=== PATIENT | male | born 1940 | race Caucasian/White ===

== ENCOUNTER 2020-02-22 07:45 | Outpatient (REF) | payer MEDICARE, SELFPAY ==
[2020-02-22 11:53] LABS: Albumin Level 3.9 g/dL (3.5-5.0); Anion Gap 15 (12-20); Blood Urea Nitrogen 36 mg/dL (9-16); Calcium 8.9 mg/dL (8.4-10.2); Carbon Dioxide 29 mmol/L (22-29); Chloride 105 mmol/L (96-108); Estimated Glomerular Filt Rate 46; Magnesium 2.5 mg/dL (1.6-2.6); Phosphorus 3.4 mg/dL (2.7-4.5); Potassium 4.7 mmol/l (3.3-5.1); Sodium 144 mmol/L (135-145)
[2020-02-22 11:58] LABS: Creatinine Urine 118.04 mg/dL; Protein/Creatinine Ratio, Ur 0.89 (<0.2); Total Protein Urine Random 105 mg/dL (<12)
[2020-02-22 12:18] LABS: Vitamin D 25-OH Total 47.7 ng/mL (>30)
[2020-02-22 13:40] LABS: Renal w Reflex Lab Use Only Order verified
[2020-02-23 18:57] LABS: Calcium (PTHI) 9.1 mg/dL (8.6-10.3); PTHI 124 pg/mL (14-64)
== END 2020-02-22 07:46 | disposition home or self-care (01) ==
LOC: HO.HMGCLDS 07:45
PROVIDERS: PCP Internal Medicine; Visit Provider Internal Medicine Nephrology
DX: I12.9 Hypertensive chronic kidney disease with stage 1 through stage 4 chronic kidney disease, or unspecified chronic kidney disease (principal); N18.30 Chronic kidney disease, stage 3 unspecified; D64.9 Anemia, unspecified; N17.9 Acute kidney failure, unspecified
CPT/HCPCS: 80051; 82040; 82306; 82310; 82565; 83735; 83970; 84100; 84156; 84520

== ENCOUNTER 2020-06-26 08:01 | Outpatient (REF) | payer MEDICARE, SELFPAY ==
[2020-06-26 11:39] LABS: Alanine Aminotransferase 39 U/L (0-40); Albumin Level 3.8 g/dL (3.5-5.0); Alkaline Phosphatase 95 U/L (39-117); Anion Gap 12 (12-20); Aspartate Amino Transferase 37 U/L (5-37); Blood Urea Nitrogen 36 mg/dL (9-16); Calcium 8.7 mg/dL (8.4-10.2); Carbon Dioxide 27 mmol/L (22-29); Chloride 106 mmol/L (96-108); Cholesterol 126 mg/dL; Estimated Glomerular Filt Rate 42; Glucose Fasting 116 mg/dL (60-99); HDL Cholesterol 31 mg/dL; LDL Cholesterol Calculated 72 mg/dl; Potassium 4.2 mmol/L (3.3-5.1); Sodium 141 mmol/L (135-145); Total Protein 6.7 g/dL (6.5-8.0); Triglycerides 119 mg/dL
[2020-06-26 11:52] LABS: Albumin Level 3.9 g/dL (3.5-5.0); Anion Gap 12 (12-20); Blood Urea Nitrogen 38 mg/dL (9-16); Calcium 9.1 mg/dL (8.4-10.2); Carbon Dioxide 27 mmol/L (22-29); Chloride 105 mmol/L (96-108); Estimated Glomerular Filt Rate 42; Magnesium 2.6 mg/dL (1.6-2.6); Phosphorus 3.5 mg/dL (2.7-4.5); Potassium 4.3 mmol/L (3.3-5.1); Sodium 140 mmol/L (135-145)
[2020-06-26 11:56] LABS: Vitamin D 25-OH Total 49.9 ng/mL (>30)
[2020-06-26 12:05] LABS: Creatinine Urine 164.17 mg/dL; Protein/Creatinine Ratio, Ur 0.68 (<0.2); Total Protein Urine Random 111 mg/dL (<12)
[2020-06-26 12:18] LABS: Renal w Reflex Lab Use Only Order verified
[2020-06-27 15:01] LABS: Calcium (PTHI) 9.4 mg/dL (8.6-10.3); PTHI 78 pg/mL (14-64)
== END 2020-06-26 08:02 | disposition home or self-care (01) ==
LOC: HO.HMGCLDS 08:01
PROVIDERS: PCP Internal Medicine; Referring Provider Nurse Practitioner; Visit Provider Internal Medicine Nephrology
DX: I12.9 Hypertensive chronic kidney disease with stage 1 through stage 4 chronic kidney disease, or unspecified chronic kidney disease (principal); D63.1 Anemia in chronic kidney disease; N18.30 Chronic kidney disease, stage 3 unspecified; N17.9 Acute kidney failure, unspecified; E21.3 Hyperparathyroidism, unspecified
CPT/HCPCS: 36415; 80051; 80053; 80061; 82040; 82306; 82310; 82565; 83735; 83970; 84100; 84156; 84520

== ENCOUNTER 2020-08-14 08:47 | Outpatient (REF) | payer MEDICARE, SELFPAY ==
[2020-08-14 11:59] LABS: Anion Gap 13 (12-20); Blood Urea Nitrogen 37 mg/dL (9-16); Calcium 9.5 mg/dL (8.4-10.2); Carbon Dioxide 32 mmol/L (22-29); Chloride 100 mmol/L (96-108); Estimated Glomerular Filt Rate 35; Glucose Random 113 mg/dL (60-115); Potassium 3.7 mmol/L (3.3-5.1); Sodium 141 mmol/L (135-145)
== END 2020-08-14 08:48 | disposition home or self-care (01) ==
LOC: HO.HMGCLDS 08:47
PROVIDERS: PCP Internal Medicine; Visit Provider Nurse Practitioner Acute Care
DX: I42.2 Other hypertrophic cardiomyopathy (principal)
CPT/HCPCS: 36415; 80048

== ENCOUNTER 2020-08-30 08:06 | Outpatient (REF) | payer MEDICARE, SELFPAY ==
[2020-08-30 11:53] LABS: B Type Natriuretic Peptide 576 pg/mL (<100)
== END 2020-08-30 08:07 | disposition home or self-care (01) ==
LOC: HO.HMGCLDS 08:06
PROVIDERS: PCP Internal Medicine; Visit Provider Nurse Practitioner
DX: I25.5 Ischemic cardiomyopathy (principal)
CPT/HCPCS: 36415; 83880

== ENCOUNTER 2020-09-05 14:11 | Outpatient (REF) | payer MEDICARE, SELFPAY ==
[2020-09-05 16:36] LABS: Hematocrit 34.2 % (42-52); Hemoglobin 10.8 g/dl (14.0-18.0); Mean Corpuscular HGB Conc 31.6 g/dl (31.0-36.0); Mean Corpuscular Hemoglobin 29.2 pg (27.0-33.0); Mean Corpuscular Volume 92.4 fL (80-98); Mean Platelet Volume 9.6 fL (9.4-12.4); Platelet Count 196 X10*3/uL (160-400); Red Cell Distribution Width 13.7 % (11.0-16.0); White Blood Count 6.9 X10*3/uL (4.8-10.8)
[2020-09-05 17:01] LABS: Anion Gap 13 (12-20); Blood Urea Nitrogen 40 mg/dL (9-16); Calcium 9.7 mg/dL (8.4-10.2); Carbon Dioxide 33 mmol/L (22-29); Chloride 100 mmol/L (96-108); Estimated Glomerular Filt Rate 44; Glucose Random 122 mg/dL (60-115); Potassium 4.2 mmol/L (3.3-5.1); Sodium 142 mmol/L (135-145)
== END 2020-09-05 14:12 | disposition home or self-care (01) ==
LOC: HO.HMGCLDS 14:11
PROVIDERS: PCP Internal Medicine; Visit Provider Internal Medicine Pulmonary Disease
DX: R04.2 Hemoptysis (principal)
CPT/HCPCS: 36415; 80048; 85027

== ENCOUNTER 2020-12-28 13:31 | Outpatient (REF) | payer MEDICARE, SELFPAY ==
[2020-12-28 16:37] LABS: Anion Gap 16 (12-20); Blood Urea Nitrogen 36 mg/dL (9-16); Calcium 9.9 mg/dL (8.4-10.2); Carbon Dioxide 29 mmol/L (22-29); Chloride 102 mmol/L (96-108); Estimated Glomerular Filt Rate 38; Glucose Random 99 mg/dL (60-115); Potassium 4.8 mmol/L (3.3-5.1); Sodium 142 mmol/L (135-145)
== END 2020-12-28 13:32 | disposition home or self-care (01) ==
LOC: HO.HMGCLDS 13:31
PROVIDERS: PCP Internal Medicine; Visit Provider Nurse Practitioner
DX: I25.5 Ischemic cardiomyopathy (principal)
CPT/HCPCS: 36415; 80048

== ENCOUNTER 2021-03-05 07:08 | Outpatient (REF) | payer MEDICARE, SELFPAY ==
[2021-03-05 11:44] LABS: Hematocrit 36.3 % (42.0-52.0); Hemoglobin 11.5 g/dl (14.0-18.0); Mean Corpuscular HGB Conc 31.7 g/dl (31.0-36.0); Mean Corpuscular Hemoglobin 28.9 pg (27.0-33.0); Mean Corpuscular Volume 91.2 fL (80.0-98.0); Mean Platelet Volume 9.8 fL (9.4-12.4); Platelet Count 217 X10*3/uL (160-400); Red Blood Count 3.98 X10*6/uL (4.60-5.80); Red Cell Distribution Width 15.7 % (11.0-16.0); White Blood Count 7.2 X10*3/uL (4.8-10.8)
[2021-03-05 12:00] LABS: Alanine Aminotransferase 18 U/L (0-40); Alkaline Phosphatase 83 U/L (39-117); Anion Gap 14 (12-20); Aspartate Amino Transferase 25 U/L (5-37); Bilirubin Total 0.8 mg/dL (0.0-1.0); Blood Urea Nitrogen 35 mg/dL (9-16); Calcium 9.7 mg/dL (8.4-10.2); Carbon Dioxide 28 mmol/L (22-29); Chloride 105 mmol/L (96-108); Estimated Glomerular Filt Rate 41; Glucose Random 118 mg/dL (60-115); Potassium 4.1 mmol/L (3.3-5.1); Sodium 143 mmol/L (135-145); Total Protein 7.4 g/dL (6.5-8.0)
[2021-03-05 12:22] LABS: B Type Natriuretic Peptide 713 pg/mL (<100)
== END 2021-03-05 07:09 | disposition home or self-care (01) ==
LOC: HO.HMGCLDS 07:08
PROVIDERS: PCP Internal Medicine; Visit Provider Internal Medicine
DX: E78.5 Hyperlipidemia, unspecified (principal); N18.30 Chronic kidney disease, stage 3 unspecified; I25.10 Atherosclerotic heart disease of native coronary artery without angina pectoris; I42.9 Cardiomyopathy, unspecified
CPT/HCPCS: 36415; 80053; 83880; 85027

== ENCOUNTER 2021-04-03 07:38 | Outpatient (REF) | payer MEDICARE, SELFPAY ==
--- NOTE | ~2021-04-03 | US_ITS ---
EXAMINATION: COLOR-FLOW DUPLEX IMAGING OF THE BILATERAL LOWER EXTREMITY ARTERIAL SYSTEM. VELOCITY MEASUREMENTS THROUGHOUT THE FEMORAL ARTERIES WITH ANKLE-BRACHIAL PERIPHERAL ARTERIAL TESTING. Interventional Radiologist: Kamlesh Samayoa M.D., F.S.I.R., F.A.C.R. CLINICAL INFORMATION: This is an 80-year-old male with hyperlipidemia. Peripheral arterial disease. Peripheral vascular disease, unspecified. RIGHT FEMORAL RUNOFF VELOCITIES: The right common femoral artery measures 123 cm/s and triphasic. The right profunda femoral artery is 74 cm/s and is biphasic. Right proximal superficial femoral artery measures 138 cm/s and biphasic. There is mild narrowing seen in this vessel. Mid superficial femoral artery is 141 cm/s and biphasic. Distal right superficial femoral artery measures 107 cm/s and is biphasic. Right popliteal velocity measures 101 cm/s and is biphasic. The posterior tibial artery velocity measures 114 cm/s and was biphasic. LEFT FEMORAL RUNOFF VELOCITIES: The left common femoral artery measures 139 cm/s and biphasic. The left profunda femoral artery is 172 cm/s and is biphasic. Left proximal superficial femoral artery measures 96 cm/s and monophasic. Mid superficial femoral artery is 41 cm/s and biphasic. Distal left superficial femoral artery measures 86 cm/s and is monophasic. Left popliteal velocity measures 36 cm/s and is monophasic. The posterior tibial artery velocity measures 28 cm/s and was monophasic. US/US arterial duplex LE BI IMPRESSION: 1 RIGHT SIDE: There is mild narrowing of the proximal right superficial femoral artery without hemodynamically significant stenosis. 2. LEFT SIDE: There is a suspicion for a proximal hemodynamically significant left superficial femoral artery stenosis with decreased velocities below this area. The focal stenosis is not identified however, the velocities drop significantly. Furthermore, there are monophasic waveforms extending throughout the superficial femoral artery and below the knee.
== END 2021-04-03 07:39 | disposition home or self-care (01) ==
LOC: HO.US 07:38
PROVIDERS: PCP Internal Medicine; Visit Provider Internal Medicine
DX: I73.9 Peripheral vascular disease, unspecified (principal); I42.9 Cardiomyopathy, unspecified
CPT/HCPCS: 93925

== ENCOUNTER 2021-05-11 06:59 | Outpatient (REF) | payer MEDICARE, SELFPAY ==
[2021-05-11 11:32] LABS: Anion Gap 13 (12-20); Blood Urea Nitrogen 32 mg/dL (9-16); Calcium 9.3 mg/dL (8.4-10.2); Carbon Dioxide 29 mmol/L (22-29); Chloride 104 mmol/L (96-108); Estimated Glomerular Filt Rate 44; Glucose Fasting 108 mg/dL (60-99); Potassium 4.4 mmol/L (3.3-5.1); Sodium 142 mmol/L (135-145)
== END 2021-05-11 07:00 | disposition home or self-care (01) ==
LOC: HO.HMGCLDS 06:59
PROVIDERS: PCP Internal Medicine; Visit Provider Nurse Practitioner
DX: I25.5 Ischemic cardiomyopathy (principal); I42.9 Cardiomyopathy, unspecified; I73.9 Peripheral vascular disease, unspecified
CPT/HCPCS: 36415; 80048

== ENCOUNTER 2022-05-23 12:28 | Emergency (ER) | payer MEDICARE, SELFPAY ==
--- NOTE | 2022-05-23 12:48 | ED.WEAKNESS ---
HPI - Weakness General Chief complaint: Epistaxis <Edilia Hunter CNP - Last Filed: 05/23/22 12:55> Stated complaint: Feels faint/Weakness <Edilia Hunter CNP - Last Filed: 05/23/22 12:55> Time Seen by Provider: 05/23/22 14:04 <Edilia Hunter CNP - Last Filed: 05/23/22 12:55> Source: patient and family () <LEVON Huerta - Last Filed: 05/23/22 19:08> Mode of arrival: ambulatory <LEVON Huerta Last Filed: 05/23/22 19:08> Limitations: no limitations <LEVON Huerta Last Filed: 05/23/22 19:08> History of Present Illness HPI Narrative: Patient is a 82 year old assigned male at with a history of CAD, CKD, and intermittent epistaxis presenting to the emergency department today with intermittent epistaxis. Patient states that he has been dealing with an intermittent bloody nose for months. Patient states that he has an appointment with an ENT on the 15th of this month. Patient states that his nose is fine and then he blows it and it starts bleeding again. Patient states that he has not held his Plavix or aspirin once since this started. Patient states that he is taking those for a stent he had placed years ago. Patient denies any dizziness, lightheadedness, abdominal pain, nausea, vomiting, fever, chills, blurry vision, double vision, loss of vision, chest pain, difficulty breathing, shortness of breath, back pain, night sweats, pain with urination, increased urinary frequency, increased urinary urgency, blood in his urine or stool, syncope or a near syncopal episode, recent trauma or falls, bowel incontinence, bladder incontinence, bowel retention, bladder retention, or any other complaints at this time. <LEVON Huerta - Last Filed: 05/23/22 19:08> Associated symptoms: denies other symptoms <LEVON Huerta Last Filed: 05/23/22 19:08> Related Data Home medications: Home Medications Medication Instructions Recorded Confirmed atorvastatin 80 mg tablet 80 mg PO DAILY 02/13/20 05/22/22 clopidogrel 75 mg tablet 75 mg PO DAILY 02/13/20 05/22/22 finasteride 5 mg tablet 5 mg PO DAILY 02/13/20 05/22/22 aspirin 81 mg tablet,delayed 81 mg PO DAILY 12/31/20 05/22/22 release calcitriol 0.25 mcg capsule mcg PO 12/31/20 05/22/22 nitroglycerin 0.4 mg sublingual 0 mg sublingual BEDTIME 12/31/20 05/22/22 tablet tafamidis 61 mg capsule (Vyndamax) 61 mg PO DAILY 12/31/20 05/22/22 lisinopril 5 mg tablet 5 mg PO DAILY 09/24/21 05/22/22 Previous Rx's Medication Instructions Recorded levalbuterol HCl 0.63 mg/3 mL 0.63 mg (3 mL) inhalation TID #72 02/13/20 solution for nebulization (Xopenex) mL bumetanide 1 mg tablet 1 mg PO BID #180 tabs 05/02/20 fluticasone propionate 50 1 spray intranasal DAILY #16 grams 01/01/21 mcg/actuation nasal spray,suspension allopurinol 300 mg tablet 300 mg PO DAILY #90 tabs 06/17/21 spironolactone 25 mg tablet 25 mg PO DAILY #90 tabs 06/19/21 amoxicillin 500 mg tablet 2,000 mg PO ONCE 2 days #8 tabs 03/28/22 azelastine 137 mcg (0.1 %) nasal 137 mcg (0.137 mL) intranasal Q12H 03/28/22 spray aerosol #30 mL metoprolol succinate 50 mg 75 mg PO DAILY #135 tabs 03/28/22 tablet,extended release 24 hr amoxicillin 875 mg tablet 875 mg PO BID 7 days #14 tabs 05/22/22 <Edilia Hunter CNP - Last Filed: 05/23/22 12:55> Allergies/Adverse reactions: Allergies Allergy/AdvReac Type Severity Reaction Status Date / Time Fluticasone nasal spray AdvReac Intermediate Nosebleed Uncoded 05/23/22 12:55 <Edilia Hunter CNP - Last Filed: 05/23/22 12:55> Review of Systems Constitutional: Constitutional: Reports no additional constitutional complaints, Denies chills, Denies fever(s) and Denies night sweats <LEVON Huerta Last Filed: 05/23/22 19:08> Eyes: Eyes: Reports no additional eye complaints, Denies blurry vision, Denies change in vision, Denies diplopia, Denies eye discharge, Denies loss of vision and Denies eye pain <LEVON Huerta Last Filed: 05/23/22 19:08> ENT: Denies dizziness and Reports epistaxis <LEVON Huerta - Last Filed: 05/23/22 19:08> Cardiovascular: Cardiovascular: Reports no additional cardiovascular complaints, Denies chest pain, Denies lightheadedness, Denies Loss of Consciousness and Denies dyspnea <LEVON Huerta - Last Filed: 05/23/22 19:08> Respiratory: Respiratory: Reports no additional respiratory complaints and Denies dyspnea <LEVON Huerta - Last Filed: 05/23/22 19:08> Gastrointestinal: Gastrointestinal: Reports no additional gastrointestinal complaints, Denies abdominal pain, Denies melena, Denies hematochezia, Denies change in bowel habits and Denies change in stool character <LEVON Huerta - Last Filed: 05/23/22 19:08> Genitourinary: Genitourinary: Reports no additional male genitourinary complaints, Denies hematuria, Denies oliguria, Denies difficulty urinating, Denies dysuria, Denies urinary frequency, Denies urinary hesitancy, Denies urinary incontinence and Denies urinary urgency <LEVON Huerta Last Filed: 05/23/22 19:08> Musculoskeletal: Musculoskeletal: Reports no additional musculoskeletal complaints, Denies numbness and Denies tingling <LEVON Huerta - Last Filed: 05/23/22 19:08> Neurologic: Denies dizziness, Denies loss of vision, Denies numbness and Denies tingling <LEVON Huerta Last Filed: 05/23/22 19:08> Psychiatric: Psychiatric: Reports no additional psychiatric complaints <LEVON Huerta - Last Filed: 05/23/22 19:08> Endocrine: Endocrine: Reports no additional endocrine complaints <LEVON Huerta Last Filed: 05/23/22 19:08> Hematologic/Lymphatic: Hematologic/Lymphatic: Reports no additional hematologic/lymphatic complaints <LEVON Huerta - Last Filed: 05/23/22 19:08> Allergic/Immunologic: Allergic/Immunologic: Reports no additional allergic/immunologic complaints <LEVON Huerta - Last Filed: 05/23/22 19:08> [facility] Past Medical History Attestation statement: The following information was validated with the patient. (all information was valiated with the patient's ) <LEVON Huerta - Last Filed: 05/23/22 19:08> Source: old records reviewed, obtained from family (patient's ) and nursing notes reviewed <LEVON Huerta - Last Filed: 05/23/22 19:08> Medical History: Medical History BPH (benign prostatic hyperplasia) Bradycardia CAD (coronary artery disease) Cardiomyopathy CKD (chronic kidney disease), stage III Claudication of left lower extremity Flexor tenosynovitis of finger Gout Hyperlipemia Spinal stenosis Thoracic aortic aneurysm <Edilia Hunter CNP - Last Filed: 05/23/22 12:55> Surgical History: Surgical History H/O prior ablation treatment History of ankle surgery History of carpal tunnel surgery History of fusion of cervical spine History of shoulder surgery Hx of cholecystectomy <Edilia Hunter CNP - Last Filed: 05/23/22 12:55> Family History Family History: Family History Father COPD (chronic obstructive pulmonary disease) Mother Heart disease Colon cancer CVD (cardiovascular disease) <Edilia Hunter CNP - Last Filed: 05/23/22 12:55> Social History Social History: Social History Housing: House Patient Tobacco Use Status: Never used Tobacco Smoked in Last 30 Days: No e-Cigarette/Vaping Use: Never Used Use of substances other than those prescribed or required for medical reasons: No Any prior treatment program specific to substance use: No Advance Directives: Yes Advance Directives Information Provided: Yes Advance Directives on File: No Current occupational status: retired Cognitive needs: No Hearing needs: Yes Vision needs: No <Edilia Pitts AXEL Hunter - Last Filed: 05/23/22 12:55> Physical Exam Vital Signs: Vital Signs: Last Vital Signs Temp 97.0 F 05/23/22 12:49 Pulse 73 05/23/22 12:49 Resp 18 05/23/22 12:49 BP 165/67 H 05/23/22 12:49 Pulse Ox 98 05/23/22 12:49 O2 Del Method 05/23/22 12:49 BMI result Body Mass Index 25.2 <Edilia Hunter [employer] - Last Filed: 05/23/22 12:55> Vital Signs: Last Vital Signs Temp 97.0 F 05/23/22 12:49 Pulse 73 05/23/22 12:49 Resp 18 05/23/22 12:49 BP 165/67 H 05/23/22 12:49 Pulse Ox 98 05/23/22 12:49 O2 Del Method 05/23/22 12:49 BMI result Body Mass Index 25.2 <LEVON Huerta - Last Filed: 05/23/22 19:08> Const: General: cooperative, no acute distress, alert and awake <LEVON Huerta - Last Filed: 05/23/22 19:08> Nutritional Appearance: well nourished <LEVON Huerta - Last Filed: 05/23/22 19:08> Orientation/consciousness: patient oriented x3 <LEVON Huerta - Last Filed: 05/23/22 19:08> Limitations: no limitations <LEVON Huerta - Last Filed: 05/23/22 19:08> HEENT: Head: Yes normal to inspection and Yes atraumatic <LEVON Huerta - Last Filed: 05/23/22 19:08> Ears: hearing grossly normal bilaterally and external ears normal <LEVON Huerta - Last Filed: 05/23/22 19:08> General nose exam: Normal external nose present, no nasal discharge noted and no epistaxis <LEVON Huerta - Last Filed: 05/23/22 19:08> Face and sinus: Yes normal facial exam, No abrasion and No laceration <LEVON Huerta - Last Filed: 05/23/22 19:08> Mouth: Normal oral and palatal mucosa present, no drooling and no muffled voice <Imanilanette Garzacira AK - Last Filed: 05/23/22 19:08> Eyes: General: appearance normal, both eyes and all related structures <Imani Garzacira AK - Last Filed: 05/23/22 19:08> Periorbital: periorbital findings normal <Imani Garzacira AK - Last Filed: 05/23/22 19:08> Eyelids: Yes eyelids normal <Imani Garzacira AK - Last Filed: 05/23/22 19:08> Conjunctivae: conjunctivae normal <Imani Garzacira AK - Last Filed: 05/23/22 19:08> Pupils: Equal, round and reactive pupils present <Imanilanette Garzacira AK - Last Filed: 05/23/22 19:08> EOM: EOMs intact bilaterally <Imanilanette Garzacira AK - Last Filed: 05/23/22 19:08> Neck: Neck: Yes normal visual inspection, Yes full ROM and Yes no lymphadenopathy <Imani Garzacira AK - Last Filed: 05/23/22 19:08> Chest: Chest palpation & inspection: normal inspection of the chest <Imani Norah AK - Last Filed: 05/23/22 19:08> Resp: Effort & Inspection: normal respiratory effort and able to speak in complete sentences <Imanilanette Garzacira AK - Last Filed: 05/23/22 19:08> Auscultation: clear to auscultation bilaterally <Imani Almazan AK - Last Filed: 05/23/22 19:08> Cardio: Rate: regular rate <Imanilanette Garzacira AK - Last Filed: 05/23/22 19:08> Rhythm: regular rhythm <Imani Norah AK - Last Filed: 05/23/22 19:08> GI: Inspection: Yes normal to inspection <Imani Norah AK - Last Filed: 05/23/22 19:08> Palpation (GI): Soft to palpation, not firm, nontender, no guarding and not rigid <Imani Norah AK - Last Filed: 05/23/22 19:08> Neuro: General: patient oriented x3 and moves all extremities <Imani Almazan AK - Last Filed: 05/23/22 19:08> Cranial nerves: Yes Equal, round and reactive pupils present <Imani AlmazanLEVON - Last Filed: 05/23/22 19:08> Cognition (Neuro): normal cognition <Imani AlmazanLEVON - Last Filed: 05/23/22 19:08> Motor exam (neuro): 5/5 motor strength present throughout <Imani AlmazanLEVON - Last Filed: 05/23/22 19:08> Sensory Exam: Normal double simultaneous stimulation for sensation <Imani Almazan PA - Last Filed: 05/23/22 19:08> Coordination: pofflb-mg-mier test normal <Imani AlmazanLEVON - Last Filed: 05/23/22 19:08> Extrem: General: Yes normal to inspection, Yes full ROM and Yes capillary refill normal <Imani AlmazanLEVON - Last Filed: 05/23/22 19:08> Psych: Appearance: grossly normal <Imani AlmazanLEVON - Last Filed: 05/23/22 19:08> Mental Status: mental status grossly normal <Imani AlmazanLEVON - Last Filed: 05/23/22 19:08> Affect: normal affect <Imani AlmazanLEVON - Last Filed: 05/23/22 19:08> Attitude: cooperative <Imani AlmazanLEVON - Last Filed: 05/23/22 19:08> Thought process: Normal thought process present <Imani AlmazanLEVON - Last Filed: 05/23/22 19:08> Thought content: Normal thought content present <Imani AlmazanLEVON - Last Filed: 05/23/22 19:08> Insight: Good insight present (Psych) <Imani AlmazanLEVON - Last Filed: 05/23/22 19:08> Course Course Course Narrative: This is an RME: Additional HPI, ROS, PE not included below will be deferred to primary provider. Patient is an 82-year-old male presents to the emergency department for evaluation with . L > R epistaxis, clots this morning feeling into the throat as well. Was seen at Urgent Care yesterday for the same. This has been occuring intermittently states due to deviated nasal septum and perisstent nasal congestion. States he was diagnosed yesterday with sinus infection, given RX for amoxicillin and referred to ENT 06/04/2022. He is currently taking plavix and aspirin. No active bleeding at this time, but states has been occuring persistently throughout the day and is concerned about continued bleeding, in past has required cauterization. <Edilia Hunter CNP - Last Filed: 05/23/22 12:55> Medical Decision Making Medical Decision Making MDM Narrative: Patient is an 82 year old assigned male at with a history of CAD, CKD, and intermittent epistaxis presenting to the emergency department today with another episode of intermittent epistaxis. Patient's physical exam was unremarkable. I explained my physical exam findings to the patient and the patient's . I answered all questions asked by the patient and the patient's . Patient's nose was not bleeding while he was in the department. No bleed was visualized on physical exam. I reviewed all treatment options with the patient and his including nasal packing. We agreed the best course of action would be not to pack but rather have the patient stop blowing his nose and hold his Eliquis and Aspirin for 1 day then resume and follow up with ENT as scheduled. I stressed the importance of the patient taking the rest of his medication as prescribed. I stressed the importance of the patient following up with his primary care provider and his ENT. I stressed the importance of the patient returning to the emergency department immediately if his symptoms were to worsen or if he were to develop any dizziness, shortness of breath, difficulty breathing, chest pain, blurry vision, loss of vision, nausea, vomiting, abdominal pain, fever, chills, back pain, or any other complaints. Patient and the patient's verbalized agreement and understanding with this treatment plan and discharge. <LEVON Huerta - Last Filed: 05/23/22 19:08> Differential Diagnosis Differential Diagnoses: The differential diagnosis associated with the presentation includes <LEVON Huerta - Last Filed: 05/23/22 19:08> intermittent epistaxis <LEVON Huerta - Last Filed: 05/23/22 19:08> Independent Historian Clinical information obtained from an independent historian. History obtained from or confirmed by: Other (patient's ) <LEVON Huerta - Last Filed: 05/23/22 19:08> Discharge Plan Discharge Clinical Impression: Epistaxis <Edilia Thompsonglenna Hunter CNP - Last Filed: 05/23/22 12:55> Patient Disposition: Home, Self-Care <Edilia Pitts AXEL Hunter - Last Filed: 05/23/22 12:55> Instructions: Nosebleed (ED) <Ediliamarisa Hunter CNP - Last Filed: 05/23/22 12:55> Additional Instructions: HOLD your Plavix and Aspirin on 05/24/2022 and restart it on 05/25/2022. DO NOT BLOW YOUR NOSE. Follow up with your primary care provider and an ENT. Return to the emergency department immediately if your symptoms worsen or if you develop any dizziness, shortness of breath, difficulty breathing, chest pain, blurry vision, loss of vision, nausea, vomiting, abdominal pain, fever, chills, back pain, or any other complaints. <Ediliamarisa Hunter CNP - Last Filed: 05/23/22 12:55> Prescriptions: No Action bumetanide 1 mg tablet 1 mg PO BID Qty: 180 0RF Rx Instructions: take 1 tablet twice a day fluticasone propionate 50 mcg/actuation spray,suspension 1 spray intranasal DAILY Qty: 16 6RF allopurinol 300 mg tablet 300 mg PO DAILY Qty: 90 3RF spironolactone 25 mg tablet 25 mg PO DAILY Qty: 90 3RF finasteride 5 mg tablet 5 mg PO DAILY clopidogrel 75 mg tablet 75 mg PO DAILY atorvastatin 80 mg tablet 80 mg PO DAILY levalbuterol HCl [Xopenex] 0.63 mg/3 mL solution for nebulization 0.63 mg inhalation TID Qty: 72 3RF aspirin 81 mg tablet,delayed release (DR/EC) 81 mg PO DAILY nitroglycerin 0.4 mg tablet, sublingual 0 mg sublingual BEDTIME Vyndamax 61 mg capsule 61 mg PO DAILY calcitriol 0.25 mcg capsule PO azelastine 137 mcg (0.1 %) aerosol,spray 137 mcg intranasal Q12H Qty: 30 2RF Rx Instructions: administer into each nostril metoprolol succinate 50 mg tablet extended release 24 hr 75 mg PO DAILY Qty: 135 3RF amoxicillin 500 mg tablet 2,000 mg PO ONCE 2 Days Qty: 8 4RF Rx Instructions: 1 hr before dental procedure amoxicillin 875 mg tablet 875 mg PO BID 7 Days Qty: 14 0RF lisinopril 5 mg tablet 5 mg PO DAILY <Edilia Hunter CNP - Last Filed: 05/23/22 12:55> Referrals: Mayra Calvillo MD [Primary Care Provider] - Jeff Simpson [Physician] - (Call to see if you can get an ENT appointment sooner than the . ) <Edilia Hunter CNP - Last Filed: 05/23/22 12:55> Interventions: ED Discharge Assessment Last Done: 05/23/22 15:09 <Edilia Hunter CNP - Last Filed: 05/23/22 12:55> Discharge Date/Time: 05/23/22 15:09 <Edilia Hunter CNP - Last Filed: 05/23/22 12:55> Print Language: Kosovan <Edilia Hunter CNP - Last Filed: 05/23/22 12:55>
[2022-05-23 12:49] VITALS: BP 165/67; PULSE 73; RESP 18; TEMP 36.1; O2SAT 98; BMI 25.2
== END 2022-05-23 15:09 | disposition home or self-care (01) ==
PROVIDERS: Emergency Provider Emergency Medicine Emergency Medical Services; PCP Internal Medicine
DX: R04.0 Epistaxis (principal); I25.10 Atherosclerotic heart disease of native coronary artery without angina pectoris; R53.1 Weakness; Z79.899 Other long term (current) drug therapy
CPT/HCPCS: 99282; 99284

== ENCOUNTER 2022-12-05 08:04 | Outpatient (AMB) | payer MEDICARE, SELFPAY ==
[2022-12-05 08:07] VITALS: BP 124/66; PULSE 88; O2SAT 99; BMI 25.0
--- NOTE | 2022-12-05 08:07 | MHC.PC.OV ---
Vital Signs 12/05/22 08:07 Height 5 ft 11 in Weight 179 lb BMI 25.0 BP 124/66 Blood Pressure Location Rt brachial Position Sitting Pulse 88 Pulse Source Pulse Oximeter Pulse Oximetry (%) 99 Oxygen Delivery Method Room Air Intake Visit Reasons: Hospital follow up Intake Note: Pt is here today for Hospital follow up visit. Pt was in the hospital due to SOB and his BP was high. Allergies Fluticasone nasal spray Adverse Reaction (Intermediate, Uncoded 12/05/22 08:13) Nosebleed Tobacco use date assessed: 12/05/22 Fall risk assessment: No Falls in past year Last assessed Fall Risk: 12/05/22 Dental Screening Dental Screen Date: 12/05/22 Did you have a dental visit in the last 12 months?: Yes Did you have a dental problem in the last 6 months where you did not have access to dental care?: No Was dental information given to patient?: Patient has dentist HPI Hospital follow up HPI Details Pt presents for f/u [facility] ER visit for SOB, getting worse for the last month. Pt f/u with [facility] Dr. Miranda and has called the office to schedule OV. Patient denies chest pain palpitations PND or orthopnea. His shortness of breath is back at baseline. Lisinopril was discontinued by rubber and pounder because of worsening renal function. [facility] Medical History Claudication of left lower extremity CAD (coronary artery disease) Hyperlipemia CKD (chronic kidney disease), stage III Bradycardia Cardiomyopathy BPH (benign prostatic hyperplasia) Spinal stenosis Gout Thoracic aortic aneurysm Flexor tenosynovitis of finger Surgical History History of fusion of cervical spine H/O prior ablation treatment History of ankle surgery History of carpal tunnel surgery History of shoulder surgery Hx of cholecystectomy Family History Father COPD (chronic obstructive pulmonary disease) Mother Heart disease Colon cancer CVD (cardiovascular disease) Social History Housing: House Patient Tobacco Use Status: Never used Tobacco e-Cigarette/Vaping Use: Never Used Current occupational status: retired Cognitive needs: No Hearing needs: Yes Vision needs: No Questionnaire Thrive Questionnaire Date Thrive assessed: 12/05/22 I am a: Patient What is your living situation today?: I have a steady place to live Within the past 12 months, did the food you bought not last and you didn't have the money to get more?: Never true Within the past 12 months, did you worry whether your food would run out before you got money to buy more?: Never true Do you have trouble paying for medicines?: No Do you have trouble getting transportation to medical appointments?: No Do you have trouble paying your heating and electricity bill?: No Do you have trouble taking care of your child, family member or friend?: No Do you have trouble with day-to-day activities such as bathing, preparing meals, shopping, managing finances, etc.?: No Are you currently unemployed and looking for a job?: No Are you interested in more education?: No Please select the resources that you would like help with: None Currently or been in a relationship where the following occur: no concerns reported AUDIT C Alcohol Use Questionnaire (AUDIT-C) 1. How often do you have a drink containing alcohol?: Monthly or less 2. How many drinks containing alcohol do you have on a typical day when you are drinking?: 1 or 2 3. How often do you have six or more drinks on one occasion?: Never Total Score: 1 HARPAL-7 AMB Questionnaire HARPAL-7 Date HARPAL - 7 assessed: 12/05/22 Feeling nervous, anxious, or on edge: 0 = Not at all Not being able to stop or control worryin = Not at all Worrying too much about different things: 0 = Not at all Trouble relaxin = Not at all Being so restless that it is hard to sit still: 0 = Not at all Becoming easily annoyed or irritable: 0 = Not at all Feeling afraid as if something awful might happen: 0 = Not at all Total HARPAL-7 score (0-4 normal; 5-9 mild; 10-14 moderate; 15-21 severe): 0 Source: Developed by Drs. Tomas Duran, Marion Miranda, Jony Kyle and colleagues, with an educational [place] from [employer]. Review of Systems Const All systems reviewed & are unremarkable except as noted in HPI and below Reports no additional complaints Eyes Reports no additional complaints ENT Reports no additional complaints Card Reports no additional complaints Resp Reports no additional complaints Reports no additional complaints Physical exam (Primary Care) Vital Signs: Last Vital Signs Pulse 88 12/05/22 08:07 BP 124/66 12/05/22 08:07 Pulse Ox 99 12/05/22 08:07 Oxygen Delivery Method Room Air 12/05/22 08:07 BMI result Body Mass Index 25.0 Tobacco/Smoking Status: Tobacco use Status Tobacco use date assessed 12/05/22 12/05/22 08:18 Patient Tobacco Use Status Never used Tobacco 12/05/22 08:18 e-Cigarette/Vaping Use Never Used 12/05/22 08:07 Thrive Assessment: Date of Thrive Assessment Date Thrive assessed 12/05/22 12/05/22 08:25 Currently or been in a relationship where the following occur: no concerns reported Const General: no acute distress HENMT Face and sinus: Yes normal facial exam Resp Effort & Inspection: normal respiratory effort Auscultation: diminished lung sounds Cardio Rhythm: regular rhythm Heart sounds: S1 normal heart sound present and S2 normal heart sound present GI Inspection: Yes normal to inspection Palpation (GI): Soft to palpation Assessment and Plan Assessment & Plan (1) Cardiomyopathy: 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 Vivar/ Dr. Miranda Code(s): I42.9 - Cardiomyopathy, unspecified Plan: Patient has progressive dyspnea on exertion due to worsening cardiomyopathy amyloidosis. He will follow-up with contract designer closely (2) CKD (chronic kidney disease), stage III: Comment: Follow-up with Dr. Garcia Code(s): N18.30 - Chronic kidney disease, stage 3 unspecified Plan: Monitor renal function and avoid NSAIDs, follow-up with nephrology Coding Level of Care Code Est Pt Level 3 (35335) Diagnoses Cardiomyopathy I42.9 CKD (chronic kidney disease), stage III N18.30
== END 2022-12-05 08:54 | disposition home or self-care (01) ==
PROVIDERS: PCP Internal Medicine; Visit Provider Internal Medicine
DX: I42.9 Cardiomyopathy, unspecified (principal); N18.30 Chronic kidney disease, stage 3 unspecified
CPT/HCPCS: 99213

== ENCOUNTER 2023-11-16 09:47 | Outpatient (AMB) | payer MEDICARE, SELFPAY ==
--- NOTE | 2023-11-16 10:01 | A.OFFVIS_ITS ---
Intake Vital Signs 11/16/23 10:08 Height 5 ft 11 in Weight 178 lb BMI 24.8 BP 126/76 Blood Pressure Location Lt brachial Position Sitting Pulse 85 Pulse Source Pulse Oximeter Pulse Oximetry (%) 96 Oxygen Delivery Method Room Air Intake Visit Reasons: [id number] bobby from 09/15/23 Allergies Fluticasone nasal spray Adverse Reaction (Intermediate, Uncoded 11/16/23 10:13) Nosebleed HPI G0439 bobby from 09/15/23 HPI Details Initiated the conversation about Advanced Directives. Advanced Directives help? patients prepare for current and future decisions about their medical treatment? and place of care. Discussed with patient that it is a process where a patients? current condition and prognosis are reviewed, their wishes for information? regarding their illness are elicited, and likely medical dilemmas are presented? and options discussed. The form can be amended as needed, reviewed yearly and? make changes as needed IPPE/AWV ? year old presents? for her ? Annual? Wellness Visit, initial visit.? Medical / Social History Reviewed? Past Medical History ?Yes? . ? [place]? of Care / Care Team list updated ?Yes . ? Surgical/Hospitalization? History ?Yes . ? Current Medications? (including OTC and supplements) ?Yes . ? Family History ?Yes? . ? Tobacco? Control form ?Yes . ? AUDIT-C (Alcohol use) form? ?Yes . ? Illicit drug use in Social? History ?Yes . ? Current diagnosis of? depression? ?No ? Appropriate PHQ2/PHQ9? completed ?Yes . ? Data entered by ?Medical? Engineer Conductor and reviewed by provider ? Fall Risk ? Fall? History? Have you had any falls with? injury in the past year? ?No . ? Have you had two or more? falls in the past year? ?No . ? Fall Risk Assessment: ?No? falls in the past year . ? HRA filled out by? the patient, reviewed by Provider and scanned. ? IPPE/AWV ? Balance? [place]berg? ?Yes . ? Tandem? walk ?Yes . ? Walk and? Turn ?Yes . ? Rise from? sit to stand ?Yes . ?Vision? Corrective? lens ?Yes ? Vision? screen ? Up-to-date, has an appointment [] for vision? screening and glaucoma screening ?Hearing? Whisper? test ?pass .? Initiated the conversation about Advanced Directives. Advanced Directives help? patients prepare for current and future decisions about their medical treatment? and place of care. Discussed with patient that it is a process where a patients? current condition and prognosis are reviewed, their wishes for information? regarding their illness are elicited, and likely medical dilemmas are presented? and options discussed. The form can be amended as needed, reviewed yearly and? make changes as needed Written? Plan?Completed. See Patient? Documents. [facility] Medical History (Updated 11/16/23 @ 13:06 by Mayra Calvillo MD) Claudication of left lower extremity CAD (coronary artery disease) Hyperlipemia CKD (chronic kidney disease), stage III Bradycardia Cardiomyopathy BPH (benign prostatic hyperplasia) Spinal stenosis Gout Thoracic aortic aneurysm Flexor tenosynovitis of finger Surgical History History of fusion of cervical spine H/O prior ablation treatment History of ankle surgery History of carpal tunnel surgery History of shoulder surgery Hx of cholecystectomy Family History Father COPD (chronic obstructive pulmonary disease) Mother Heart disease Colon cancer CVD (cardiovascular disease) Social History Housing: House Patient Tobacco Use Status: Never used Tobacco e-Cigarette/Vaping Use: Never Used Current occupational status: retired Cognitive needs: No Hearing needs: Yes Vision needs: No Questionnaire Medicare Wellness Checkup What is your age?: 78 or older What gender do you identify with?: male During the past 4 weeks, how much have you been bothered by emotional problems such as feeling anxious, depressed, irritable, sad or downhearted, and blue?: not at all During the past 4 weeks, has your physical & emotional health limited your social activities with family, friends, neighbors, or groups?: not at all During the past 4 weeks, how much bodily pain have you generally had?: very mild pain During the past 4 weeks, was someone available to help you if you needed & wanted help?: yes, as much as I wanted During the past 4 weeks, what was the hardest physical activity you could do for at least 2 minutes?: light Can you get to places out of walking distance without help? (For eg., can you travel alone on buses, taxis or drive your car?): Yes Can you go shopping for groceries or clothes without someone's help?: Yes Can you prepare your own meals?: Yes Can you do your housework without help?: Yes Because of any health problems, do you need the help of another person with your personal care needs such as eating, bathing, dressing or getting around the house?: No Can you handle your own money without help?: Yes During the past 4 weeks, how would you rate your health in general?: good During the past 4 weeks how have things been going for you?: good & bad parts about equal Are you having difficulties driving your car?: no Do you always fasten your seat belt when you are in a car?: yes, usually During past 4 weeks, have you been bothered by the following: never: Sexual problems?, Trouble eating well?, Teeth or denture problems? and Problems using the telephone? and sometimes: Falling or dizzy when standing up and Tiredness or fatigue? Have you fallen 2 or more times in the past year?: No Are you afraid of falling?: No Are you a smoker?: no During the past 4 weeks, how many drinks of wine, beer, or other alcoholic beverages did you have?: 1 drink or less per week Do you exercise for about 20 minutes 3 or more times a week?: yes, most of the time Have you been given information to help with the following?: no: Hazards in your house that might hurt you? and no: Keeping track of your medications? How often do you have trouble taking medicines the way you have been told to take them?: I always take medicine as prescribed How confident are you that you can control & manage most of your health problems?: very confident What is your race?: White Mini Mental State Exam (MMSE) Orientation What is the (year) (season) (date) (day) (month)?: year, season, date, day and month Where are we (state) (county) (town or city) (hospital) (floor)?: state, county, town or city, hospital/clinic and floor Registration Name of 3 unrelated objects clearly and slowly, then ask patient to repeat all 3 of them. (1st repeat determines score. Make sure they can repeat all three): object 1, object 2 and object 3 Attention & Calculation (CHOOSE ONE) Spell WORLD backwards (DLROW): 5 letters Recall Ask patient to repeat the 3 items from question #3.: object 1, object 2 and object 3 Language Show patient a wristwatch & ask what it is. Repeat for pencil.: watch and pencil Ask the patient to repeat the phrase 'No ifs, ands, or buts' after you.: correct Ask the patient to 'take a piece of paper with their right hand' 'fold paper in half' 'place paper on floor': take paper in right hand, fold paper in half and place paper on floor Print the sentence 'CLOSE YOUR EYES' on a piece. If patient actually closes eyes then score.: followed written direction Give patient a blank piece of paper & ask to write a sentence. Score if it contains a noun & verb.: sentence contains subject and verb Score Score: 29 Activity of Daily Living Bathing - sponge bath, tub bath or shower: receives no assistance (gets in/out by self, if usual bathing means Dressing - getting clothes from closets & drawers, including inner/outer garments & fasteners.: gets clothes & gets completely dressed without help Toileting - going to the 'toilet room' for urine/bowel elimination & cleaning self/arranging clothes: goes to toilet room, cleans self, arranges clothes without help Transfer: moves in & out of bed and chair without help (may use support object) Continence: controls urination/bowel movements completely by self Feeding: feeds self without help Total Score: 0 Information obtained from: patient Using telephone: independent Traveling: independent Shopping: independent Preparing meals: independent Housework: independent Taking medicine: independent Managing money: independent PHQ-9 Over the last 2 weeks, how often have you been bothered by any of the following problems? 1. Little interest or pleasure in doing things: not at all 2. Feeling down, depressed, or hopeless: not at all 3. Trouble falling or staying asleep, or sleeping too much: not at all 4. Feeling tired or having little energy: not at all 5. Poor appetite or overeating: not at all 6. Feeling bad about yourself - or that you are a failure or have let yourself or your family down: not at all 7. Trouble concentrating on things, such as reading the newspaper or watching television: not at all 8. Moving or speaking so slowly that other people could have noticed. Or the opposite - being so fidgety or restless that you have been moving around a lot more than usual: not at all 9. Thoughts that you would be better off or of hurting yourself in some way: not at all Total score: 0 Depression Screening Interpretation: Negative Depression Screening Done: Yes 00208 - PHQ-9 Billing: Yes Source: Developed by Drs. Tomas Duran, MarionJony Husain and colleagues, with an educational [place] from [employer]. Review of Systems Const All systems reviewed & are unremarkable except as noted in HPI and below Eyes Reports no additional complaints ENT Reports no additional complaints Card Reports no additional complaints Resp Reports no additional complaints GI Reports no additional complaints Reports no additional complaints Physical Exam Vital Signs: Last Vital Signs Pulse 85 11/16/23 10:08 BP 126/76 11/16/23 10:08 Pulse Ox 96 11/16/23 10:08 Oxygen Delivery Method Room Air 11/16/23 10:08 BMI result Body Mass Index 24.8 Const General: no acute distress HEENT Head: Yes normal to inspection Ears: hearing grossly normal bilaterally Neck Neck: Yes no lymphadenopathy and Yes supple Resp Effort & Inspection: normal respiratory effort Auscultation: clear to auscultation bilaterally Cardio Rhythm: regular rhythm Heart sounds: S1 normal heart sound present and S2 normal heart sound present GI Inspection: Yes normal to inspection Palpation (GI): Soft to palpation Percussion: Yes normal to percussion Extrem General: Yes no clubbing, cyanosis or edema Assessment & Plan Assessment & Plan (1) Claudication of left lower extremity: Comment: Follow-up with [facility] vascular surgeon Code(s): I73.9 - Peripheral vascular disease, unspecified Plan: Continue aspirin Plavix and follow-up with vascular surgeon (2) Cardiomyopathy: 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 Vivar/ Dr. Miranda, Echo 03/14 EF 45% Code(s): I42.9 - Cardiomyopathy, unspecified Plan: Continue current medications follow-up with Cardiology (3) CAD (coronary artery disease): Comment: s/p LAD ERNIE 2018, s/p RCA ERNIE 2020 at [facility] Dr. Miranda Code(s): I25.10 - Atherosclerotic heart disease of [place] coronary artery without angina pectoris Plan: Continue current medications follow-up with the Cardiology (4) CKD (chronic kidney disease), stage III: Comment: Follow-up with Dr. Garcia Code(s): N18.30 - Chronic kidney disease, stage 3 unspecified Plan: Avoid nephrotoxins monitor renal function. Patient will have a blood work at [facility] in 2 weeks Quality Reporting (2019) Depression/Bipolar (159/160/161/177) PHQ-9: Total score: 0 Coding Level of Care Code Medicare Subsequent (G0439) Diagnoses Claudication of left lower extremity I73.9 Cardiomyopathy I42.9 CAD (coronary artery disease) I25.10 CKD (chronic kidney disease), stage III N18.30 CPT Codes Advance Care Planning - Advance Care Planning discussion: On file, no changes ([id number]) Advance Care Planning - Time spent: 1-15 minutes, on File ([id number]) Advance Care Planning Advance Care Planning discussion: On file, no changes Forms completed: Health Care Proxy Time spent: 1-15 minutes, on File
[2023-11-16 10:08] VITALS: BP 126/76; PULSE 85; O2SAT 96; BMI 24.8
== END 2023-11-16 11:26 | disposition home or self-care (01) ==
PROVIDERS: PCP Internal Medicine; Visit Provider Internal Medicine
DX: Z00.00 Encounter for general adult medical examination without abnormal findings (principal); I73.9 Peripheral vascular disease, unspecified; I42.9 Cardiomyopathy, unspecified; N18.30 Chronic kidney disease, stage 3 unspecified; I25.10 Atherosclerotic heart disease of native coronary artery without angina pectoris
CPT/HCPCS: 1123F; G0439

== ENCOUNTER 2024-03-03 13:14 | Outpatient (AMB) | payer MEDICARE, SELFPAY ==
--- OUTSIDE RECORDS SUMMARY | 2024-03-03 13:15 | XMS_ITS | Continuity of Care Document ---
Author Organization [facility] Address [address] [place] [id number]- Care Team Providers Care Instructor Physical Name Role Phone Mayra Calvillo MD Primary Care Physician Encounter [facility] [place] Date(s): 01/26/24 - 02/25/24 [facility] [address] [place] [id number] Attending Physician: Janes Morgan Admitting Physician: Janes Morgan Referring Physician: AdmtrJanes Encounter Type: Triage Allergies, Adverse Reactions, Alerts No Known Medication Allergies Substance Criticality Severity Reaction Reaction Severity Status Other Environmental Allergy 1 Active 1flowers and perfumes Immunizations Given and Recorded Vaccine Date Status Refusal Reason influenza virus vaccine, inactivated 03/01/19 Give n Medications albuterol 0.083% inhalation solution 3 mL = 2.5 mg, Neb, Every 6 hours, Maintenance, 12/13/18 8:54:58 PM EDT, Solution Start Date: 12/13/18 Status: Ordered Repeat number: 1 albuterol CFC free 90 mcg/inh inhalation aerosol 2, puffs, Inhalation, 4 times a day, PRN, Maintenance, 08/25/18 8:43:26 PM EDT, Aerosol Start Date: 08/25/18 Status: Ordered Repeat number: 1 allopurinol 300 mg oral tablet 300 mg, 1, tablet, By Mouth, Daily, # 30 tablet, Refills 0, Tot. Refills 0, Maintenance, 10/05/15 12:09:18 PM EDT, Print Requisition Start Date: 10/05/15 Status: Ordered Quantity: 30.0 Unit: tablet Repeat number: 1 amLODIPine 2.5 mg oral tablet 1 tablet = 2.5 mg, By Mouth, Daily, # 30 tablet, 0 Refills, Maintenance, 02/14/24 3:26:00 PM EST, Tablet, Partial fill upon patient request if the prescription is for a schedule II opioid drug. Start Date: 02/14/24 Status: Ordered Quantity: 30.0 Unit: tablet Repeat number: 1 apixaban 2.5 mg oral tablet = 2.5 mg, By Mouth, 2 times a day, Refill per PCP or Cardiology, # 60 tablet, 0 Refills, Maintenance, 02/17/24 2:24:00 PM EST, Tablet, [facility] 3, Partial fill upon patient request if the prescription is for a schedule II opioid drug., 180, cm, 02/17/24 12:23:00 EST, Height, 78, kg, 02/15/24 15:33:00 EST, Dry Weight Start Date: 02/17/24 Status: Ordered Quantity: 60.0 Unit: tablet Repeat number: 1 aspirin 81 mg oral delayed release tablet 81 mg, By Mouth, Daily, Refill per PCP or Cardiology, # 30 tablet, Refills 0, Tot. Refills 0, Maintenance, 02/17/24 2:25:00 PM EST, Route to Pharmacy Electronically, [facility] 3, Partialfill upon patient request if the prescription is for a schedule II opioid drug., 180, cm, 02/17/24 12:23:00 EST, Height, 78, kg, 02/15/24 15:33:00 EST, Dry Weight Start Date: 02/17/24 Status: Ordered Quantity: 30.0 Unit: tablet Repeat number: 1 atorvastatin 80 mg oral tablet = 80 mg, By Mouth, Daily at bedtime, # 90 tablet, 3 Refills, Maintenance, 01/13/19 12:13:26 PM EDT,Tablet, [facility]/pharmacy #[id number] Start Date: 01/13/19 Status: Ordered Quantity: 90.0 Unit: tablet Repeat number: 4 bumetanide 1 mg oral tablet 1 mg, 1, tablet, By Mouth, 2 times a day, 2 tablets in am, 1 tablet in pm, # 60 tablet, Refills 0, Tot. Refills 0, Maintenance, 03/06/19 12:43:46 PM EST, Route to Pharmacy Electronically, [facility], 180, cm, 03/06/19 8:36:31 EST, Height, 86.3, kg, 02/28/19 14:16:32 EST, Dry Weight Start Date: 03/06/19 Status: Ordered Quantity: 60.0 Unit: tablet Repeat number: 1 calcitriol 0.25 mcg oral capsule 45 each, 0 Refill(s), TAKE 1 CAPSULE BY MOUTH EVERY OTHER DAY, 0 Refills, 07/01/23 1:59:00 PM EDT, Partial fill upon patient request if the prescription is for a schedule II opioid drug. Start Date: 07/01/23 Status: Ordered Repeat number: 1 finasteride 5 mg oral tablet 1 tablet = 5 mg, By Mouth, Daily, # 30 tablet, 0 Refills, Maintenance, 08/25/18 8:44:18 PM EDT, Tablet Start Date: 08/25/18 Status: Ordered Quantity: 30.0 Unit: tablet Repeat number: 1 Metoprolol Succinate ER 50 mg oral tablet, extended release 100 mg, 2, tablet, By Mouth, Daily, TAKE 2 TABLETS BY MOUTH EVERY DAY Start Date: 02/14/24 Status: Ordered Repeat number: 1 Tylenol Extra Strength 500 mg oral tablet 2 tablet = 1,000 mg, By Mouth, PRN for pain, before bed, Maintenance, 12/13/18 8:56:27 PM EDT, Tablet Start Date: 12/13/18 Status: Ordered Repeat number: 1 Vyndamax 61 mg oral capsule 1 capsule = 61 mg, By Mouth, Daily, swallow whole, # 10 capsule, 0 Refills, Maintenance, 10/26/19 12:12:00 PM EDT, Capsule, [facility], 180, cm, 10/26/19 11:22:00 EDT, Height, 72, kg, 10/18/19 12:27:00 EDT, Dry Weight Start Date: 10/26/19 Stop Date: 11/05/19 Status: Ordered Quantity: 10.0 Unit: capsule Repeat number: 1 Problem List Condition Confirmation Course Effective Dates Status H ealth Status Informant Amyloidosis Confirmed Active Thoracic aortic aneurysm Confirmed Active Atrial flutter Confirmed Active MSSA bacteremia Confirmed Active Bicuspid aortic valve Confirmed Active Olecranon bursitis, left elbow Confirmed Active CAD - Coronary artery disease Confirmed Active Cardiac device in situ Confirmed Active Cardiomyopathy Confirmed Active CKD stage 3 Confirmed Active Gout Confirmed Active History of BPH Confirmed Active HFrEF - heart failure with reduced ejection fraction Confirmed Active Hyperlipidemia Confirmed Active Hypertension Confirmed Active Interstitial lung disease Confirmed Active PVD - peripheral vascular disease Confirmed Active Renal artery stenosis Confirmed Active Spinal stenosis Confirmed Active Social History Social History Type Response Smoking Status Never smoker entered on: 11/03/16 Sex Sex Representation Male (finding) Cardiology * Event Display: Non Cardiovascular Results Authored Date: Cardiology Consult note * Event Display: Consult Note Cardiology Authored Date: Patient Care team information Care Team Personnel Name: Li Luke RN Position: [facility] RN Member Role: Primary Care Nurse Name: Tarcie Eaton Position: [facility] SAMMIE Office Staff Member Role: Lifetime Consulting Physician Name: Emanuel Cobos RN Position: [facility] RN Member Role: Primary Care Nurse Name: Inocencia Burnette RN Position: [facility] AMB Nurse Member Role: Primary Care Nurse Name: Sarahi Patterson RN Position: [facility] RN Member Role: Primary Care Nurse Name: Mayra Calvillo MD Position: [facility] Physician - Primary Care Member Role: PCP Address: [address] [place] [address]- Telecom: Name: Rosangela Georges NP Position: [facility] Associate Professional Member Role: Primary Care Nurse Name: Haritha Singh RN Position: [facility] RN Member Role: Primary Care Nurse Name: Clarice Bower RN Position: [facility] RN Member Role: Primary Care Nurse Name: Radha Linn RN Position: [facility] RN Member Role: Primary Care Nurse Name: Dania Koch RN Position: [facility] RN Member Role: Primary Care Nurse Name: Matti Grove RN Position: [facility] Outreach Member Role: Primary Care Nurse Name: Krys Bae RN Position: [facility] OB RN Member Role: Primary Care Nurse Name: Rafael Mccurdy RN Position: [facility] ED RN W/OE and Tasks Member Role: Primary Care Nurse Name: Chasity Kumar RN Position: [facility] RN Member Role: Primary Care Nurse Name: Jesusita Valentine RN Position: [facility] RN Member Role: Primary Care Nurse Name: Divina Grijalva RN Position: [facility] ED RN W/OE and Tasks Member Role: Primary Care Nurse Name: Erica Gayle RN Position: [facility] Event Marketing Manager Member Role: Primary Care Nurse Name: Calli Funk RN Position: [facility] SN RN Member Role: Primary Care Nurse Name: Ariadne Paul RN Position: [facility] RN Member Role: Primary Care Nurse Name: Román Rey RN Position: [facility] ED RN W/OE and Tasks Member Role: Primary Care Nurse Name: Anitha Shields RN Position: [facility] RN Member Role: Primary Care Nurse Name: Estefanía Miranda RN Position: [facility] Event Marketing Manager Member Role: Primary Care Nurse Care Team Related Persons Name: RODOLFOVIN Name: SELAM REYNOLDS Insurance Providers Guarantor name: KEVIN REYNOLDS Health Plan Information #: 1 Payer: MEDICARE PART B OUTPT Member Number: NA Policy Number: NA Group Number: NA Health Plan Information #: 2 Payer: MEDEX Member Number: NA Policy Number: NA Group Number: NA
--- OUTSIDE RECORDS SUMMARY | 2024-03-03 13:16 | XMS_ITS | Continuity of Care Document ---
Author Organization [facility] Address [address] [place] [id number]- Care Team Providers Care Discharge Door Operator Name Role Phone Mayra Calvillo MD [id number] - 02[facility]02/24 [facility] [address] [place] [id number] Attending Physician: Arin Chaudhary NP Admitting Physician: Arin Chaudhary NP Referring Physician: Mayra Calvillo MD Encounter Type: Office Visit Allergies, Adverse Reactions, Alerts No Known Medication [...] Quantity: 30.0 Unit: tablet Repeat number: 1 aspirin 81 mg oral delayed release tablet 81 mg, 1, tablet, By Mouth, Daily, # 30 tablet, Refills 0, Maintenance, 11/15/18 11:15:05 AM EDT Start Date: 11/15/18 Status: Ordered Quantity: 30.0 Unit: tablet Repeat number: 1 atorvastatin 80 mg oral tablet = 80 mg, By Mouth, Daily at bedtime, # 90 tablet, 3 Refills, Maintenance, 01/13/19 12:13:26 PM EDT,Tablet, [facility]/pharmacy #[id number] Start Date: 01/13/19 Status: Ordered Quantity: 90.0 Unit: tablet Repeat number: 4 bumetanide 1 mg oral tablet 1 mg, 1, tablet, By Mouth, 2 times a day, # 60 tablet, Refills 0, Tot. Refills 0, Maintenance, 03/06/19 12:43:46 PM EST, Route to Pharmacy Electronically, [facility], 180, cm, 03/06/19 8:36:31 EST, Height, [...] Date: 07/01/23 Status: Ordered Repeat number: 1 clopidogrel 75 mg oral tablet 90 each, 0 Refill(s), TAKE 1 TABLET BY MOUTH EVERY DAY, Refills 0, 07/01/23 1:59:00 PM EDT, Partial fill upon patient request if the prescription is for a schedule II opioid drug. Start Date: 07/01/23 Status: Ordered Repeat number: 1 finasteride 5 mg oral tablet 1 tablet = 5 mg, By Mouth, Daily, # 30 tablet, 0 Refills, Maintenance, 08/25/18 8:44:18 PM EDT, Tablet Start Date: 08/25/18 Status: Ordered Quantity: 30.0 Unit: tablet Repeat number: 1 Insulin Aspart-Insulin Aspart Protamine FlexPen 30 units-70 units/mL subcutaneous suspension 0 Refill(s), 0 Refills, 07/01/23 1:59:00 PM EDT, Partial fill upon patient request if the prescription is for a schedule II opioid drug. Start Date: 07/01/23 Status: Ordered Repeat number: 1 lisinopril 5 mg oral tablet 5 mg, 1, tablet, By Mouth, Daily, # 90 tablet, Refills 0, Maintenance, 02/06/22 11:17:00 AM EST, Partial fill upon patient request if the prescription is for a schedule II opioid drug. Start Date: 02/06/22 Status: Ordered Quantity: 90.0 Unit: tablet Repeat number: 1 metoprolol 100 mg oral tablet 1 Unknown, Oral, 0 Refill(s), Take 1 tablet by mouth 1 (one) time each day, Refills 0, 07/01/23 1:59:00 PM EDT, Partial fill upon patient request if the prescription is for a schedule II opioid drug. Start Date: 07/01/23 Status: Ordered Repeat number: 1 metoprolol tartrate 75 mg oral tablet 1 tablet = 75 mg, By Mouth, Daily, 0 Refills, Maintenance, 12/25/19 3:32:00 PM EDT Start Date: 12/25/19 Status: Ordered Repeat number: 1 Rocaltrol 0.25 mcg oral capsule 0.25 Unknown, Oral, 3 Refill(s), Take 1 capsule (0.25 mcg total) by mouth every other day, 0 Refills, 03/29/23 7:00:00 PM EST, Partial fill upon patient request if the prescription is for a schedule IIopioid drug. Start Date: 03/29/23 Status: Ordered Repeat number: 1 Tylenol Extra [...] Refills, Maintenance, 10/26/19 12:12:00 PM EDT, Capsule, [facility], 180, cm, 10/26/19 11:22:00 EDT, [...] Active Olecranon bursitis, left elbow Confirmed Active Cardiac device in situ Confirmed Active Gout Confirmed Active History of BPH Confirmed Active Hyperlipidemia Confirmed Active Hypertension Confirmed Active Interstitial lung disease Confirmed Active Spinal stenosis Confirmed Active Vital Signs Most recent to oldest [Reference Range]: 1 Height 180 cm (01/26/24 7:33 AM) Weight 77.58 kg (01/26/24 7:33 AM) Oxygen Saturation [94-100 %] 96 % (01/26/24 7:33 AM) Pulse Rate [55-90 bpm] 85 bpm (01/26/24 7:33 AM) Body Mass Index [18.5-24.99 kg/m2] 23.94 kg/m2 (01/26/24 7:33 AM) Blood Pressure [90-138/55-84 mm Hg] 150/ 62mm Hg *H* (01/26/24 7:33 AM) Blood pressure sites Arm, left (01/26/24 7:33 AM) Weight Obtained Via Patient/family state d (01/26/24 7:33 AM) Social History Social History Type Response Smoking Status Never smoker entered on: 11/03/16 Sex Sex Representation Male (finding) Note * Marvin Delgadillo: PERFORM Event Display: Patient Education/Instruction Authored Date: [id number] Ambulatory Adult Visit Summary [facility] [address] [facility] [address] [place] [address] Name: KEVIN REYNOLDS : 1940?? Visit: 01/26/2024 07:04?? Ambulatory Visit Instructions ?? Your Care Team Primary Care Provider Mayra Calvillo MD? This Visit Provider Jet BRUNO , Arin Diggs Vitals Signs Pulse Rate: 85 bpm Height: 180 cm Systolic Blood Pressure:??150 mm Hg??High Weight: 77.58 kg Diastolic Blood Pressure: 62 mm Hg Body Mass Index: 23.94 kg/m2 Oxygen Saturation: 96 % Body surface area: 1.97 Medications The list below reflects the information in our records and provided by you today along with any changes made during this visit. Please continue your medications until treatment is completed or stopped by your provider. If this is different from the information you have or there are other questions,please contact the prescribing provider. What How Much When Instructions Unchanged Acetaminophen (Tylenol Extra Strength 500 mg oral tablet) 2 tab(s) Oral As needed for for pain before bed ?? Unchanged Albuterol (albuterol 0.083% inhalation solution) 3 Milliliter Nebulized inhalation Every 6 hours Unchanged Albuterol (albuterol CFC free 90 mcg/ inh inhalation aerosol) 2 puff(s) Inhalation 4 times a day as needed for for wheezing Unchanged Allopurinol (allopurinol 300 mg oral tablet) 1 tab(s) Oral Daily Unchanged Aspirin (aspirin 81 mg oral delayed release tablet) 1 tab(s) Oral Daily Unchanged Atorvastatin (atorvastatin 80 mg oral tablet) 80 Milligram Oral Daily at Bedtime Unchanged Bumetanide (bumetanide 1 mg oral tablet) 1 tab(s) Oral Twice a day Unchanged Calcitriol (calcitriol 0.25 mcg oral capsule) 45 each, 0 Refill(s), TAKE 1 CAPSULE BY MOUTH EVERY OTHER DAY ?? Unchanged Calcitriol (Rocaltrol 0.25 mcg oral capsule) 0.25 Unknown, Oral, 3 Refill(s), Take 1 capsule (0.25 mcg total) by mouth every other day ?? Unchanged Clopidogrel (clopidogrel 75 mg oral tablet) 90 each, 0 Refill(s), TAKE 1 TABLET BY MOUTH EVERY DAY ?? Unchanged Finasteride (finasteride 5 mg oral tablet) 1 tab(s) Oral Daily Unchanged Insulin Aspart-Insulin Aspart Protamine (Insulin Aspart-Insulin Aspart Protamine FlexPen 30 units-70 units/ mL subcutaneous suspension) 0 Refill(s) ?? Unchanged Lisinopril (lisinopril 5 mg oral tablet) 1 tab(s) Oral Daily Unchanged Metoprolol (metoprolol 100 mg oral tablet) 1 Unknown, Oral, 0 Refill(s), Take 1 tablet by mouth 1 (one) time each day ?? Unchanged Metoprolol (metoprolol tartrate 75 mg oral tablet) 1 tab(s) Oral Daily Unchanged tafamidis (Vyndamax 61 mg oral capsule) 1 capsule Oral Daily Duration: 10 Days swallow whole ?? Medications and Immunizations Administered Medications Given During Visit No medications given during this visit.?? Allergies (NKA means No Known Allergies) No Known Medication Allergies Other Environmental Allergy Common Emergency Awareness Tips IS IT A STROKE? Act FAST and Check for these signs: FACE Does the face look uneven? ARM Does one arm drift down? SPEECH Does their speech sound strange? TIME Call at any sign of stroke ?? Heart Attack Signs Chest discomfort: Most heart attacks involve discomfort in the center of the chest and lasts more than a few minutes, or goes away and comes back. It can feel like uncomfortable pressure, squeezing, fullness or pain. Discomfort in upper body: Symptoms can include pain or discomfort in one or both arms, back, neck, jaw or stomach. Shortness of breath: With or without discomfort. Other signs: Breaking out in a cold sweat, nausea, or lightheaded. Remember, MINUTES DO MATTER. If you experience any of these heart attack warning signs, call to get immediate medical attention! ?? Smoking can increase your chances of developing chronic health problems and can cause harmful effects to other family members in your house. If you smoke, you are strongly encouraged to quit. Please call [facility] Link at [phone] or [phone] ([phone]) or log in to [email or web address] for referrals to smoking cessation programs. ?? The National Suicide Prevention Hotline is available 13/10 if you or someone you know needs to find a reason to keep living. By calling 0-887-631-[employer] (9319) you'll be connected to a skilled, trained counselor at a crisis center in your area. [facility] You can view and manage your care through the patient portal or by using a health care steve of your choosing. [employer] is a website that allows you to securely view your medical information including your hospital discharge summary, office visit summaries, medications and follow-up visits. You can also request appointments, renew medications, and request access to your medical information using a health care steve of your choosing, or just ask a question. You can enroll at [email or web address] or register during your next office visit. [facility], in keeping with [facility] guidance, no longer requires face masks for staff, patientsor visitors in most situations. Similiar to time spent indoors at other locations, there is the chance that you were exposed to repiratory viruses during your time with us (such as flu or COVID-19). If you develop symptoms concerning for a viral respiratory infection, please seek testing (and treatment if indicated) from your medical provider or home test kit. ?? Disclaimer: The information provided is of a general nature and is intended to be used in conjunction with the recommendations and advice of your health care practitioner. Every effort has been made to ensure that the information provided is accurate and complete at the time it is provided to you however, as your needs change, or, as new information becomes available, different or additional instructions may be required. ?? If you have questions, please consult with your primary care provider or pharmacist, as appropriate. This information is not intended to serve as substitution for assessment and evaluation by a qualified health care provider. If you do not have a primary care provider, you may find a [facility] provider by calling [facility] Link at [phone]. Patient Care team information Care Team Personnel Name: Tracie Eaton Position: [facility] SAMMIE Office Staff Member Role: Lifetime Consulting Physician Name: Emanuel Cobos RN Position: [facility] RN Member Role: Primary Care Nurse Name: Inocencia Burnette RN Position: [facility] AMB Nurse Member Role: Primary Care Nurse Name: Sarahi Patterson RN Position: [facility] RN Member Role: Primary Care Nurse Name: Mayra Calvillo MD Position: [facility] Physician - Primary Care Member Role: PCP Address: [address] [place], [place] [address] Telecom: Name: Rosangela Georges NP Position: [facility] Associate Professional Member Role: Primary Care Nurse Name: Haritha Singh RN Position: [facility] RN Member Role: Primary Care Nurse Name: Clarice Boewr RN Position: [facility] RN Member Role: Primary Care Nurse Name: Radha Linn RN Position: [facility] RN Member Role: Primary Care Nurse Name: Dania Koch RN Position: [facility] RN Member Role: Primary Care Nurse Name: Matti Grove RN Position: [facility] Outreach Member Role: Primary Care Nurse Name: Krys Bae RN Position: [facility] OB RN Member Role: Primary Care Nurse Name: Rafael Mccurdy RN Position: [facility] ED RN W/OE and Tasks Member Role: Primary Care Nurse Name: Stacy RNChasity Position: [facility] RN Member Role: Primary Care Nurse Name: Jesusita Valentine RN Position: [facility] RN Member Role: Primary Care Nurse Name: Divina Grijalva RN Position: [facility] ED RN W/OE and Tasks Member Role: Primary Care Nurse Name: Erica Gayle RN Position: [facility] Housekeeper Supervisor Member Role: Primary Care Nurse Name: Calli Funk RN Position: [facility] SN RN Member Role: Primary Care Nurse Name: Román Rey RN Position: [facility] ED RN W/OE and Tasks Member Role: Primary Care Nurse Name: Anitha Shields RN Position: [facility] RN Member Role: Primary Care Nurse Name: Estefanía Miranda RN Position: [facility] Housekeeper Supervisor Member Role: Primary Care Nurse Care Team Related Persons Name: VIN REYNOLDS Name: SELAM REYNOLDS
--- OUTSIDE RECORDS SUMMARY | 2024-03-03 13:16 | XMS_ITS | Data Portability ---
Author Organization [place] [facility] [place], Main Office Address [address] [facility] [address] [place] [address] Care Team Providers Care Slot Floorman Name Role Phone KARINA TRACY Primary Care Provider Assessment Encounter Date Assessment Date Assessment LastModified by Organization Details LastModified Time 07/12/2018 07/12/2018 I have reconciled the patient's medications post their discharge from inpatient facility. [email or web address] Not available 07/12/2018 10:17:18 07/14/2018 07/14/2018 1. 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 Blood tests for ANCA, SCOTT, anti-GBM, lupus were all negative. C-reactive protein initial test was elevated but after steroids it decrease to less than 0.29 only positive tests is rheumatoid factor. He is going back to [place] in 2 weeks. He needs to be followed up by rheumatology because of above diagnosis possibly secondary to vasculitis. He was advised to decrease prednisone to 35 mg ? 1 week and then decrease to 30 mg daily until seen by rheumatology in [place]. He was told to bring a copy of his chest x-ray and CAT scan of the chest in CD form to his physician [place]. He can get copies of vasculitis workup with the medical records but I documented above negative and positive testing as stated above. 2. Hypoxemia? improving. I ambulated the patient and O2 saturation lobe as was 93%. He will need a portable concentrator to use when he flies to [place]. He did had episode of 88% 1 morning as per patient 3. Chronic atrial fibrillation? on Coumadin 4. Dyspnea? improving Patient was advised to see me when he returns to [place] in Winter [email or web address] Not available 07/15/2018 05:53:29 Plan of Treatment Reminders Order Date Submit Date Provider Last Modified By Organization Details Last Modified Time Details Appointments None recorded. Lab None recorded. Referral orthopedic referral 2017 018 esdras London MD ([facility]), [address] [facility], [address], [address], 8 08:06:57 coumadin clinic referral 2018 019 [email or web address] Not available 0 15:56:50 Procedures None recorded. Surgeries None recorded. Imaging XR, knee 2017 018 ANA In-Office Order, Internal Use Only DO Not Attach Compendium DO Not Attach Compendium, Do Not Delete/merge, [id number] 8 17:14:51 Medication Orders Lantus Solostar U-100 Insulin 100 unit/mL (3 mL) subcutaneo us pen 2018 019 INTERFACE [id number], [address], [place], [address], 9 10:25:09 Patient TargetsNo targets recorded. Patient Instructions Encounter Date Encounter Id Patient Instructions Last Modified By Organization Details Last Modified Time 06/03/2017 [id number] The patient's condition was explained and discussed. The nonsurgical options were explained. The surgical option were also addressed including perioperative preparation, postoperative care and potential complications. the patient was instructed to consider surgery as an option at this time because the nonsurgical modalities have been tried and the patient's condition does warrant surgical intervention [email or web address] Not available 06/03/2017 09:13:22 He complains of pain in the medial joint line in both knees. The left side is a little worse today, but both knees are considerably uncomfortable. His diagnosis is osteoarthritis of bilateral knees, medial joint line narrowing. After appropriate consent was obtained from the patient an injection of cortisone and Xylocaine was given. There was careful preparation of the skin with alcohol. Adverse reactions were discussed with the patient and it was recommended icing be performed on the night of the injection. Activity level was discussed with patient. All limitations and mobility were reviewed with the patient. Precautions including limitations on lifting, elevation and driving were discussed. Anti-inflammatory medications were prescribed for this patient. The use of the medication and the proper dosage was discussed. Side effects which may include but not exclusive to gastrointestinal distress and bleeding were explained and the patient was instructed to stop the medication immediately. In addition there medications were reviewed to avoid any interactions. [email or web address] Not available 06/04/2017 11:12:48 07/12/2018 [id number] type 2 diabetes: care instructions Not available 07/12/2018 12:44:37 Please review yo ur medication list of your summary of care from this visit and if any differences from what you are currently taking at home please call us to discuss. Not available 07/12/2018 10:17:18 Homebound Status : {{Patient has an inability to leave the home without a taxing effort and assistance from another person Does not meet homebound status*}} Required Home Health Services : {{none* group home, physical therapy, occupational therapy group home, physical therapy group home}} . Durable Medical Equipment needed : {{none cane walker w alker with seat manual wheelchair* bedside commode oxygen}} {{cane walker walker with seat manual wheelchair bedside commode oxygen*}} {{cane walker walker with seat manual wheelchair bedside commode oxygen}} Possible Billing Options based on supporting documentation from your encounter: E&M Code 29923 - 30708 or 14392 - 33368? Office Visit Hospital Follow-Up CPT Code 15739 - Transitional Care Management services with moderate medical decision complexity (rcmh-yn-ikhi visit within 14 days of discharge).* CPT Code 58133 - Transitional Care Management services with high medical decision complexity (jebt-jd-ltes visit within 7 days of discharge). * * See TCM [employer] education packet for criteria: [email or web address]/[email or web address] x [email or web address] Not available 07/12/2018 12:44:36 07/26/2018 [id number] high blood press ure: care instructions [email or web address] Not available 07/26/2018 10:48:22 learning about h igh blood pressure [email or web address] Not available 07/26/2018 10:48:22 atrial fibrillat ion: care instructions [email or web address] Not available 07/26/2018 10:48:22 type 2 diabetes: care instructions Not available 07/26/2018 10:25:08 Reason for Referral Orthopedic Referral for Pain in left knee Referring Physician: Shannan Love, Family Medicine, Encounter Date: 05/25/2017 Referring Physician: Oscar Caruso, Family Medicine, Encounter Date: 07/12/2018 Results Created Date Observation Date Name Description Value Unit Range Abnormal Flag Note LastModifiedBy Organization Detail LastModifiedTime 06/28/19 19 06/27/2018 lab add on order test requsted to add on crp Not Available Physic [address], [address], 06/27/2018 12:22:10 06/28/19 19 06/27/2018 lab add on order lab disposition Test Added Not Available Physicians [address], [address], 06/27/2018 12:22:10 06/28/19 19 06/27/2018 lab add on order disposition of request The test has been added to [facility] er acces rajat for testi ng. No [facility] er actio n requi red. Not Available Physicians [address], [address], 06/27/2018 12:22:10 06/28/19 19 06/27/2018 lab add on order test requsted to add on ESR Not Available Physic [address], [address], 06/27/2018 14:51:09 06/28/19 19 06/27/2018 lab add on order lab disposition Test Added Not Available Physicians [address], [address], 06/27/2018 14:51:09 06/28/19 19 06/27/2018 lab add on order disposition of request The test has been added to [facility] acces rajat for testi ng. No fur er actio n requi red. Not Available Physicians [address], [address], 06/27/2018 14:51:09 06/28/19 19 06/27/2018 lab add on order test requsted to add on procal citoni n Not Available Physicians [address], [address], 06/27/2018 14:52:11 06/28/19 19 06/27/2018 lab add on order lab disposition Test Added Not Available Physicians [address], [address], 06/27/2018 14:52:11 06/28/19 19 06/27/2018 lab add on order disposition of request The test has been added to [facility] ng. [facility] Not Available Physicians [address], [address], 06/27/2018 14:52:11 07/15/19 19 07/14/2018 xr chest [address] Physic ians [facility] Collie r Patien t: KEVIN RODRÍGUEZ [id number]:[id number] : [birth year] 37 Sex: Male Locati on: [facility] RAD Orderi ng Physic fabian: IBRAHIMA AMIN DO, MD Diagno stic Radiol ogy ACCESS ION EXAM DATE/T ROULA 520-19 -114-0 0596 16:26 EDT Reason For Exam pneumo anshu Report PROCED URE: XR Chest, 2 Views EXAM DATE/T ROULA: 4:13 PM CLINIC AL INDICA TION: 78 years old, male; Condit ion or diseas e; Additi onal info: Pneumo anshu TECHNI QUE: Imagin g protoc ol: XR of the chest, 2 views. COMPAR AGUILA: CR (Chest pa, CHEST, ) 11:33 AM DISCUS RAJAT: Lungs: Patchy scatte red parenc hymal opacit ies are again seen throug hout the lungs. Findin gs may repres ent acute atypic al pneumo anshu versus chroni c inflam matory change s. Pleura l space: No pleura l effusi on or pneumo thorax . Heart/ Medias tinum: No cardio megaly . Bones/ joints : No acute findin gs. IMPRES RAJAT: Patchy scatte red parenc hymal opacit ies are again seen throug hout the lungs. Findin gs may repres ent acute atypic al pneumo anshu versus chroni c inflam matory change s. Rock Hays MD On 2018 16:30: 26; -NPR [id number] Final Signed by: ROCK HAYS MD Signed (Elect ronic Signat ure): 2018 04:30 pm EDT [email or web address] [facility] [address] [place], [address], 07/21/2018 09:57:45 Result Notes None recorded. Problems Name Problem SNOMED Code Status Onset Date Resolution Date Notes Provider Name and Address Organization Details Recorded Time Hypertensive disorder 96254294 Active 2017 Temi Shine, MARKETING BUSINESS ANALYST null, [address] 8 14:38:39 Hyperlipidemia 49047240 Active 2017 Temi Shine, MARKETING BUSINESS ANALYST null, [address] 8 14:38:45 Gout 49238653 Active 2017 Temi Shine, MARKETING BUSINESS ANALYST null, [address] 8 14:38:50 Atrial fibrillation 41199821 Active 2017 Temi Shine, MARKETING BUSINESS ANALYST null, [address] 8 14:38:57 Notes:Some problems listed i n Document: #[id number] could not be added to this patient's chart. Please review this document and add these problems to the patient's chart manually as needed. Problem Notes None recorded. Procedures Surgical History Date Name Laterality Status Provider Name and Address Organization Details Recorded Time 07/13/19 19 Transitional_Ca re_Management completed Funmi Braxton CMA [address] 07/12/2018 10:17:19 06/04/19 18 Cortisone Injection (Knee) 80 MG completed Claudia Marin Asst Cert [address] 06/03/2017 09:13:28 03/23/19 01 Endometrial Ablation completed Temi Laws LPN [place] [facility] [place] 05/25/2017 14:42:53 03/23/18 71 Ankle arthroscopy/sanjuana ursula completed Temi Laws LPN [place] - [facility] [place] 05/25/2017 14:41:36 Ankle arthroscopy/sanjuana ursula completed Temi Laws, MARKETING BUSINESS ANALYST [place] [facility] [place] 05/25/2017 14:41:53 Imaging Results Imaging Date Name Status [facility]Modified [facility] Details LastModified Time 07/14/2018 xr chest 2 V completed [email or web address] [facility] [address] [place], [address], 07/21/2018 09:57:45 Procedure Notes None recorded. Medical Equipment None Reported. Allergies No known drug allergies Medications Name Sig Start Date Stop Date Status Note LastModified by Organization Details LastModified Time amoxicillin 500 mg capsule TAKE 4 CAPSULES ONCE 07/12 completed Not Available Not Available Not Available azithromyci n 250 mg tablet 07/14 completed Not Available Not Available Not Available sucralfate 1 gram tablet 07/26 completed Not Available Not Available Not Available prednisone 20 mg tablet Take 1 tablet twice a day by oral route. active Not Available Not Available No t Available alclometaso ne 0.05 % topical cream APPLY TOPICALLY TO THE AFFECTED AREA TWICE A DAY NEEDED active Not Available Not Available No t Available Lantus U-100 Insulin 100 unit/mL subcutaneou s solution 10 UNIT(S) SUBCUTANE OUS DAILY AT BEDTIME,I NSTR:DOSE TO BE ADJUSTED BY PCP DEPENDING ON PREDNISON E active Not Available Not Available No t Available famotidine 20 mg tablet active Not Available Not Available Not Available pravastatin 80 mg tablet active Not Available Not Available Not Available amlodipine 10 mg tablet TAKE 1 TABLET BY MOUTH EVERY DAY active Not Available Not Available No t Available benzonatate 100 mg capsule TAKE 2 CAPSULES BY MOUTH EVERY 8 HOURS NEEDED FOR COUGH active Not Available Not Available No t Available warfarin 5 mg tablet active Not Available Not Available No t Available enoxaparin 150 mg/mL subcutaneou s syringe active Not Available Not Available No t Available allopurinol 300 mg tablet TAKE 1 TABLET BY MOUTH EVERY DAY active Not Available Not Available No t Available furosemide 20 mg tablet active Not Available Not Available Not Available albuterol sulfate HFA 90 mcg/actuati on aerosol inhaler INHALE 2 PUFFS EVERY 6 HOURS NEEDED FOR WHEEZING active Not Available Not Available No t Available lisinopril 40 mg tablet TAKE 1 TABLET BY MOUTH EVERY DAY active Not Available Not Available No t Available finasteride 5 mg tablet active Not Available Not Available Not Available olmesartan 40 mg tablet 07/26 completed Not Available Not Available Not Available insulin aspar prot-insuli n aspart 100 unit/mL (70-30) subcutaneou s pen Inject 10 units 3 times a day by subcutane ous route. active Not Available Not Available No t Available BD Ultra-Fine Mini Pen Needle 31 gauge x 3/16 TEST SUGAR 3 TIMES A DAY active Not Available Not Available No t Available warfarin 07/14 completed Not Available Not Available Not Available Lantus Solostar U-100 Insulin 100 unit/mL (3 mL) subcutaneou s pen Inject 10 units every day by subcutane ous route. 2018 active Not Available Not Available Not Avai lable Eliquis 5 mg tablet Take 1 tablet twice a day by oral route. 07/12 completed Not Available Not Available Not Available BD Insulin Syringe Ultra-Fine 0.5 mL 31 gauge x 5/16 USE 3 TIMES A DAY DIRECTED active Not Available Not Available No t Available Levemir FlexTouch U-100 Insulin 100 unit/mL (3 mL) subcutaneou s pen INJECT 10 UNIT(S) EVERY DAY BY SUBCUTANE OUS ROUTE. active Not Available Not Available No t Available Shingrix (PF) 50 mcg/0.5 mL intramuscul ar suspension, kit active Not Available Not Available Not Available Fluad 2017- 65yr up(PF)45 mcg(15 mcgx3)/0.5 mL intramuscul ar syringe ADM 0.5ML IM UTD 07/26 completed Not Available Not Available Not Available Vitals Date Recorded Body weight Body mass index (BMI) Body height Body temperature Heart rate Respiratory rate Oxygen saturation Oxygen saturation in Arterial blood by Pulse oximetry Systolic blood pressure Diastolic blood pressure Provider Name and Address Organization Details Last Updated DateTime 8 40826.4 4 g 28.6 kg/m2 180.34 cm 97.7 [degF] 55 /min 16 /min 98 % 98 % 132 mm[Hg] 80 mm[Hg] Temi Shine, MARKETING BUSINESS ANALYST [facility] [place] 8 14:36:00 Date Recorded Body height Body mass index (BMI) Body weight Provider Name and Address Organization Details Last Updated DateTime 06/03/2017 180.34 cm 28.6 kg/m2 65429.44 g Manpreet Marie [facility] [place] 06/03/2017 08:57:33 Date Recorded Body weight Body mass index (BMI) Body height Body temperature Respiratory rate Heart rate Oxygen saturation Oxygen saturation in Arterial blood by Pulse oximetry Systolic blood pressure Diastolic blood pressure Provider Name and Address Organization Details Last Updated DateTime 9 15404.9 2 g 27.1 kg/m2 180.34 cm 98.5 [degF] 14 /min 70 /min 97 % 97 % 100 mm[Hg] 60 mm[Hg] Funmi Braxton [address] 9 10:25:02 Date Recorded Body height Body mass index (BMI) Body weight Heart rate Respiratory rate Oxygen saturation Oxygen saturation in Arterial blood by Pulse oximetry Systolic blood pressure Diastolic blood pressure Provider Name and Address Organization Details Last Updated DateTime 9 180.34 cm 27.2 kg/m2 86331.5 1 g 66 /min 14 /min 95 % 95 % 106 mm[Hg] 64 mm[Hg] Hortensia Steen LPN Clinic Office [address] 9 09:35:51 Date Recorded Body height Body mass index (BMI) Body weight Body temperature Respiratory rate Heart rate Oxygen saturation Oxygen saturation in Arterial blood by Pulse oximetry Systolic blood pressure Diastolic blood pressure Provider Name and Address Organization Details Last Updated DateTime 9 180.34 cm 26.5 kg/m2 85642.5 5 g 98 [degF] 14 /min 74 /min 97 % 97 % 80 mm[Hg] 60 mm[Hg] Funmi Braxton [address] 9 09:50:38 Social History Question Answer Notes LastModified by Organizat ion Details LastModified Time Tobacco Smoking Status Never Smoker Temi GonzalezBRYANT manzanares [facility], [address] 05/25/2017 14:41:08 What Is Your Level Of Alcohol Consumption? Occasional [email or web address] Information not available 06/03/2017 What Was The Date Of Your Most Recent Tobacco Screening? 07/26/2018 Information n ot available 10/15/2018 Sex: Unknown Functional Status None recorded. Mental Status None recorded. Family History Relationship Description Onset Age of this Age Resolved Age Notes LastModified by Organization Details LastModified Time Sister Diabetes mellitus 67 [email or web address] Not available 2017 14:39:58 Sister Diabetes mellitus 72 [email or web address] Not available 2017 14:40:20 Sister Diabetes mellitus 68 [email or web address] Not available 2017 14:40:33 Brother Diabetes mellitus 61 [email or web address] Not available 2017 14:41:01 Medical History Condition Response Coronary Artery Disease N Other N Anxiety/Depression N Gout Y Thyroid Disease N Atrial Fibrillation Y Kidney Stones N Hyperthyroidism N Blood clot/deep vein thrombosis N Mammograms N Colonoscopy N Sexually Transmitted Disease N Hypothyroidism N COPD N Blood Clots N Depression N UTI N Bipolar N Diverticulitis/Diverticulosis N No past medical history reported N Has Pacemaker N Deep Vein Thrombosis N Muscle, Joint, or Bone Problems N Arthritis N Hiatal hernia N bronchitis N Abnormal Pap Smear N Cancer N Stroke N Aortic Valve Disease N Alcohol abuse N Bladder or Kidney Problems N Dexa Scan N Aortic Aneurysm N Liver Disease N Arrhythmia N Dialysis N Tobacco Use N Kidney Disease N Osteoarthritis N urinary problems N Migraines N GI Problems N Anemia N Abdominal Pain N Ulcers N Heart Attack (MD) N Ovarian Cancer N Diabetes N Cardiomyopathy N Blood Transfusions N Seizures/Epilepsy N Immunizations N AIDS/HIV N Congestive Heart Failure (CHF) N Hyperlipidemia Y Chronic Pain N Dementia N CVA N Allergies N Asthma N GERD/Reflux N Hepatitis N Heart Disease N Pulmonary Embolism N Hypertension Y Osteoporosis N Chicken Pox N Weight Loss, excessive N Immunizations Vaccine Type Date Status Note Provider Nam e and Address Organization Details Recorded Time Influenza, high-dose, trivalent, PF 9 completed Funmi Braxton CMA [facility], [place] - [facility] [place] 07/26/2018 09:53:58 Influenza, split virus, quadrivalent, preservative 7 completed Not Available [facility] 04/23/2019 02:11:21 Past Encounters Encounter ID Performer Location Encounter Start Date Encounter Closed Date Diagnosis/Indication Diagnosis SNOMED-CT Code Diagnosis ICD10 Code [id number] [facility] [address] [place] [address] 05/25/2017 13:30:02 05/25/2017 15:34:01 Pain in left knee 1235718681 40935 M25.562 Anticoagulant therapy 18 6920379 Z79.01 [id number] VIANCA LONDON MD [address] [address] [place] [address] 06/03/2017 08:40:35 06/03/2017 09:14:57 Knee pain 06207487 M25.562 Patellofem oral osteoarthritis 620509972 M17.10 Osteoarthr itis of knee 170187589 M17.11 M17.12 [id number] Oscar Caruso MD [facility] PCP [address] [place] [address] 07/12/2018 09:59:25 07/12/2018 11:13:18 Transition of care 0693482689 105 Z75.8 Chronic at rial fibrillation 454442320 I48.2 Interstiti al lung disease 923504123 J84.9 Type 2 shobha betes mellitus without complication 105110187 E11.9 [id number] TANA RODRIGUEZ MD [facility] [address] [facility] [address] [place] [address] 07/14/2018 09:18:09 07/14/2018 12:19:02 Pulmonary hemorrhage 19111110 R04.89 Hypoxemia 381984084 R09. 02 Dyspnea on exertion 6084 5006 R06.09 Chronic at rial fibrillation 544566674 I48.2 [id number] Oscar Caruso MD [facility] PCP [address] [place] [address] 07/26/2018 09:27:44 07/26/2018 10:41:50 Type 2 diabetes mellitus without complication 162122979 E11.9 Atrial fibrillation 4943 6004 I48.91 Pulmonary hemorrhage 781 48647 R04.89 Essential hypertension 71568075 I10 Health Concerns Section Related Observation LastModified by Organization Detai ls LastModified Time None Recorded Concern Status LastModified by Organization Details LastModified Time None Recorded Advance Directives Directive None Recorded Payers Encounter Date Sequence Insurance Name Policy Number Policy Garcia Covered Member ID Garcia Member ID Guarantor Name 05/25/2017 1 [place] Kevin Garcia Marcos [id number] Kevin Marcos 05/25/2017 2 [place] [id number] Kevin Marcos [id number] Kevin Marcos 06/03/2017 1 [place] Kevin Garcia Marcos [id number] Kevin Marcos 06/03/2017 2 [place] [id number] Kevin Marcos [id number] Kevin Marcos 07/12/2018 1 [place] Kevin Garcia Marcos [id number] Kevin Marcos 07/12/2018 2 [place] [id number] Kevin Garcia Marcos [id number] Kevin Marcos 07/14/2018 1 [place] Kevin Garcia Marcos [id number] Kevin Marcos 07/14/2018 2 [place] [id number] Kevin Garcia Marcos [id number] Kevin Marcos 07/26/2018 1 [place] Kevin Garcia Marcos [id number] Kevin Marcos 07/26/2018 2 [place] [id number] Kevin Garcia Marcos [id number] Kevin Marcos Notes Date Note Type Note Provider Name and Address Organization Details Recorded Time 05/25/2017 text/html Patient is a ple asant 77 yo male who presents with left knee pain. States he has hx of issues with his knees and back home in [place] he receives corticosteroid injections and it significantly helps. States the past few weeks he has been very active and prior to the pain starting he went for a long walk. Has hx of gout, but states it doesn't feel like gout. Hx of atrial fibrillation on eliquis BID. SHANNAN LOVE, CHRIS [address], [place], [address], [facility] [place] 05/25/2017 15:25:43 06/03/2017 text/html Knee PainReporte d bypatient.Location:le ft; posterior; lateral Quality:aching; sharp Severity:moderate; average pain level 6/10 Timing:chronic Alleviating Factors:position change; heat; OTC medication Aggravating Factors:sitting; standing; twisting; bending/squatting Associated Symptoms:no weakness; no numbness; no tingling; no redness; no ecchymosis; no catching/locking; no buckling; no grinding; no instability; no radiation down leg; no drainage; no fever; no chills; no weight loss; no change in bowel/bladder habits;swelling;warmt h;popping/clicking Previous Surgery:none [facility] Previous PT:none Previous Injections:none Work Related:no Work Level:no; regular duty Sport Level:unrestricted; light VIANCA LONDON MD [address] [address], [place], [address], [address] 06/10/2017 07:33:08 07/12/2018 text/html patient here for the first time for hospital follow up he was admitted on 06/27/18 because of sob and cough , and lung infiltrates treated as a pneumonia with antibiotics , them he started complaining of increasing sob and bloody sputum , and ct scan and bronchoscopy shows hemorrhagic fluid accumulation on both lungs , bronchoscopy with biopsy and anca ab ordered and still pending results , started in high dosis of steroids and patient improved over the course of hospitalization , also hx of atrial fibrillation , was using eliquis and it was placed on hold because of the lung bleeding and them replaced by coumadin.Rheumatologi st was consulted because of persistent headache and sed rate more than 100, temporal artery biopsy done and negative for temporal arteritis . patient discharge home on 07/09/18 on stable condition and has been filling well since the discharge , sob has improved , today o2 sat is 97% on room air , no cough reported , no chest pain or palpitations reported . his blood sugars has been running very high since he was in the hospital possible because he was using steroids , but was discharge in insulin 70/30 bid , and today hba1c 7.7, no hypoglycemic episodes reported . Oscar Caruso MD [address] [place], [phone], [address] 07/12/2018 12:45:12 07/14/2018 text/html Patient is an 78-year-old white male who was seen at the hospital who was initially diagnosed to have pneumonia but eventually was diagnosed to have pulmonary alveolar hemorrhage. His CAT scan showed groundglass patchy infiltrates. He was having hemoptysis. He was hypoxic. Bronchoscopy with lavage showed increasing hemorrhagic fluid? 3 sample bottles was taken. Prussian blue staining was positive for hemosiderin laden macrophageHe was discharged on oxygen and has been doing well. He is monitoring his oxygen saturation and is above 90% on room air. He said it did drop to 88% 1 morning. He was discharged on tenderness on after receiving high-dose steroids which also complicated his diabetes. He is currently on prednisone 40 mg daily.patient denies having any hemoptysis, no cough, he does have shortness of breath on exertion but this is improving. No fever or chills or any chest pain TANA RODRIGUEZ MD [address] [place] [address], [phone], [facility] [place] 07/15/2018 05:55:52 07/26/2018 text/html patient here tod ay for follow up in his atrial fibrillation rate controlled and in coumadin last inr 3.1 , he was seen by medical sales last week , results of the SCOTT , ANCA , and anti GBM ab negatives , patient filling much better , no sob , better exercises tolerance , good O2 sat , Diabetes mellitus controlled with normal blood sugar values , [place] and will follow upo with his pcp up there . Oscar Caruso MD [address] [place] [address], [phone], [facility] [place] 07/26/2018 10:48:41
--- OUTSIDE RECORDS SUMMARY | 2024-03-03 13:16 | XMS_ITS | Continuity of Care Document ---
Author Organization [facility] ter Address [address] [place] [id number] Care Team Providers Care Log Data Technician Name Role Phone Mayra Calvillo MD Primary Care Physician Encounter [facility] [id number] Date(s): 02/14/24 - 02/17/[address] [address]- Discharge Disposition: A-D/C Home Attending Physician: Michael Yeung MD Admitting Physician: Nuno Shaw MD Referring Physician: Not on Staff, Referring MD Encounter Type: Disch IP Allergies, Adverse Reactions, Alerts No Known Medication [...] Refills, Maintenance, 02/17/24 2:24:00 PM EST, Tablet, [facility] 3, Partial fill upon patient request [...] 2:25:00 PM EST, Route to Pharmacy Electronically, [facility] 3, Partialfill upon patient request if [...] 3 Refills, Maintenance, 01/13/19 12:13:26 PM EDT,Tablet, [facility]/pharmacy #[id number] Start Date: 01/13/19 Status: Ordered Quantity: 90.0 Unit: tablet Repeat number: 4 bumetanide 1 mg oral tablet 1 mg, 1, tablet, By Mouth, 2 times a day, 2 tablets in am, 1 tablet in pm, # 60 tablet, Refills 0, Tot. Refills 0, Maintenance, 03/06/19 12:43:46 PM EST, Route to Pharmacy Electronically, [facility], 180, cm, 03/06/19 8:36:31 EST, [...] Refills, Maintenance, 10/26/19 12:12:00 PM EDT, Capsule, [facility], 180, cm, 10/26/19 11:22:00 EDT, [...] stenosis Confirmed Active Spinal stenosis Confirmed Active Procedures Procedure Date Related Diagnosis Body Site Status Cardiac pacemaker procedure Completed Results Radiology Reports * Exam Date Time Procedure Performing Provider Status 02/14/24 9:[address] Angio Abdomen Tiarra Steele; Auth (Verified) Notes: (CT Angio Abdomen) Reason For Exam: Renal artery dissection suspected;Other: RESULT: CT Angio Abdomen EXAMINATION: CT Angio Chest, CT Angio Abdomen INDICATION: Hx of Present Illness: pt coming from home with sudden onset of midsternal chest pain this morning. Pain is nonradiating. Pt has hx of RI, stents, pacemaker. Pt also endorses sob, howeverthat is baseline. HTN.; Reason: Other:; Aortic disease, nontraumatic; Clinical Question(s): Other:;Aortic Dissection; Order Comment: TECHNIQUE: An initial noncontrast CT of the chest was performed. Spiral CTA of the chest and abdomen was performed after rapid IV contrast administration without cardiac gating triggered by an [facility] aorta. Images are formatted in multiple planes using 2-D multiplanar and 3-D maximum intensity projection. Obliqued images through the aortic root were reconstructed. 100 cc of Isovue 300 was administered intravenously. Weight-based protocol using automatic tube modulation was used to optimize exposure parameters. CTDIvol Body: 12.93 mGy, DLP Body: 395 mGy*cm. COMPARISONS: 12/13/2018. ANGIOGRAPHIC FINDINGS: Calcifications associated with the aortic valve leaflets which can be seen with aortic stenosis. Scattered calcifications of the thoracic aorta. No aneurysm, dissection, penetrating ulcer or significant stenosis. Left-sided 3 vessel aortic arch. The great arch vessels are patent with no significantstenosis. Pulmonary arteries are normal in caliber. No evidence of central pulmonary embolism on this study performed without dedicated technique. Abdominal aorta: Diffuse atherosclerosis. No aneurysm, dissection or significant stenosis. Celiac axis: Patent. Proximal calcification with focal mild ostial stenosis. Superior mesenteric artery: Focally occluded with reconstitution at its first primary branch via prominent pancreaticoduodenal collaterals. There is scattered atherosclerosis of the distal artery. Right renal artery: 2 patent arteries with an accessory artery to the lower pole. Mild ostial stenosis of the main artery. Left renal artery: 3 patent arteries with an accessory artery to the lower pole that originates on the mid infrarenal abdominal aorta and another accessory artery to the upper pole. The main renal artery is occluded with some reconstitution of distal branches. Inferior mesenteric artery: Patent. Visualized iliac arteries: Incompletely visualized, likely penetrating ulcer/small intimal flap of the proximal right common iliac artery. NON-ANGIOGRAPHIC FINDINGS: Custom Applicator View Findings, Lines and Tubes: 2-lead right subclavian pacer. Left hip arthroplasty. Trachea and Airways: Patent without evidence of tracheal or endobronchial lesion. Lungs and Pleura: Prominent interstitial/reticular markings with thickening of the interlobular septa, suggesting mild pulmonary edema. Likely background of reticular chronic interstitial opacities and/or atelectasis. No focal consolidation. No effusion or pneumothorax. Mediastinum and griselda: No mass or hematoma. No mediastinal or hilar lymphadenopathy. No esophageal abnormality. Normal thyroid. Heart: Mild cardiomegaly. No pericardial effusion. Moderate coronary artery calcification. Unchanged positioning of the cardiac leads. Chest Wall Soft Tissues: No acute abnormality. Diaphragm : No significant abnormality. Liver: Normal. Gallbladder: Status post cholecystectomy. Bile ducts: No biliary ductal dilation. Spleen: Normal. Pancreas: Diffuse atrophy. Multiple cystic lesions and prominence of the main pancreatic duct. The largest cystic lesion is located exophytic from the tail measuring 2.6 x 1.7 cm. Adrenal glands: Normal. Kidneys and ureters: Hypoperfusion of the main body of the left kidney with preserved enhancement of the upper and lower poles, reflecting the vascular findings above. Parenchymal stone identified inthe lower left kidney. No hydronephrosis or suspicious mass. Stomach, small bowel, and large bowel: No evidence of bowel obstruction or focal inflammation. Scattered diverticula of the visualized colon. No evidence of acute diverticulitis. Peritoneum and retroperitoneum: No ascites or pneumoperitoneum. No omental or mesenteric lesions. Lymph nodes: No enlarged lymph nodes. Abdominal wall: Unremarkable. Bones: No acute abnormality. Degenerative changes. IMPRESSION: 1. No evidence of acute aortic syndrome. 2. Proximal occlusion of the SMA. The celiac axis and BEST remain patent. 3. Occluded main left renal artery. 4. Evidence of pulmonary edema. 5. Multiple cystic lesions in an atrophic pancreas. Further characterization with MRI recommended. WSN: [id number] Ordering Physician: Emanuel Eng Dictated By: Rober Reeves MD Dictated Date/Time: 02/14/24 10:24 a Reviewed By: Rober Reeves MD Signed By: Rober Reeves MD Signed Date/Time: 02/14/24 10:24 am Transcribed By: CSCaterina Transcribed Date/Time: 02/14/24 9:54 am * Exam Date Time Procedure Performing Provider Status 02/14/24 9:[address] Angio Chest Tiarra Steele; Auth ( Verified) Notes: (CT Angio Chest) Reason For Exam: Aortic disease, nontraumatic;Other: RESULT: CT Angio Chest EXAMINATION: CT Angio Chest, CT Angio Abdomen INDICATION: Hx of Present Illness: pt coming from home with sudden onset of midsternal chest pain this morning. Pain is nonradiating. Pt has hx of RI, stents, pacemaker. Pt also endorses sob, howeverthat is baseline. HTN.; Reason: Other:; Aortic disease, nontraumatic; Clinical Question(s): Other:;Aortic Dissection; Order Comment: TECHNIQUE: An initial noncontrast CT of the chest was performed. Spiral CTA of the chest and abdomen was performed after rapid IV contrast administration without cardiac gating triggered by an [facility] aorta. Images are formatted in multiple planes using 2-D multiplanar and 3-D maximum intensity projection. Obliqued images through the aortic root were reconstructed. 100 cc of Isovue 300 was administered intravenously. Weight-based protocol using automatic tube modulation was used to optimize exposure parameters. CTDIvol Body: 12.93 mGy, DLP Body: 395 mGy*cm. COMPARISONS: 12/13/2018. ANGIOGRAPHIC FINDINGS: Calcifications associated with the aortic valve leaflets which can be seen with aortic stenosis. Scattered calcifications of the thoracic aorta. No aneurysm, dissection, penetrating ulcer or significant stenosis. Left-sided 3 vessel aortic arch. The great arch vessels are patent with no significantstenosis. Pulmonary arteries are normal in caliber. No evidence of central pulmonary embolism on this study performed without dedicated technique. Abdominal aorta: Diffuse atherosclerosis. No aneurysm, dissection or significant stenosis. Celiac axis: Patent. Proximal calcification with focal mild ostial stenosis. Superior mesenteric artery: Focally occluded with reconstitution at its first primary branch via prominent pancreaticoduodenal collaterals. There is scattered atherosclerosis of the distal artery. Right renal artery: 2 patent arteries with an accessory artery to the lower pole. Mild ostial stenosis of the main artery. Left renal artery: 3 patent arteries with an accessory artery to the lower pole that originates on the mid infrarenal abdominal aorta and another accessory artery to the upper pole. The main renal artery is occluded with some reconstitution of distal branches. Inferior mesenteric artery: Patent. Visualized iliac arteries: Incompletely visualized, likely penetrating ulcer/small intimal flap of the proximal right common iliac artery. NON-ANGIOGRAPHIC FINDINGS: Custom Applicator View Findings, Lines and Tubes: 2-lead right subclavian pacer. Left hip arthroplasty. Trachea and Airways: Patent without evidence of tracheal or endobronchial lesion. Lungs and Pleura: Prominent interstitial/reticular markings with thickening of the interlobular septa, suggesting mild pulmonary edema. Likely background of reticular chronic interstitial opacities and/or atelectasis. No focal consolidation. No effusion or pneumothorax. Mediastinum and griselda: No mass or hematoma. No mediastinal or hilar lymphadenopathy. No esophageal abnormality. Normal thyroid. Heart: Mild cardiomegaly. No pericardial effusion. Moderate coronary artery calcification. Unchanged positioning of the cardiac leads. Chest Wall Soft Tissues: No acute abnormality. Diaphragm : No significant abnormality. Liver: Normal. Gallbladder: Status post cholecystectomy. Bile ducts: No biliary ductal dilation. Spleen: Normal. Pancreas: Diffuse atrophy. Multiple cystic lesions and prominence of the main pancreatic duct. The largest cystic lesion is located exophytic from the tail measuring 2.6 x 1.7 cm. Adrenal glands: Normal. Kidneys and ureters: Hypoperfusion of the main body of the left kidney with preserved enhancement of the upper and lower poles, reflecting the vascular findings above. Parenchymal stone identified inthe lower left kidney. No hydronephrosis or suspicious mass. Stomach, small bowel, and large bowel: No evidence of bowel obstruction or focal inflammation. Scattered diverticula of the visualized colon. No evidence of acute diverticulitis. Peritoneum and retroperitoneum: No ascites or pneumoperitoneum. No omental or mesenteric lesions. Lymph nodes: No enlarged lymph nodes. Abdominal wall: Unremarkable. Bones: No acute abnormality. Degenerative changes. IMPRESSION: 1. No evidence of acute aortic syndrome. 2. Proximal occlusion of the SMA. The celiac axis and BEST remain patent. 3. Occluded main left renal artery. 4. Evidence of pulmonary edema. 5. Multiple cystic lesions in an atrophic pancreas. Further characterization with MRI recommended. WSN: [id number] Ordering Physician: Emanuel Eng Dictated By: Rober Reeves MD Dictated Date/Time: 02/14/24 10:24 a Reviewed By: Rober Reeves MD Signed By: Rober Reeves MD Signed Date/Time: 02/14/24 10:24 am Transcribed By: LUIS Transcribed Date/Time: 02/14/24 9:54 am * Exam Date Time Procedure Performing Provider Status 02/14/24 9:20 AM Chest Portable Davi Shukla; Auth (Verified) Notes: (Chest Portable) Reason For Exam: Shortness of Breath RESULT: Chest Portable Chest Portable Hx of Present Illness: pt coming from home with sudden onset of midsternal chest pain this morning.Pain is nonradiating. Pt has hx of RI, stents, pacemaker. Pt also endorses sob, however that is baseline. HTN.; Reason: Shortness of Breath; Clinical Question(s): CHF COMPARISON: 12/01/2022 FINDINGS: LINES AND TUBES: Triple-lead left subclavian pacer/AICD wires are intact. LUNGS AND PLEURA: Reticular markings both lungs similar to previous exam. Likely chronic lung disease. No pleural effusion. No pneumothorax. HEART, MEDIASTINUM AND GRISELDA: Unchanged. Normal mediastinal and hilar contour. BONES AND SOFT TISSUES: No acute abnormality. IMPRESSION: No acute abnormality. WSN: [id number] Ordering Physician: Elia Mccurdy Dictated By: Sidney Henson MD Dictated Date/Time: 02/14/24 9:22 am Reviewed By: Sidney Henson MD Signed By: Sidney Henson MD Signed Date/Time: 02/14/24 9:22 am Transcribed By: LUIS Transcribed Date/Time: 02/14/24 9:21 am Vital Signs Most recent to oldest [Reference Range]: 1 2 3 Height 180 cm (02/17/24 12:23 PM) 180 cm (02/17/24 8:14 AM) 180 cm (02/16/24 4:00 PM) Weight 79 kg (02/17/24 4:31 AM) 78 kg (02/15/24 3:33 PM) 78.2 kg (02/14/24 8:53 PM) Oxygen Saturation [94-100 %] 98 % (02/17/24 12:23 PM) 96 % (02/17/24 8:14 AM) 94 % (02/17/24 4:00 AM) Pulse Rate [55-90 bpm] 76 bpm (02/17/24 12:23 PM) 60 bpm (02/17/24 8:14 AM) 62 bpm (02/17/24 4:00 AM) Body Mass Index [18.5-24.99 kg/m2] 24.07 kg/m2 (02/15/24 3:33 PM) 24.14 kg/m2 (02/14/24 8:53 PM) 24.14 kg/m2 (02/14/24 3:45 PM) Blood Pressure [90-138/55-84 mm Hg] 125/66mm Hg (02/17/24 12:23 PM) 154/67mm Hg *H* (02/17/24 8:14 AM) 139/55mm Hg *H* (02/17/24 4:00 AM) Respiratory Rate [16-30 br/min] 18 br/min (02/17/24 12:23 PM) 18 br/min (02/17/24 8:14 AM) 18 br/min (02/17/24 4:00 AM) Temperature [96.8-100.4 DegF] 97.3 DegF (02/17/24 12:23 PM) 97.5 DegF (02/17/24 8:14 AM) 98.3 DegF (02/17/24 4:00 AM) Liters per Minute 1 L/min (02/16/24 8:26 AM) 1 L/min (02/16/24 3:26 AM) 1 L/min (02/16/24 12:10 AM) Mode of Delivery (Oxygen) Room air (02/17/24 12:23 PM) Room air (02/17/24 8:14 AM) Room air (02/17/24 4:00 AM) Blood pressure sites Arm, left (02/17/24 12:23 PM) Arm, left (02/17/24 8:14 AM) Arm, left (02/17/24 4:00 AM) Temperature Route Oral (02/17/24 12:23 PM) Oral (02/17/24 8:14 AM) Oral (02/17/24 4:00 AM) Dry Weight 78 kg (02/15/24 3:33 PM) 78.2 kg (02/14/24 8:53 PM) 78.2 kg (02/14/24 3:45 PM) Dry Weight Obtained Via Patient/family s tated (02/14/24 8:41 AM) Social History Social History Type Response Smoking Status Never smoker entered on: 11/03/16 Sex Sex Representation Male (finding) Note * Tohsia Diane RN: PERFORM, SIGN, VERIFY Event Display: Cardiac Rehab Note Authored Date: [id number] Patient: KEVIN RODRÍGUEZ Age: 83 years Sex: Male : 1940 Associated Diagnoses: None Author: Toshia Diane RN Pre-exercise Vitals Vital Signs Comment: Reviewed in [facility]. Pre-exercise Physical Examination Neurologic: alert & oriented. Activity Symptoms with Cardiac Rehab Symptoms: No exertional symptoms. Activity Ambulate: independent. Patient Education Education: Patient alone, Post procedure guidelines, Heart Attack handbook. Education topic Teachback comprehension 75% Topic: Medication education, Role of exercise, Infarct recovery guidelines. Recommendation and Plan Outpatient follow up recommended: [facility]. Cardiac Rehab: Will sign off at this time. * Jaydon Snider RN: PERFORM Event Display: Discharge/Transfer Note Hospital Authored Date: [id number] Nursing Discharge Note Entered On: 02/17/2024 17:16 EST Performed On: 02/17/2024 17:16 EST by Jaydon Snider RN Nursing Discharge Note 2 Discharge Time : 02/17/2024 17:15 EST Discharge Level of Care at Discharge : Home/Penitentiary/Foster Care Patient Left Unit Via : Wheelchair Patient Accompanied Off Unit with : Responsible adult DC Instructions Provided & Signed by Pt : Yes Patient Understands D/C Instructions : Yes Patient Instructions Discharge Signed : Yes Did Pt have Specialty Bed or Wound Vac : No Jaydon Snider RN - 02/17/2024 17:16 EST * Michael Yeung MD: PERFORM Event Display: Discharge/Transfer Note Hospital Authored Date: [id number] Patient: ??KEVIN RODRÍGUEZ ? Age:??83 Years?Sex:??Male?:??1940?? 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) Cardiomyopathy (I42.9) CKD stage 3 (N18.30) CAD - Coronary artery disease (I25.10) Hyperlipidemia (E78.5) Atrial flutter (I48.92) Interstitial lung disease (J84.9) History of BPH (Z87.438) _ Discharge Medications Acetaminophen (Tylenol Extra Strength 500 mg oral tablet)?2?tab(s)?1,000?Milligram?By Mouth?Every 4 hours?as needed?for pain?before bed Albuterol (albuterol CFC free 90 mcg/inh inhalation aerosol)?2?puff(s)?Inhalation?Every6 hours?as needed?for wheezing?4 times a day Albuterol (albuterol 0.083% inhalation solution)?3?Milliliter?2.5?Milligram?Neb?2times a day?Every 6 hours Allopurinol (allopurinol 300 mg oral tablet)?300?Milligram?1?tablet?By Mouth?Daily Amlodipine (amLODIPine 2.5 mg oral tablet)?1?tab(s)?2.5?Milligram?By Mouth?Daily apixaban (apixaban 2.5 mg oral tablet)?2.5?Milligram?By Mouth?2 times a day?Refill per PCP or Cardiology Aspirin (aspirin 81 mg oral delayed release tablet)?81?Milligram?By Mouth?Daily?Refill per PCP or Cardiology Atorvastatin (atorvastatin 80 mg oral tablet)?80?Milligram?By Mouth?Daily at bedtime Bumetanide (bumetanide 1 mg oral tablet)?1?Milligram?1?tablet?By Mouth?2 times a day?2 tablets in am, 1 tablet in pm Calcitriol (calcitriol 0.25 mcg oral capsule)?45 each, 0 Refill(s), TAKE 1 CAPSULE BY MOUTH EVERY OTHER DAY Finasteride (finasteride 5 mg oral tablet)?1?tab(s)?5?Milligram?By Mouth?Daily Metoprolol (Metoprolol Succinate ER 50 mg oral tablet, extended release)?100?Milligram?2?tablet?By Mouth?Daily?TAKE 2 TABLETS BY MOUTH EVERY DAY tafamidis (Vyndamax 61 mg oral capsule)?1?capsule?61?Milligram?By Mouth?Daily?for 10?Days?swallow whole ? Quality Measures Chest Pain, AMI Quality Measures:?ACEI or ARB for LVSD:??Both ACEI & ARB are contraindicated ?Beta-Wilder Prescribed at Discharge:??Beta-Wilder??already prescribed ?Aspirin Prescribed at Discharge:??Aspirin Prescribed ?Statin Prescribed at Discharge:??Statin already prescribed ? Vaccinations and Immunoprophylaxis influenza virus vaccine, inactivated: 0.5 mL (03/01/19 16:45:00) ?? Durable Medical Equipment Discharge recommendations: None (02/15/24) Ambulatory devices needed: Cane (02/15/24) ? Medications Started ASA Eliquis Medications Discontinued Plavix Doses Changed None Allergies Allergies ?(Active and Proposed Allergies Only) No Known Medication Allergies? (Severity: Unknown severity, Onset: Unknown) Other Environmental Allergy? (Severity: Unknown severity, Onset: Unknown) ?Comments: pak and perfumes ? Hospital Course 83-year-old gentleman past medical history of atrial flutter status post ablation, amyloidosis, BPH, hypertension, hyperlipidemia coronary artery disease presented to the hospital with chief complaint of chest pain (admitted to inpatient 02/13),??was diagnosed with NSTEMI started on medical treatmen t??including heparin drip;??PV??Cardiology was consulted, patient??was recommended for??cardiac cath??which was performed 02/15 (Dr. Coleman),??findings excerpted below. ?? LVEDP 15 mmHg. No significant pullback gradient across aortic valve. ?? Diagnostic angiogram revealed mild diffuse disease of the LMCA, mild diffuse disease of the LAD with patent stent in the proximal LAD, 50% stenosis in the distal subsection of mid LAD which appears to be a large thrombus. This thrombus extended into the proximal subsection of the distal LAD which is 80% occluded with the thrombus. Mild diffuse disease of the LCx, moderate diffuse disease of the RCA with patent stent in the distal RCA. There is a dissection noted in the distal segment of the proximal RCA and mild diffuse disease of the ramus intermediate artery. ?? Interventional Summary Mid-distal LAD: IVUS guided successful PCI of the mid to distal LAD with mechanical thrombectomy using indigo system 5.3 Yoruba with multiple passes followed by 2.0 mm X12 millimeter semicompliant balloon to break down the thrombus. A small amount of thrombus is still noted in the mid segment of the distal LAD butconsidering the small caliber vessel, the risk of intervention outweighs the benefit and hence leftfor medical management. ? 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 ?? Interventional Recommendations The IVUS assessment of the LAD indicates that there is no plaque rupture. Hence this is most likelya cardioembolic event. Considering this, we would recommend Definity echocardiogram to rule out anyLV thrombus. Would also recommend 3 to 6 months of Eliquis p.o. daily and reassess for bleeding issues particularly in the setting of previous history of alveolar hemorrhage. ?? Echocardiogram??(02/15) The left ventricle is normal in size and has mild concentric left ventricular hypertrophy. Systolic function is moderately reduced with ejection fraction of 35-40% by biplane Nair's; abnormal average global longitudinal strain of - 8.0%. There is global hypokinesis with mild hypokinesis of basalinferior and inferoseptal oliveira. Unable to assess diastolic function due to atrial fibrillation. The right ventricle is dilated with reduced systolic function. Severe biatrial enlargement. ?? 02/16:??Accepted patient under my care at 7AM. Chart reviewed, saw and examined patient.?Patientdenying acute complaints.??However??he was initially refusing??to be on??Eliquis because of??issueswith??hemoptysis/blood in his lungs??when he was on this medication in the past.??Spent quite some time counseling him,??eventually he agreed that he would??go on Eliquis if Cardiology strongly recommended it.??Later on??Dr. Shah was able to mortgage loan counselor patient/family further and??agreed to take the Eliquis therefore heparin drip is stopped and Eliquis was ordered.??Provided he tolerates Eliquis without issue, he can be discharged later today. ?? Assessment and Plan ? NSTEMI (non-ST elevated myocardial infarction) (I21.4):? CAD - Coronary artery disease (I25.10): Status post catheterization/indigo??thrombectomy/stenting??02/15 Echo has been performed as well, findings as above Has been treated with heparin drip post cath;??Cards recommended??apixaban but??patient was very hesitant about this, agreed after??counseling ?? -Discharge??home -Follow-up with PCP and [facility] Cardiology -Stop Plavix; take ASA and Eliquis??on DC (2.5 twice daily??given age and??renal impairment) -Continue remaining home medications including amlodipine ?? Hypertensive urgency (I16.0):?? Ideally would not be amlodipine given his history of amyloidosis however discussed with Cardiology and right now this seems to be the best option given his renal impairments, and he is currently tolerating the low-dose -Continue amlodipine, metoprolol ? HFrEF - heart failure with reduced ejection fraction (I50.20):?? 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 Cardiomyopathy (I42.9):?? -Continue antihypertensives as above and home Bumex ? Atrial flutter (I48.92):?? History of ablation -Continue home medications ?? Interstitial lung disease (J84.9):?? VSS RA -Follow-up with PCP ?? History of BPH (Z87.438): -finasteride ? Hyperlipidemia (E78.5) -Continue atorvastatin 80 mg daily ? Please note, dictation software ([employer])??may have been used in the preparation of this note, and may have generated unintentional errors in speech recognition. If there are any questions going forward, please reach out for clarification. Objective Measurements?? Height: 180 cm (02/17/24) Weight: 79 kg (02/17/24) Dry Weight: 78 kg (02/15/24) Body Mass Index: 24.07 kg/m2 (02/15/24) ? Vital Signs?? Temperature: 97.3 DegF (02/17/24 12:23:00) Temperature Route: Oral (02/17/24 12:23:00) Pulse Rate: 76 bpm (02/17/24 12:23:00) Respiratory Rate: 18 br/min (02/17/24 12:23:00) Systolic Blood Pressure: 125 mm Hg (02/17/24 12:23:00) Diastolic Blood Pressure: 66 mm Hg (02/17/24 12:23:00) Blood pressure sites: Arm, left (02/17/24 12:23:00) Mean Arterial Pressure: 86 mm Hg (02/17/24 12:23:00) Pulse Pressure: 59 mm Hg (02/17/24 12:23:00) Oxygen Saturation: 98 % (02/17/24 12:23:00) Mode of Delivery (Oxygen): Room air (02/17/24 12:23:00) Early Warning Score: 2 (02/17/24 12:33:24) ? . Physical Exam Constitutional: Alert, in no acute distress. Head EENT: PERRL.??NCAT. Neck: Supple. No obvious LAD. Respiratory: CTAB. No use of accessory muscles. Cardiovascular: S1S2 present. No obvious JVD. Gastrointestinal: Abdomen soft, non-tender, non-distended. Bowel sounds present. Genitourinary: No CVA tenderness. Genital exam deferred. Extremities: No lower extremity pitting??edema. No cyanosis or clubbing. Neurologic: Alert, generally appropriate. Speech normal. No gross focal neurological deficits. Consultants PV Cards Pending Results Basic Metabolic Panel ordered on 02/14/2024 High??Sensitivity??Troponin T ordered on 02/14/2024 PTT ordered on 02/16/2024 PTT ordered on 02/16/2024 PTT ordered on 02/18/2024 Follow-Up Appointments Added Follow Up ?Time Frame ?Comments [facility] Cardiac Rehab?03/17/2024 [id number] Mayra Calvillo Post Discharge Care Discharge ?This Afternoon, Discharge 2-3h after apixaban dose if stable, 02/17/24 14:26:00 EST Results Discharge Labs BLOOD BANK Blood Type O Positive ()?? 02/14/2024 09:07 Antibody Screen Negative ()?? 02/14/2024 09:07 ?? BLOOD COUNT & DIFF WBC 7.4 k/mm3 ()?? 02/16/2024 11:56 RBC 3.81 m/mm3 (Low)?? 02/16/2024 11:56 Hgb 11.4 Gm/dL (Low)?? 02/16/2024 11:56 Hct 36.0 % (Low)?? 02/16/2024 11:56 MCV 94.5 femtoliters (High)?? 02/16/2024 11:56 MCH 29.9 pg ()?? 02/16/2024 11:56 MCHC 31.7 Gm/dL (Low)?? 02/16/2024 11:56 Platelet Count 170 k/mm3 ()?? 02/16/2024 11:56 RDW-SD 52.8 femtoliters (High)?? 02/16/2024 11:56 MPV 9.7 femtoliters ()?? 02/16/2024 11:56 Nucleated RBC (Automated) 0.0 #/100 WBC'S ()?? 02/16/2024 11:56 Abs. NRBC 0.0 k/mm3 ()?? 02/16/2024 11:56 Abs. Neut 5.3 k/mm3 ()?? 02/14/2024 09:11 Abs. Lymph 1.1 k/mm3 ()?? 02/14/2024 09:11 Abs. [place] 0.5 k/mm3 ()?? 02/14/2024 09:11 Abs. Eo 0.1 k/mm3 ()?? 02/14/2024 09:11 Abs. Baso 0.0 k/mm3 ()?? 02/14/2024 09:11 Neut % 75.8 % ()?? 02/14/2024 09:11 Lymph % 16.0 % ()?? 02/14/2024 09:11 [place] % 6.7 % ()?? 02/14/2024 09:11 Eos % 1.1 % ()?? 02/14/2024 09:11 Baso % 0.3 % ()?? 02/14/2024 09:11 Imm Gran 0.1 % ()?? 02/14/2024 09:11 Abs. Imm Gran 0.0 k/mm3 ()?? 02/14/2024 09:11 ?? CARDIAC Nt-Probnp 4256 pg/mL (High)?? 02/14/2024 09:11 High Sensitivity Troponin (HSTnT) 2186 ng/L (Critical)?? 02/16/2024 01:00 ?? CHEM GENERAL Sodium 141 mmol/L ()?? 02/16/2024 12:09 Potassium 3.8 mmol/L ()?? 02/16/2024 12:09 Chloride 103 mmol/L ()?? 02/16/2024 12:09 Bicarbonate Level 24 mmol/L ()?? 02/16/2024 12:09 Anion Gap 14 ()?? 02/16/2024 12:09 Glucose Level 142 mg/dL (High)?? 02/16/2024 12:09 Glucose, POC 154 mg/dL (High)?? 02/17/2024 12:25 Hemoglobin A1C (Monitoring) 7.5 % (High)?? 02/15/2024 06:22 BUN 36 mg/dL (High)?? 02/16/2024 12:09 Creatinine-Blood 1.58 mg/dL (High)?? 02/16/2024 12:09 Estimated GFR Creatinine 43 ML/MIN/1.73 M2 ()?? 02/16/2024 12:09 Calcium 9.2 mg/dL ()?? 02/16/2024 12:09 Magnesium 2.2 mg/dL ()?? 02/15/2024 06:22 Protein, Total 6.6 Gm/dL ()?? 02/16/2024 01:00 Albumin 3.4 Gm/dL ()?? 02/16/2024 01:00 AG Ratio 1.1 ()?? 02/16/2024 01:00 Alkaline Phosphatase 95 units/L ()?? 02/16/2024 01:00 AST (SGOT) 90 units/L (High)?? 02/16/2024 01:00 ALT (SGPT) 23 units/L ()?? 02/16/2024 01:00 Bilirubin, Total 0.7 mg/dL ()?? 02/16/2024 01:00 Estimated Average Glucose 169 mg/dL ()?? 02/15/2024 06:22 ? COAG INR 1.0 ()?? 02/14/2024 09:11 Protime (PT) 11.1 seconds ()?? 02/14/2024 09:11 APTT 68.5 seconds (High)?? 02/17/2024 08:10 POC ACT-LR 376.0 seconds ()?? 02/16/2024 11:05 ?? ENDOCRINE/TUMOR MARKER TSH 2.35 uIU/mL ()?? 02/14/2024 09:11 ? LIPID STUDIES Cholesterol 94 mg/dL ()?? 02/15/2024 06:22 Triglycerides 47 mg/dL ()?? 02/15/2024 06:22 HDL Cholesterol 37 mg/dL (Low)?? 02/15/2024 06:22 LDL Cholesterol 48 mg/dL ()?? 02/15/2024 06:22 Non HDL Cholesterol 57 mg/dL ()?? 02/15/2024 06:22 ? URINE OTHER Est Creatinine Clearance 36.26 mL/min ()?? 02/16/2024 12:56 ? 40??minutes spent on discharge * Zabrina Jaeger RN: PERFORM, MODIFY Event Display: Patient Education/Instruction Authored Date: [id number] Inpatient Adult Discharge Instructions. [place] [id number] Name: KEVIN RODRÍGUEZ : 1940?? Visit: 02/14/2024 12:08?? Current Date: 02/17/2024 14:49 ?? Account: [id number]?? Inpatient Adult Discharge Instructions We would like to thank you for allowing us to assist you with your healthcare needs. The following includes patient education materials and information regarding your injury/illness. Our entire staffstrives to provide an excellent experience for our patients and their families. PLEASE ENSURE YOU FOLLOW-UP PER THE INSTRUCTIONS BELOW! ?? YOUR OPINION IS IMPORTANT TO US! Please complete the survey you may receive by mail or email. Your feedback will be used to make improvements to the healthcare experiences of our patients and their families. Surveys are administered by [employer] ?? If further treatment with your primary care physician or another doctor is recommended, it is important for you to keep the appointment. Call your primary care physician or return to the Emergency Department immediately if your condition worsens, fails to improve, or new symptoms develop. If you need to find a doctor, you can call [facility] Link for a referral at [phone] or toll free at [phone]) or log in to [email or web address].. ?? [facility], in keeping with [facility] guidance, no longer requires face masks [...] medical provider or home test kit. ?? You can view and manage your care through the patient portal or by using a health care steve of your choosing. [employer] is a website that allows you to securely view your medical information including your hospital discharge summary, office visit summaries, medications and follow-up visits. You can also request appointments, renew medications, and request access to your medical information using a health care steve of your choosing, or just ask a question. You can enroll at [email or web address] or register during your next office visit. You have been discharged from [facility], Patient Care Unit: M6??. If you have any questions regarding these instructions, including results of studies pending, afteryou leave, please call us and we will be happy to assist you 13/10. [facility] Your Care Team Attending Physician Michael Yeung MD?? Consulting Providers Michael Yeung MD?? Discharging Providers Michael Yeung MD Reason for Your Visit Sudden onset chest pain this morning?? Your Diagnosis NSTEMI (non-ST elevated myocardial infarction) Hypertensive urgency HFrEF - heart failure with reduced ejection fraction Amyloidosis Cardiomyopathy CKD stage 3 CAD - Coronary artery disease Hyperlipidemia Atrial flutter Interstitial lung disease History of BPH Tests Performed Below is a partial list of the tests performed during your hospitalization. You may have had other tests and procedures not included in this list. Please discuss all test results with your provider. Basic Metabolic Panel CBC CBC w/ Differential Comprehensive Metabolic Panel GLUCOSE POC Hemoglobin A1C w/ Estimated Glucose High??Sensitivity??Troponin T?-- Results Pending -- Lipid Panel Magnesium Level POC Hemochron ACT-LR ProBNP PT (INR) Troponin T, High Sensitivity TSH with T4 Reflex (Adults Only) Type and Screen CT Angio Abdomen CT Angio Chest XR Chest Portable B Type Natriuretic Peptide (ProBNP)?? Basic Metabolic Panel?? CBC?? CBC w/ Differential?? CT Angio Abdomen?? CT Angio Chest?? Comprehensive Metabolic Panel?? Glucose POC?? Hemoglobin A1C w/ Estimated Glucose?? High??Sensitivity??Troponin T (Troponin T, High Sensitivity)?? INR (PT (INR))?? Lipid Panel?? Magnesium Level?? POC ACT-LR (POC Hemochron ACT-LR)?? PTT?? TSH with T4 Reflex (Adults Only)?? Type and Screen?? Chest Portable (XR Chest Portable)?? Primary Care Provider Mayra Calvillo MD? Advance Directive Health Care Proxy on File Yes - Health Care Proxy Discharge Vitals Temperature: 97.3 DegF Height: 180 cm Pulse Rate: 76 bpm Weight: 79 kg Respiratory Rate: 18 br/min Body Mass Index: 24.07 kg/m2 Systolic Blood Pressure: 125 mm Hg Body surface area: 1.97 Diastolic Blood Pressure: 66 mm Hg ?? Oxygen Saturation: 98 % ?? Studies Pending All studies ordered during this hospital stay have been completed unless listed below. Please discuss all pending results with your provider listed above in these instructions. ?? Basic Metabolic Panel?? High??Sensitivity??Troponin T?? PTT?? What to do next Instructions From Your Doctor ?? Orders?? Afternoon, ??Discharge 2-3h after apixaban dose if stable, ??02/17/24 14:26:00 EST?? You Need to Schedule the Following Appointments Follow Up with??[facility] Cardiac Rehab When:??03/17/2024 08:00 AM EST Why: [phone] Where: [address] [facility] [address] [place], [place] Follow Up with??Mayra Calvillo When:??In 0 days Where: [address] [place] [address]- Business (1) Discharge Medications RODOLFO KEVIN :1940 Visit Date:02/14/2024 Medications: Please continue your medications until treatment is completed or stopped by your provider. Medications not listed below should be discontinued. Discuss any questions related to medications with your provider. What How Much When Instructions Next Dose New apixaban (apixaban 2.5 mg oral tablet) 2.5 Milligram Oral Twice a day Refill per PCP or Cardiology ?? Pickup at [facility] 3 Tonight at Bedtime 02/17/24 Changed Aspirin (aspirin 81 mg oral delayed release tablet) 81 Milligram Oral Daily Refill per PCP or Cardiology ?? Pickup at [facility] 3 Tomorrow Morning 02/18/24 Changed Calcitriol (calcitriol 0.25 mcg oral capsule) 45 each, 0 Refill(s), TAKE 1 CAPSULE BY MOUTH EVERY OTHER DAY ?? Resume Home Dose Changed Metoprolol (Metoprolol Succinate ER 50 mg oral tablet, extended release) 2 tab(s) Oral Daily TAKE 2 TABLETS BY MOUTH EVERY DAY ?? Tomorrow Morning 02/18/24 Unchanged Acetaminophen (Tylenol Extra Strength 500 mg oral tablet) 2 tab(s) Oral As needed for for pain before bed ?? As Needed Before Bed Unchanged Albuterol (albuterol 0.083% inhalation solution) 3 Milliliter Nebulized inhalation Every 6 hours As Needed Every 6 Hrs Unchanged Albuterol (albuterol CFC free 90 mcg/ inh inhalation aerosol) 2 puff(s) Inhalation 4 times a day as needed for for wheezing As Needed 4 Times Daily Unchanged Allopurinol (allopurinol 300 mg oral tablet) 1 tab(s) Oral Daily Tomorrow Morning 02/18/24 Unchanged Amlodipine (amLODIPine 2.5 mg oral tablet) 1 tab(s) Oral Daily Tomorrow Morning 02/18/24 Unchanged Atorvastatin (atorvastatin 80 mg oral tablet) 80 Milligram Oral Daily at Bedtime Tonight at Bedtime 02/17/24 Unchanged Bumetanide (bumetanide 1 mg oral tablet) 1 tab(s) Oral Twice a day 2 tablets in am, 1 tablet in pm ?? Tonight at Bedtime 02/17/24 Unchanged Finasteride (finasteride 5 mg oral tablet) 1 tab(s) Oral Daily Tomorrow Morning 02/18/24 Unchanged tafamidis (Vyndamax 61 mg oral capsule) 1 capsule Oral Daily Duration: 10 Days swallow whole ?? Tomorrow Morning 02/18/24 Pharmacy Information [facility] 3: [address], [place] [id number] [phone] ?? What How Much When Comments Stop Taking Clopidogrel (clopidogrel 75 mg oral tablet) 90 each, 0 Refill(s), TAKE 1 TABLET BY MOUTH EVERY DAY ?? Stop Taking Insulin Aspart-Insulin Aspart Protamine (Insulin Aspart-Insulin Aspart Protamine FlexPen 30 units-70 units/ mL subcutaneous suspension) 0 Refill(s) ?? Stop Taking Lisinopril (lisinopril 5 mg oral tablet) 1 tab(s) Oral Daily Prescription Given During Visit Aspirin (aspirin 81 mg oral delayed release tablet) - 81 mg, By Mouth, Daily, # 30 tablet, 0 Refills, Refill per PCP or Cardiology, [facility], [address] [place] [phone]?? apixaban (apixaban 2.5 mg oral tablet) - 2.5 mg, By Mouth, 2 times a day, # 60 tablet, 0 Refills, Refill per PCP or Cardiology, [facility] 3, [address] [place] [id number] [phone]?? Laboratory Results Below is a partial list of the most recent Laboratory test results done prior to this discharge. You may have had other tests and procedures not included in this list. Please discuss all test resultswith your provider. Est Creatinine Clearance - 36.26 mL/min (02/16/2024) Basic Metabolic Panel (02/16/2024) ???Sodium - 141 mmol/L???Potassium - 3.8 mmol/L???Chloride - 103 mmol/L???Bicarbonate Level - 24 mmol/L???Anion Gap - 14???Glucose Level - 142 mg/dL???BUN - 36 mg/dL???Creatinine-Blood - 1.58 mg/dL???Estimated GFR Creatinine - 43 ML/MIN/1.73 M2???Calcium - 9.2 mg/dL CBC (02/16/2024) ???WBC - 7.4 k/mm3???RBC - 3.81 m/mm3???Hgb - 11.4 Gm/dL???Hct - 36.0 %???MCV - 94.5 femtoliters???MCH - 29.9 pg???MCHC - 31.7 Gm/dL???Platelet Count - 170 k/mm3???RDW-SD - 52.8 femtoliters???MPV - 9.7 femtoliters???Nucleated RBC (Automated) - 0.0 #/100 WBC'S???Abs. NRBC - 0.0 k/mm3 CBC w/ Differential (02/14/2024) ???WBC - 7.0 k/mm3???RBC - 3.70 m/mm3???Hgb - 11.3 Gm/dL???Hct - 33.8 %???MCV - 91.4 femtoliters???MCH - 30.5 pg???MCHC - 33.4 Gm/dL???Platelet Count - 174 k/mm3???RDW-SD - 50.1 femtoliters???MPV - 9.7 femtoliters???Nucleated RBC (Automated) - 0.0 #/100 WBC'S???Abs. NRBC - 0.0 k/mm3???Abs. Neut - 5.3 k/mm3???Abs. Lymph - 1.1 k/mm3???Abs. [place] - 0.5 k/mm3???Abs. Eo - 0.1 k/mm3???Abs. Baso - 0.0 k/mm3???Neut % - 75.8 %???Lymph % - 16.0 %???[place] % - 6.7 %???Eos % - 1.1 %???Baso % - 0.3 %???Imm Gran - 0.1 %???Abs. Imm Gran - 0.0 k/mm3 Comprehensive Metabolic Panel (02/16/2024) ???Sodium - 140 mmol/L???Potassium - 3.7 mmol/L???Chloride - 103 mmol/L???Bicarbonate Level - 24 mmol/L???Anion Gap - 13???Glucose Level - 140 mg/dL???BUN - 40 mg/dL???Creatinine-Blood - 1.69 mg/dL???Estimated GFR Creatinine - 39 ML/MIN/1.73 M2???Calcium - 9.0 mg/dL???Protein, Total - 6.6 Gm/dL???Albumin - 3.4 Gm/dL???AG Ratio - 1.1???Alkaline Phosphatase - 95 units/L???AST (SGOT) - 90 units/L???ALT (SGPT) - 23 units/L???Bilirubin, Total - 0.7 mg/dL GLUCOSE POC (02/17/2024) ???Glucose, POC - 154 mg/dL Hemoglobin A1C w/ Estimated Glucose (02/15/2024) ???Hemoglobin A1C (Monitoring) - 7.5 %???Estimated Average Glucose - 169 mg/dL Lipid Panel (02/15/2024) ???Cholesterol - 94 mg/dL???Triglycerides - 47 mg/dL???HDL Cholesterol - 37 mg/dL???LDL Cholesterol- 48 mg/dL???Non HDL Cholesterol - 57 mg/dL Magnesium Level (02/15/2024) ???Magnesium - 2.2 mg/dL POC Hemochron ACT-LR (02/16/2024) ???POC ACT-LR - 376.0 seconds ProBNP (02/14/2024) ???Nt-Probnp - 4256 pg/mL PT (INR) (02/14/2024) ???INR - 1.0???Protime (PT) - 11.1 seconds Troponin T, High Sensitivity (02/16/2024) ???High Sensitivity Troponin (HSTnT) - 2186 ng/L TSH with T4 Reflex (Adults Only) (02/14/2024) ???TSH - 2.35 uIU/mL Type and Screen (02/14/2024) ???Blood Type - O Positive???Antibody Screen - Negative You will be contacted within 72 hours with your results. Allergies (NKA means No Known Allergies) No Known Medication Allergies Other Environmental Allergy Problems Active Problems??(19) Amyloidosis?? Atrial flutter?? Bicuspid aortic valve?? CAD - Coronary artery disease?? Cardiac device in situ?? Cardiomyopathy?? CKD stage 3?? Gout?? HFrEF - heart failure with reduced ejection fraction?? History of BPH?? Hyperlipidemia?? Hypertension?? Interstitial lung disease?? MSSA bacteremia?? Olecranon bursitis, left elbow?? PVD - peripheral vascular disease?? Renal artery stenosis?? Spinal stenosis?? Thoracic aortic aneurysm?? Education Materials Below is the list of Educational Leaflet Providered with your Discharge Instructions. [employer] Patient Education - Understanding Coronary Artery Disease (CAD)?? [employer] Patient Education - Discharge Instructions for Cardiomyopathy?? [employer] Patient Education - Living with Cardiomyopathy?? [employer] Patient Education - Understanding Cardiac Amyloidosis?? Valuables and Belongings I fully understand and agree that [facility] accepts no responsibility for all my personal property including clothing, toilet articles, radios, jewelry, dentures, hearing aids, rings, money, or any other property that is in my possession or is brought to me after admission. I understand certain valuables may be placed in a hospital safe for a short period of time. I understand that the hospital is not liable for loss or damage due to accident, fire, or other natural occurrence while said property is in the safe. I accept full responsibility for any personal property that I keep with me, and will not hold the hospital responsible in case of loss or disappearance. I acknowledge that i have been encouraged to send valuables and belongings home. ?? Review of Valuable and Belonging List: With patient, With witness Date for Pt to Sign Valuables/Belongings: 02/14/24 13:09:00 ?? Other Discharge Information ? Pulmonary Rehab Status?? Pulmonary Rehab Discharge Status?? Respiratory Rate: 18 br/min ? Cardiac Rehab Assessment?? Cardiac Rehab Inpatient Assessment?? Comments-Education: post infarct recovery Comments-Exercise Activity: phase 2 referral Comments-Nutrition: per RD Comments-Lipids: meds and diet Patient attending Phase II: Yes Phase II Site of Care: [facility] [address] [facility] [phone] Common Emergency Awareness Tips IS IT A [...] are strongly encouraged to quit. Please call [facility] Link at [phone] or [phone] ([phone]) or log in to [email or web address] for referrals to smoking cessation programs. ?? 137 Suicide & Crisis Lifeline is available 13/10 if you or someone you know needs to find a reason to keep living. By calling 724 you'll be connected to a skilled, trained counselor at a crisis center in your area. INPATIENT DISCHARGE INSTRUCTIONS SIGNATURE PAGE KEVIN RODRÍGUEZ Location:[facility] Registration Date and Time:02/14/2024 12:08 EST Primary Care Physician: Mayra Calvillo MD, Attending Physician: Michael Yeung MD, I KEVIN RODRÍGUEZ, have received the above patient education materials/instructions and have verbalized understanding. If ambulance or transport services are being used I further acknowledge being givena choice of service. ?? If you need to contact me, please call me at this number: . Patient/Manager Of Transportation Name: Patient/Manager Of Transportation Signature: Relationship to Patient: Witness Name/Signature: Date: * Toshia Diane RN: VERIFY, PERFORM, SIGN Event Display: Patient Education Handout Authored Date: [id number] * Zabrina Jaeger RN: PERFORM Event Display: Patient Education Leaflets Authored Date: Understanding Coronary Artery Disease (CAD) ?? 11168 Understanding Coronary Artery Disease (CAD) Your heart is a muscle. To work right, this muscle needs a steady supply of oxygen. The coronary arteries are blood vessels that send oxygen-rich blood to the heart muscle. Coronary artery disease (CAD) is when there???s a problem in these blood vessels. Healthy artery. A healthy coronary artery has no blockages. Blood easily flows through it. Healthy arteries can supply all the oxygen-rich blood your heart muscle needs. Healthy artery. Damaged artery. Some things can damage the lining of an artery. These include smoking, high blood pressure, and high blood sugar. CAD starts when this damage leads to the buildup of plaque along the artery wall. Plaque is a substance made of cholesterol and other fatty deposits. Plaque narrows the arteries that send blood to your heart muscle. This is called atherosclerosis. Damaged artery. Narrowed artery. As more plaque builds up, an artery has trouble sending blood to your heart musclewhen it's needed the most, such as during exercise. You may not feel any symptoms when this happens. Or you may feel pressure, tightness, aching, or pain in your chest, jaw, neck, back, or arm. This is called angina. Narrowed artery. Blocked artery. A piece of plaque can break off. This is called ruptured plaque. It can fully blockthe artery. But more often, a blood clot forms on a piece of ruptured plaque. Together these block the narrowed artery. Then blood can't reach the heart muscle. Right away, part of the heart muscle becomes damaged and stops working. You may feel crushing pressure or pain in or around your chest. This is a heart attack (acute myocardial infarction). It???s a medical emergency. Blocked artery. Last Reviewed Date: 2021 ?? [employer]. All rights reserved. This information is not intended as a substitute for professional medical care. Always follow your healthcare professional's instructions. ?? * Zabrina Jaeger RN: PERFORM Event Display: Patient Education Leaflets Authored Date: [id number] Discharge Instructions for Cardiomyopathy ?? 99032 Discharge Instructions for Cardiomyopathy Cardiomyopathy??means that your heart muscle is not working as it??normally should. The heart muscle may become enlarged, thickened, or rigid. This can make the heart weaker. This condition can make it harder to do things that may have been easy for you in the past. But with treatment and some lifestyle changes,??you and your healthcare provider can help your heart do its job. Home care Work hard to cut the salt from your diet. Here are tips: ??? Limit canned, dried, packaged, and fast foods. ??? Don???t add salt at the table. ??? Season foods with herbs instead of salt when you cook. ??? When you eat out, ask that the salad chef not add any salt to your dish. ??? Don't eat fried or greasy foods. ??? Be careful of bottled beverages. They can contain a lot of salt. Also check the labels of yblg-tvv-bkqsoic medicines and supplements. They may be high in sodium. Ask your pharmacist or provider if you need help finding a low- salt product. Be as active as you can. Ask your healthcare provider what level of exercise is right for you. Tipsto get started: ??? Simple activities such as walking or gardening can help. ??? Find activities you enjoy and makethem a priority. ??? Cardiac rehab programs can help you reach your activity goals. You exercise while staff closely watches the stress on your heart. These programs may be covered by insurance. Other tips for home care: ??? Limit how much fluid you have each day. Your healthcare provider willtell you how much is safe. ??? If you smoke, break the habit. Enroll in a stop-smoking program to improve your chances of success. Join a support group or ask your healthcare provider about nicotine replacement products or medicines to help. ??? Take your medicines exactly as directed. Don???t skipdoses. Don???t stop taking your medicines without talking to your healthcare provider first. ??? Some xbom-wfi-sgwlxdg medicines and herbal supplements can increase your heart rate or blood pressure.This can put extra stress on your heart. Check with your pharmacist or healthcare provider to see if products are heart-safe and won't interact with other medicines you take. ??? Visit your healthcare provider regularly. Mention any problems with your treatment plan. Together you can find a plan that works for you. ??? Weigh yourself at the same time each day. The best time is in the morning after you wake up and after peeing. Wear the same clothing each time. Keep a written record of your daily weight. ??? Eliminate or limit how much alcohol you drink. Too much alcohol is bad for the heart. ?? Follow-up care Make a follow-up appointment as advised. ?? When to call your healthcare provider Call your healthcare provider right away if you have any of the following: ??? You gain more than 2pounds in 1 day, more than 5 pounds in 1 week, or whatever weight gain you were told to report by your healthcare provider. ??? New or increased swelling in your hands, feet, or ankles ?? Call 911 Call 911 if any of the following occur: ??? New or increased??chest pain that doesn't get better with medicine ??? New or increased??shortness of breath ??? Weakness in the muscles of your face, arms, or legs ??? Trouble speaking ??? Rapid pulse or pounding heartbeat ??? Fainting, or feeling dizzy or lightheaded ?? Last Reviewed Date: 2023 ?? [id number] [employer]. All rights reserved. This information is not intended as a substitute for professional medical care. Always follow your healthcare professional's instructions. ?? * Zabrina Jaeger RN: PERFORM Event Display: Patient Education Leaflets Authored Date: [id number] Living with Cardiomyopathy ?? [id number] Living with Cardiomyopathy Your healthcare provider will outline a treatment plan to help you live better with cardiomyopathy.This will stop your condition from getting worse and possibly causing serious problems for your heart and lungs. Follow your healthcare provider's instructions. You can also make some lifestyle changes that will help your heart. Follow your treatment plan Visit your healthcare provider regularly. Talk about any problems you're having with your treatmentplan. Be honest if you're not doing something your provider has advised. They may be able to make some changes to help your plan work better for you. Not following your provider's advice could resultin a serious or life- threatening complication. ?? Balance activity and rest Having cardiomyopathy may mean you get tired more quickly because your heart doesn't work as well as it should. But this shouldn???t keep you from being active. In fact, being active may help you feel better. Talk with your healthcare provider about how much activity is right for you. ?? Take steps to help your heart ??? Stop smoking. Smoking damages your heart muscle and blood vessels. It also causes changes to your lungs that can make it harder to breathe and for your lungs to work. Smoking reduces the oxygen in your blood. Having less oxygen in your blood will make your heart work harder and beat faster. This can cause a heart attack (acute myocardial infarction or AMI) if your heart can't handle this extra work. ??? Lose any extra weight. The more extra pounds you have, theharder your heart has to work to pump blood through your body. Extra weight can also raise your risk for high blood pressure and diabetes. These diseases can further damage your blood vessels and heart. ??? Don't drink alcohol. Drinking alcohol may make your cardiomyopathy worse. Alcohol breaks down the heart tissue. This affects how well your heart pumps. This can be very serious in people with alcoholism. ??? Eat less salt. Salt is the main source of sodium in our diet. Too much sodium can make cardiomyopathy symptoms worse. Sodium causes your body to retain water. This extra fluid makes your heart work harder. Your healthcare provider may tell you to limit how much sodium you have. ?? Keep track of your weight Rapid weight gain may mean that you are retaining fluid. This is a common sign of heart failure. Keeping track of your weight helps you notice this weight gain early. It can prevent further damage toyour heart. To keep track of your weight: ??? Weigh yourself at the same time each morning, after you pee. Wear the same thing each time. Write down your weight each day. ??? Don???t stop weighing yourself. If you forget 1 day, weigh yourself again the next morning. ??? Call your healthcare provider if you gain: o More than??2 pounds in??1day o More than??5 pounds??in??1 week o Or whatever weight gain you were told to report by your healthcare provider ?? Call your healthcare provider Call your healthcare provider if you:? Have mild dizzy spells ??? Notice new symptoms from your medicine ??? Start coughing again, especially if the sputum is frothy or foamy. ??? Have mild trouble breathing, especially while at rest or lying down. Or if you have trouble breathing during exercise or even while walking short distances. ??? Get tired faster ??? Start peeing less often ??? Findthat your feet or ankles swell more than normal. Or if you have swelling in your legs or belly. Or if the veins in your neck stick out more than normal. You may notice it's harder to get into your shoes or pants because of swelling and bloating. ?? Call 911 Call 911 right away if any of these occur: ??? Pain, tightness, or pressure in your chest, arm, jaw, or back ??? Abnormally fast pulse or pounding heartbeat ??? Major trouble breathing, either at rest or with activity ??? Fainting or severe dizziness ?? Last Reviewed Date: 2023 ?? [id number] [employer]. All rights reserved. This information is not intended as a substitute for professional medical care. Always follow your healthcare professional's instructions. ?? * Event Display: Hemodynamic Procedure Report Authored Date: [id number] * Kit Batres: VERIFY, PERFORM, SIGN Event Display: Cardiac Rehab Note Authored Date: [id number] Patient: KEVIN RODRÍGUEZ Age: 83 years Sex: Male : 1940 Associated Diagnoses: None Author: Kit Batres Diagnosis Cardiac Rehab Diagnosis: Pt currently NPO for Cardiac Cath, will F/U post procedure.. Admission evaluation note * Linn DOS SANTOS, [facility]: PERFORM Event Display: Admission Note Authored Date: [id number] Patient: ??KEVIN RODRÍGUEZ ? Age:??83 Years?Sex:??Male?:??1940?? Chief Complaint/Reason for Consultation Sudden onset chest pain this morning History of Present Illness Mr. Rodríguez is an 83-year-old male with past medical history of atrial flutter status post ablation, pacemaker, amyloidosis, BPH, hypertension, hyperlipidemia, ILD, PVD, renal artery stenosis, CAD with 3 prior stents, CKD stage 3a,??who presents to the ED today complaining of chest pain.?? Patient reports he had sudden onset chest pain this morning, which is located across his upper chest, and did not radiate.?? It started??after he had gotten out of bed, when he was about to take his medications,was initially severe rated 10/10, and described as burning.?? He also endorses a few weeks of progressively worsening shortness of breath.?? Due to the chest pain, his called 911.?? He was [id number] aspirin by EMS without improvement in pain. On arrival in the ED, vital signs included hypertension with blood pressure 196/73.?? Laboratory studies were obtained, with initial troponin 64, repeat 144.?? BNP was also elevated, 4256.?? Potassium was slightly low, 3.4.?? Creatinine was 1.45, at baseline.?? EKG showed paced rhythm with possiblelateral infarct.?? Chest x-ray showed no acute abnormality, CTA of the chest and abdomen showed no acute aortic syndrome, did show proximal occlusion of the SMA, occluded mid left ureteral artery, evidence of pulmonary edema, and multiple cystic lesions in the atrophic pancreas.?? Patient was diagnosed with NSTEMI, and started on a heparin drip.?? He was given nitro with some improvement in his chest pain.?? Request was made for admission. At the time of my evaluation, patient was resting comfortably.?? He continues to have chest pain rated 5/10 after 3 doses of nitro.?? He also endorses lightheadedness/dizziness on standing, cough, shortness of breath, nausea, and urinary frequency.?? He has been compliant with his medications, but did not take them this morning due to being brought to the hospital.? Review of Systems General: Endorses lightheadedness, dizziness HEENT:?? Denies headache, runny nose, sore throat Cardiac:??Endorses chest pain, denies palpitations Respiratory:??Endorses SOB and cough Abdomen:??Endorses nausea,??denies vomiting, abdominal pain, diarrhea, or constipation :??Endorses urinary frequency, denies hematuria or dysuria Skin:?? Denies rashes or wounds Objective Measurements?? Height: 180 cm (02/14/24) Weight: 78.2 kg (02/14/24) Dry Weight: 78.2 kg (02/14/24) Body Mass Index: 24.14 kg/m2 (02/14/24) ? Vital Signs?? Temperature: 98.4 DegF (02/14/24 14:42:00) Temperature Route: Oral (02/14/24 14:42:00) Pulse Rate: 60 bpm (02/14/24 15:45:00) Respiratory Rate: 19 br/min (02/14/24 15:45:00) Systolic Blood Pressure:??160 mm Hg??High (02/14/24 15:45:00) Diastolic Blood Pressure: 75 mm Hg (02/14/24 15:45:00) Blood pressure sites: Arm, right (02/14/24 15:45:00) Mean Arterial Pressure: 103 mm Hg (02/14/24 15:45:00) Pulse Pressure: 85 mm Hg (02/14/24 15:45:00) Oxygen Saturation: 97 % (02/14/24 15:45:00) Liters per Minute: 2 L/min (02/14/24 15:45:00) Mode of Delivery (Oxygen): Nasal cannula (02/14/24 15:45:00) Early Warning Score: 0 (02/14/24 16:11:00) ? Intake/Output? No Data Available ?? Precautions No Precautions documented.? Physical Exam Physical Exam: General: No apparent distress, appears stated age, awake, alert, cooperative with exam, hard of hearing Head/Neck/Throat: Normocephalic, atraumatic, moist mucous membranes Eyes: Sclera anicteric, EOMI Thorax: Slightly coarse to auscultation bilaterally, no crackles noted,??no respiratory distress Cardiovascular: Regular rate and rhythm, systolic murmur present, no peripheral edema Abdomen: Soft, nontender, non-distended, normoactive bowel sounds Musculoskeletal: No gross bony deformities Skin: No rashes or wounds noted on exposed skin Neurologic: Alert and oriented x3, no focal neurological deficits, no facial droop Psychiatric: Normal affect Assessment/Plan Diagnoses 1. ??NSTEMI (non-ST elevated myocardial infarction) ??(I21.4) 2. ??Hypertensive urgency ??(I16.0) 3. ??HFrEF - heart failure with reduced ejection fraction ??(I50.20) 4. ??Amyloidosis ??(E85.9) 5. ??Cardiomyopathy ??(I42.9) 6. ??CKD stage 3 ??(N18.30) 7. ??CAD - Coronary artery disease ??(I25.10) 8. ??Hyperlipidemia ??(E78.5) 9. ??Atrial flutter ??(I48.92) 10. ??Interstitial lung disease ??(J84.9) 11. ??History of BPH ??(Z87.438) ?? Assessment:??83-year-old male with past medical history of atrial flutter status post ablation, pacemaker, amyloidosis, BPH, hypertension, hyperlipidemia, ILD, PVD, renal artery stenosis, CAD with 3 prior stents, CKD stage 3a,??who presents to the ED today complaining of chest pain, found to have an NSTEMI ?? NSTEMI (non-ST elevated myocardial infarction) (I21.4) CAD - Coronary artery disease (I25.10) ? Patient presented with??chest pain, with troponin increasing from??64, to 144 He was diagnosed with NSTEMI He was started on heparin drip in the ED He has had 3 doses of nitro, and continues to have mild chest pain He is followed by [facility] cardiology, Dr. Tristan:??Consult was placed, and I spoke with Dr. Koehler??who recommended n.p.o. after midnight for possible left heart cath tomorrow -Heparin drip -Nitropaste??0.5 inches??ordered for chest pain??and??blood pressure -Aspirin 81 mg daily, Plavix 75 mg daily -Atorvastatin 80 mg daily -Cardiac telemetry -Continue beta-wilder -N.p.o. after midnight -Echocardiogram -Trend troponin, check morning CBC, BMP, magnesium, lipid panel,??A1c Appreciate cardiology recommendations ?Beta-Wilder Ordered:??Beta-Wilder Ordered ?Aspirin Ordered:??Aspirin Ordered ?Statin Ordered:??Statin Ordered ?? Hypertensive urgency (I16.0):??Blood pressure elevated, 196/73??on arrival Remains high at this time, likely due to patient not taking his morning medications, in conjunctionwith??NSTEMI as above Will give metoprolol 100 mg??now, as he did not take his morning??dose Will place??0.5 inches??topical nitroglycerin Continue home??amlodipine 2.5 mg daily,??metoprolol 100 mg daily??tomorrow ?? HFrEF - heart failure with reduced ejection fraction (I50.20):??Patient with??HFrEF, most recent echo in our system from 2019 showed LVEF 25 to 30% His BNP is slightly elevated today,??4255 He received??1 dose IV Lasix in the ED, 40 mg On exam, there are no crackles in the lungs, and no peripheral edema We will continue home Bumex 2 mg in the morning, 1 mg in the evening ?? Amyloidosis (E85.9) Cardiomyopathy (I42.9) ? We do not carry patient's home??Vyndamax,??61 mg,??will request family to bring this in ?? CKD stage 3 (N18.30):??Renal function at baseline, creatinine today 1.45 History of CKD stage IIIa Trend BMP ?? Atrial flutter (I48.92):??Status post ablation, currently with pacemaker Not on anticoagulation at home ?? Interstitial lung disease (J84.9):??Continue??albuterol as needed ?? History of BPH (Z87.438):??Continue finasteride 5 mg daily ?? Hyperlipidemia (E78.5):??Continue atorvastatin 80 mg daily Check morning lipid panel ?? VTE Prophylaxis:??Heparin drip as above ?VTE Prophylaxis Assessment:??Excluded from VTE prophylaxis measure ?? Discharge Planning:??Pending cardiology recommendations,??management of NSTEMI ?? Code Status:??Full CODE STATUS, confirmed with patient and family at bedside ?Order Code Status:??Code Status Ordered ?? Patient's , and son Gonzalez ([phone]) were at bedside, their questions were answered and plan was discussed. ?? I personally spent a total of??85 minutes reviewing the chart, notes, images, and labs, speakingwith nurses, examining and interviewing the patient, placing orders, reconciling medications, and documenting in the medical record. ? Histories Allergies Allergies ?(Active and Proposed Allergies Only) No Known Medication Allergies? (Severity: Unknown severity, Onset: Unknown) Other Environmental Allergy? (Severity: Unknown severity, Onset: Unknown) ?Comments: pak and perfumes ? Past Medical History/Problem List Active Problems(19) Amyloidosis Atrial flutter Bicuspid aortic valve CAD - Coronary artery disease Cardiac device in situ Cardiomyopathy CKD stage 3a Gout HFrEF - heart failure with reduced ejection fraction History of BPH Hyperlipidemia Hypertension Interstitial lung disease MSSA bacteremia Olecranon bursitis, left elbow PVD - peripheral vascular disease Renal artery stenosis Spinal stenosis Thoracic aortic aneurysm ? Past Surgical History Cardiac pacemaker procedure Laparoscopic cholecystectomy Ablation of atrioventricular node Hip replacement Cervical spinal fusion Carpal tunnel release ? Social History Alcohol Details:??Use: Current. ??Frequency: 1-2 times per week. ??Type: Wine. Employment/School Details:??Status: Retired. 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 Exercise Details:??Self assessment: Fair condition. Home/Environment Details:??Living situation: Home/Independent. ??Lives with: Spouse. Substance Abuse Details:??Use: Never. Tobacco Details:??Never smoker ? Family History Mother: Congestive heart failure Father: Asthma Sister: Diabetes mellitus type II Brother: Diabetes mellitus type II; Dialysis care ? Medications Home Medications Acetaminophen (Tylenol Extra Strength 500 mg oral tablet)?2?tab(s)?1,000?Milligram?By Mouth?Every 4 hours?as needed?for pain?before bed Albuterol (albuterol CFC free 90 mcg/inh inhalation aerosol)?2?puff(s)?Inhalation?Every6 hours?as needed?for wheezing?4 times a day Albuterol (albuterol 0.083% inhalation solution)?3?Milliliter?2.5?Milligram?Neb?2times a day?Every 6 hours Allopurinol (allopurinol 300 mg oral tablet)?300?Milligram?1?tablet?By Mouth?Daily Amlodipine (amLODIPine 2.5 mg oral tablet)?1?tab(s)?2.5?Milligram?By Mouth?Daily Atorvastatin (atorvastatin 80 mg oral tablet)?80?Milligram?By Mouth?Daily at bedtime Bumetanide (bumetanide 1 mg oral tablet)?1?Milligram?1?tablet?By Mouth?2 times a day?2 tablets in am, 1 tablet in pm Calcitriol (calcitriol 0.25 mcg oral capsule)?45 each, 0 Refill(s), TAKE 1 CAPSULE BY MOUTH EVERY OTHER DAY Clopidogrel (clopidogrel 75 mg oral tablet)?90 each, 0 Refill(s), TAKE 1 TABLET BY MOUTH EVERY DAY Finasteride (finasteride 5 mg oral tablet)?1?tab(s)?5?Milligram?By Mouth?Daily Metoprolol (Metoprolol Succinate ER 50 mg oral tablet, extended release)?100?Milligram?2?tablet?By Mouth?Daily?TAKE 2 TABLETS BY MOUTH EVERY DAY tafamidis (Vyndamax 61 mg oral capsule)?1?capsule?61?Milligram?By Mouth?Daily?for 10?Days?swallow whole ? Inpatient Medications Medications (24) Active SCHEDULED: (12) Allopurinol 300 mg Tablet (allopurinol 300 mg oral tablet) ??300 mg, By Mouth, Daily Amlodipine 5 mg Tablet (amLODIPine 5 mg oral tablet) ??2.5 mg, By Mouth, Daily Aspirin 81 mg EC Tablet (aspirin 81 mg oral delayed release tablet) ??81 mg, By Mouth, Daily Atorvastatin 80 mg Tablet (atorvastatin 80 mg oral tablet) ??80 mg, By Mouth, Daily at bedtime Bumetanide 1 mg Tablet (bumetanide 1 mg oral tablet) ??1 mg, By Mouth, Daily at supper Bumetanide 1 mg Tablet (Bumex Tablet) ??2 mg, By Mouth, Daily Clopidogrel 75 mg Tablet (clopidogrel 75 mg oral tablet) ??75 mg, By Mouth, Daily Finasteride 5 mg Tablet (finasteride 5 mg oral tablet) ??5 mg, By Mouth, Daily Metoprolol 100 mg Tablet (metoprolol 100 mg oral tablet) ??100 mg, By Mouth, Once Metoprolol 100 mg XL Tablet (Metoprolol Succinate ER 100 mg oral tablet, extended release) ??100 mg, By Mouth, Daily NaCl 0.9% Flush 3ml (NaCL 0.9% Flush) ??3 mL, IV Push, Every 8 hours Nitroglycerin 2% Oint UD (Nitroglycerin 2% Topical) ??0.5 inches, Topically, Once CONTINUOUS: (1) Heparin 25,000 units / 250 mL D5W premix 25,000 units [12 units/kg/hr] + D5%W Premixed IV 250 mL (Heparin 25,000 units in 250 mL Premix 25,000 units [12 units/kg/hr] + D5%W Premixed IV 250 mL) ??250 mL, IV Infusion, 9.38 mL/hr PRN: (11) Acetaminophen 325 mg Tablet (Acetaminophen Tablet) ??650 mg, By Mouth, Every 4 hours Albuterol 0.083% Inhalation Solution (Albuterol 0.083% inhalation [place]) ??2.5 mg 3 mL, BAND Nebulizer, Every 4 hours Docusate Sodium 100 mg Capsule (Docusate Sodium Capsule) ??100 mg 1 capsule, By Mouth, 2 times a day Heparin 5000 units/mL Inj (1 mL) (Heparin Inj) ??4,500 units 0.9 mL, IV Push, Every 6 hours Heparin 5000 units/mL Inj (1 mL) (Heparin Inj) ??2,500 units 0.5 mL, IV Push, Every 6 hours Melatonin 3 mg Tablet (Melatonin Tablet) ??3 mg, By Mouth, Daily at bedtime NaCl 0.9% Flush 3ml (NaCL 0.9% Flush) ??3 mL, IV Push, Every 8 hours Nitroglycerin 0.4 mg Sublingual Tablet (nitroglycerin 0.4 mg sublingual tablet) ??0.4 mg, Sublingual, Every 5 minutes Polyethylene Glycol 17 Gm Powder (MiraLax Powder) ??17 Gm 1 pack/packet, By Mouth, Daily Senna Tablet ??8.6 mg 1 tablet, By Mouth, 2 times a day Simethicone 80 mg Chewable Tablet (Simethicone Tablet) ??80 mg, Chew, 3 times a day ? Results Recent Labs BLOOD BANK Blood Type O Positive ()?? 02/14/2024 09:07 Antibody Screen Negative ()?? 02/14/2024 09:07 ?? BLOOD COUNT & DIFF WBC 7.0 k/mm3 ()?? 02/14/2024 09:11 RBC 3.70 m/mm3 (Low)?? 02/14/2024 09:11 Hgb 11.3 Gm/dL (Low)?? 02/14/2024 09:11 Hct 33.8 % (Low)?? 02/14/2024 09:11 MCV 91.4 femtoliters ()?? 02/14/2024 09:11 MCH 30.5 pg ()?? 02/14/2024 09:11 MCHC 33.4 Gm/dL ()?? 02/14/2024 09:11 Platelet Count 174 k/mm3 ()?? 02/14/2024 09:11 RDW-SD 50.1 femtoliters (High)?? 02/14/2024 09:11 MPV 9.7 femtoliters ()?? 02/14/2024 09:11 Nucleated RBC (Automated) 0.0 #/100 WBC'S ()?? 02/14/2024 09:11 Abs. NRBC 0.0 k/mm3 ()?? 02/14/2024 09:11 Abs. Neut 5.3 k/mm3 ()?? 02/14/2024 09:11 Abs. Lymph 1.1 k/mm3 ()?? 02/14/2024 09:11 Abs. [place] 0.5 k/mm3 ()?? 02/14/2024 09:11 Abs. Eo 0.1 k/mm3 ()?? 02/14/2024 09:11 Abs. Baso 0.0 k/mm3 ()?? 02/14/2024 09:11 Neut % 75.8 % ()?? 02/14/2024 09:11 Lymph % 16.0 % ()?? 02/14/2024 09:11 [place] % 6.7 % ()?? 02/14/2024 09:11 Eos % 1.1 % ()?? 02/14/2024 09:11 Baso % 0.3 % ()?? 02/14/2024 09:11 Imm Gran 0.1 % ()?? 02/14/2024 09:11 Abs. Imm Gran 0.0 k/mm3 ()?? 02/14/2024 09:11 ?? CARDIAC Nt-Probnp 4256 pg/mL (High)?? 02/14/2024 09:11 High Sensitivity Troponin (HSTnT) 144 ng/L (Critical)?? 02/14/2024 11:57 ?? CHEM GENERAL Sodium 144 mmol/L ()?? 02/14/2024 09:11 Potassium 3.4 mmol/L (Low)?? 02/14/2024 09:11 Chloride 105 mmol/L ()?? 02/14/2024 09:11 Bicarbonate Level 23 mmol/L ()?? 02/14/2024 09:11 Anion Gap 16 ()?? 02/14/2024 09:11 Glucose Level 150 mg/dL (High)?? 02/14/2024 09:11 Glucose, POC 153 mg/dL (High)?? 02/14/2024 16:01 BUN 36 mg/dL (High)?? 02/14/2024 09:11 Creatinine-Blood 1.45 mg/dL (High)?? 02/14/2024 09:11 Estimated GFR Creatinine 47 ML/MIN/1.73 M2 ()?? 02/14/2024 09:11 Calcium 9.4 mg/dL ()?? 02/14/2024 09:11 ?? COAG INR 1.0 ()?? 02/14/2024 09:11 Protime (PT) 11.1 seconds ()?? 02/14/2024 09:11 APTT 27.9 seconds ()?? 02/14/2024 11:57 ?? ENDOCRINE/TUMOR MARKER TSH 2.35 uIU/mL ()?? 02/14/2024 09:11 ?? URINE OTHER Est Creatinine Clearance 39.51 mL/min ()?? 02/14/2024 10:08 ? Image ?XR Chest Portable??02/14/2024 09:20 by Davi Shukla ?IMPRESSION: No acute abnormality. ?12 Lead ECG??02/14/2024 09:05 by Alex MCMAHON, Emanuel Guevara ?CT Angio Abdomen??02/14/2024 09:52 by Tiarra Steele ?IMPRESSION: 1. No evidence of acute aortic syndrome. 2. Proximal occlusion of the SMA. The celiac axis and BEST remain patent. 3. Occluded main left renal artery. 4. Evidence of pulmonary edema. 5. Multiple cystic lesions in an atrophic pancreas. Further characterization with MRI recommended. ?CT Angio Chest??02/14/2024 09:52 by Tiarra Steele ?IMPRESSION: 1. No evidence of acute aortic syndrome. 2. Proximal occlusion of the SMA. The celiac axis and BEST remain patent. 3. Occluded main left renal artery. 4. Evidence of pulmonary edema. 5. Multiple cystic lesions in an atrophic pancreas. Further characterization with MRI recommended. ?12 Lead ECG??02/14/2024 11:59 by Bhavesh Shah MD ? EKG study * Event Display: ECG 12-Lead Authored Date: Please click on pdf link to open report * Event Display: ECG 12-Lead Authored Date: Ventricular Rate: 62 BPM QRS Duration: 158 ms Q-T Interval: 500 ms QTC Calculation(Bazett): 507 ms R [place]: 141 degrees T [place]: 138 degrees Electronic ventricular pacemaker Right axis deviation Non-specific intra-ventricular conduction block Abnormal ECG When compared with ECG of 15-Feb-2024 09:24, No significant change was found Confirmed by LLIIAM HANDY MD ([id number]) on 02/17/2024 2:51:25 PM [place]: LILIAM HANDY MD * Event Display: EKG Authored Date: * Event Display: ECG 12-Lead Authored Date: Please click on pdf link to open report * Event Display: ECG 12-Lead Authored Date: Ventricular Rate: 61 BPM QRS Duration: 158 ms Q-T Interval: 498 ms QTC Calculation(Bazett): 501 ms R [place]: 151 degrees T [place]: 135 degrees Ventricular-paced rhythm Abnormal ECG When compared with ECG of 15-Feb-2024 07:33, No significant change Confirmed by BOONE GROVES ([id number]) on 02/15/2024 2:45:56 PM [place]: BOONE GROVES * Event Display: ECG 12-Lead Authored Date: [id number] Please click on pdf link to open report * Event Display: ECG 12-Lead Authored Date: [id number] Ventricular Rate: 63 BPM QRS Duration: 156 ms Q-T Interval: 488 ms QTC Calculation(Bazett): 499 ms R [place]: 143 degrees T [place]: 127 degrees Ventricular-paced rhythm Abnormal ECG When compared with ECG of 14-Feb-2024 14:48, No significant change Confirmed by BHAVESH SHAH MD ([id number]) on 02/15/2024 1:43:58 PM [place]: BHAVESH SHAH MD Heart * Event Display: Echocardiogram - Complete Authored Date: [id number] Transthoracic Echocardiography Report (TTE) Patient Demographics Patient Name KEVIN RODRÍGUEZ Date of Study 02/16/2024 Corporate Gender Male Facility Race .[id number] Ethnicity Date of 1940 Height: 70.87 inches Age 83 year(s) Weight: 171.96 pounds Accession Number [id number] BSA: 1.98 m2 Room Number [id number] BMI: 24.07 kg/m2 Referring Linn DOS SANTOS Interpreting Gavin Benjamin Physician Physician It Support Technician Koby Hoskins [facility] Indications NSTEMI. Clinical History HTN Diabetes. CAD Amyloid Study Data Type of Study TTE procedure:Echo Complete-(Doppler, Colorflow) with Contrast, Strain. Procedure Information:Definity was administered by Microcomputer Support Specialist . Study Date02/16/2024 Start Time: 01:53 PM [place] [facility] [place] Status: Echo lab Patient Status: Routine Technical Quality: Fair due to body habitus. Blood Pressure:118/59 mmHg EKG: Within normal limits HR: 67 bpm Contrast Medium: Definity. Amount - 2 ml Allergies - No known allergies. 2D Measurements LV Diastolic Dimension: 5.5 cm LV Systolic Dimension: 4.4 cm LV Septum Diastolic: 1.1 cm LV PW Diastolic: 1.2 cm AO Root Dimension: 3.6 cm LA Dimension: 5.2 cm LVOT Stroke Volume: 57.31 ml LVOT: 2.3 cm Stroke Volume Index28.94 ml/m2 Ascending Aorta:3.4 cm Cardiac Index:1.94 l/min/m2 Doppler Measurements AV Peak Velocity: 189 cm/s MV Peak E-Wave: 85 cm/s AV Peak Gradient: 14.29 mmHg MV Peak A-Wave: 73.9 cm/s AV Mean Gradient: 7 mmHg MV E/A Ratio: 1.15 AV VTI:37.7 cm MV P1/2t: 51 msec LVOT Peak Velocity: 63.1 cm/s LVOT VTI13.8 cm MV Deceleration Time: 175 msec AV Area (Continuity):1.52 cm2 MV Area (PHT): 4.31 cm2 AV P1/2t: 514 msec PV Peak Velocity: 67 cm/s PV Peak Gradient: 1.8 mmHg Cardiac Anatomy Left Ventricle/Interventricular Septum The left ventricle is normal in size and has mild concentric left ventricular hypertrophy. Systolic function is moderately reduced with ejection fraction of 35-40% by biplane Nair's; abnormal average global longitudinal strain of -8.0%. There is global hypokinesis with mild hypokinesis of basal inferior and inferoseptal oliveira. Unable to assess diastolic function due to atrial fibrillation. Left Atrium/Interatrial Septum The left atrium is severely dilated. Aortic Valve The aortic valve is calcified and appears to be bicuspid. No aortic stenosis. There is mild aortic regurgitation (pressure half-time 515 ms). Mitral Valve The mitral valve is normal in structure and function. There is no mitral stenosis. There is trace mitral regurgitation. Aorta The ascending aorta and aortic root are normal in size. Right Ventricle The right ventricle is dilated with reduced systolic function. Right Atrium The right atrium is severely dilated. Pulmonic Valve The pulmonic valve is normal in structure and function. There is trace pulmonic regurgitation. Tricuspid Valve The tricuspid valve is normal in structure and function. There is trace regurgitation. Pumonary Artery An accurate pulmonary artery pressure could not be obtained. Venous Structures The inferior vena cava is dilated at 2.3 cm with poor inspiratory collapse consistent with elevated right atrial pressures. Pericardium/Extracardiac There is no pericardial effusion. Summary -The left ventricle is normal in size and has mild concentric left ventricular hypertrophy. Systolic function is moderately reduced with ejection fraction of 35-40% by biplane Nair's; abnormal average global longitudinal strain of -8.0%. There is global hypokinesis with mild hypokinesis of basal inferior and inferoseptal oliveira. Unable to assess diastolic function due to atrial fibrillation. -The right ventricle is dilated with reduced systolic function. -Severe biatrial enlargement. -The aortic valve is calcified and appears to be bicuspid. No aortic stenosis. There is mild aortic regurgitation (pressure half-time 515 ms). -There is trace mitral regurgitation. -There is trace pulmonic and tricuspid regurgitation. -The ascending aorta and aortic root are normal in size. -An accurate pulmonary artery pressure could not be obtained due to insufficient TR jet. -The inferior vena cava is dilated at 2.3 cm with poor inspiratory collapse consistent with elevated right atrial pressures. -There is no pericardial effusion. Comparison Compared to the study from October 19, 2019, -The LV wall thickness appears to have improved. -The LV systolic function has marginally improved. -The severity of RV failure is unchanged. -The IVC appears dilated. Signature * Event Display: Echocardiogram - Complete Authored Date: [id number] Cardiology * Event Display: Cardiac Rhythm Strips Authored Date: * Event Display: Cardiac Rhythm Strips Authored Date: * Event Display: Cardiac Rhythm Strips Authored Date: Hospital Progress note * Misa BRUNO, Hellen Pitts: PERFORM Event Display: Progress Note Hospital Authored Date: Patient: ??KEVIN RODRÍGUEZ ? Age:??83 Years?Sex:??Male?:??1940?? 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 ?? Patient presented to the emergency room with complaints of sudden onset chest discomfort, he was found to have elevated troponin and BNP.?? EKG with possible ischemic changes, subsequently he was started on a heparin drip. He underwent cardiac catheterization on February 15.?? This revealed mild diffuse disease of the left main and LAD.?? Previous stent in the LAD noted to be patent.?? There was a large thrombus in the distal subsection of the mid LAD.?? Subsequently, he underwent IVUS guided successful PCI of the mid to distal LAD with mechanical thrombectomy.?? IVUS assessment of the LAD indicated that there was no plaque rupture and that this is most likely a cardioembolic event.?? Echocardiogram was recommended to rule out LV thrombus.? Upon evaluation the patient is sitting up comfortably in bed.?? His right radial access site is noted to be ecchymotic however has good CMS.?? He continues on a heparin drip.?? He denies any recurrent chest pain, pressure, worsening shortness of breath, dizziness, lightheadedness, presyncope or syncope. . Review of Systems A full review of systems was completed and is otherwise negative except as mentioned in HPI Allergies Allergies ?(Active and Proposed Allergies Only) No Known Medication Allergies? (Severity: Unknown severity, Onset: Unknown) Other Environmental Allergy? (Severity: Unknown severity, Onset: Unknown) ?Comments: pak and perfumes ? Past Medical History Active Problems(19) Amyloidosis Atrial flutter Bicuspid aortic valve CAD - Coronary artery disease Cardiac device in situ Cardiomyopathy CKD stage 3 Gout HFrEF - heart failure with reduced ejection fraction History of BPH Hyperlipidemia Hypertension Interstitial lung disease MSSA bacteremia Olecranon bursitis, left elbow PVD - peripheral vascular disease Renal artery stenosis Spinal stenosis Thoracic aortic aneurysm ? Past Surgical History Cardiac pacemaker procedure Laparoscopic cholecystectomy Ablation of atrioventricular node Hip replacement Cervical spinal fusion Carpal tunnel release ? Social History Alcohol Details:??Use: Current. ??Frequency: 1-2 times per week. ??Type: Wine. Employment/School Details:??Status: Retired. 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 Exercise Details:??Self assessment: Fair condition. Home/Environment Details:??Living situation: Home/Independent. ??Lives with: Spouse. Substance Abuse Details:??Use: Never. Tobacco Details:??Never smoker ? Family History Mother: Congestive heart failure Father: Asthma Sister: Diabetes mellitus type II Brother: Diabetes mellitus type II; Dialysis care ? Objective Vital Signs?? Temperature: 97.3 DegF (02/17/24 12:23:00) Temperature Route: Oral (02/17/24 12:23:00) Pulse Rate: 76 bpm (02/17/24 12:23:00) Respiratory Rate: 18 br/min (02/17/24 12:23:00) Systolic Blood Pressure: 125 mm Hg (02/17/24 12:23:00) Diastolic Blood Pressure: 66 mm Hg (02/17/24 12:23:00) Blood pressure sites: Arm, left (02/17/24 12:23:00) Mean Arterial Pressure: 86 mm Hg (02/17/24 12:23:00) Pulse Pressure: 59 mm Hg (02/17/24 12:23:00) Oxygen Saturation: 98 % (02/17/24 12:23:00) Mode of Delivery (Oxygen): Room air (02/17/24 12:23:00) Early Warning Score: 2 (02/17/24 12:33:24) ? Intake/Output? 02/13 12:08 02/16 07:00 02/15 07:00 02/14 07:00 02/13 07:00 ?? 02/16 14:05 02/16 14:05 02/16 06:59 02/15 06:59 02/14 06:59 Intake ?140.4 ? 28.1 ?112.3 ?0 ?0 Output ?925 ?350 ?200 ?375 ?0 Net Total ? -784.6 ? -321.9 ?-87.7 ? -375 ?0 ? Physical Exam General appearance: WDWN, no acute distress, resting comfortably?? HEENT: NCAT, negative JVD, carotid pulses are +2 bilaterally without carotid bruit Respiratory: easy respiratory effort, lungs are clear to auscultation Cardiac: S1S2, heart rate regular, no murmurs/heaves/rubs/gallops Abdomen round, soft, non-tender, +bowel sounds x4 quadrants, no HSM appreciated?? Extremities: without edema Pulses: radial and pedal bilaterally +2 Neurologic: alert and oriented x3 Mood and Affect: calm Integument no rashes or changes : deferred ?? Tele:??[employer] 60 _ Inpatient Medications Medications (24) Active SCHEDULED: (12) Allopurinol 300 mg Tablet (allopurinol 300 mg oral tablet) ??300 mg, By Mouth, Daily Amlodipine 5 mg Tablet (amLODIPine 5 mg oral tablet) ??2.5 mg, By Mouth, Daily Apixaban 2.5 mg Tablet (Apixaban Tablet) ??2.5 mg, By Mouth, 2 times a day Aspirin 81 mg EC Tablet (aspirin 81 mg oral delayed release tablet) ??81 mg, By Mouth, Daily Atorvastatin 80 mg Tablet (atorvastatin 80 mg oral tablet) ??80 mg, By Mouth, Daily at bedtime Bumetanide 1 mg Tablet (bumetanide 1 mg oral tablet) ??1 mg, By Mouth, Daily at supper Bumetanide 1 mg Tablet (Bumex Tablet) ??2 mg, By Mouth, Daily Finasteride 5 mg Tablet (finasteride 5 mg oral tablet) ??5 mg, By Mouth, Daily Metoprolol 100 mg XL Tablet (Metoprolol Succinate ER 100 mg oral tablet, extended release) ??100 mg, By Mouth, Daily NaCl 0.9% Flush 3ml (NaCL 0.9% Flush) ??3 mL, IV Push, Every 8 hours NaCl 0.9% Flush 3ml (NaCL 0.9% Flush) ??3 mL, IV Push, Every 8 hours Nitroglycerin 2% Oint UD (Nitroglycerin 2% Topical) ??1 inches, Topically, Every 6 hours CONTINUOUS: (1) Sodium Chloride 0.9% 1000 mL [1.5 mL/kg/hr] (Sodium Chloride 0.9% Normalized 1000 mL [1.5 mL/kg/hr]) ??1,000 mL, IV Infusion, 117 mL/hr PRN: (11) Acetaminophen 325 mg Tablet (Acetaminophen Tablet) ??650 mg, By Mouth, Every 4 hours Albuterol 0.083% Inhalation Solution (Albuterol 0.083% inhalation dayton) ??2.5 mg 3 mL, BAND Nebulizer, Every 4 hours Aspirin 81 mg Chew Tablet (Aspirin Chew Tablet) ??324 mg, Chew, Once Docusate Sodium 100 mg Capsule (Docusate Sodium Capsule) ??100 mg 1 capsule, By Mouth, 2 times a day Melatonin 3 mg Tablet (Melatonin Tablet) ??3 mg, By Mouth, Daily at bedtime NaCl 0.9% Flush 3ml (NaCL 0.9% Flush) ??3 mL, IV Push, Every 8 hours NaCl 0.9% Flush 3ml (NaCL 0.9% Flush) ??3 mL, IV Push, Every 8 hours Nitroglycerin 0.4 mg Sublingual Tablet (nitroglycerin 0.4 mg sublingual tablet) ??0.4 mg, Sublingual, Every 5 minutes Polyethylene Glycol 17 Gm Powder (MiraLax Powder) ??17 Gm 1 pack/packet, By Mouth, Daily Senna Tablet ??8.6 mg 1 tablet, By Mouth, 2 times a day Simethicone 80 mg Chewable Tablet (Simethicone Tablet) ??80 mg, Chew, 3 times a day ? Results CBC, CBC w/Diff?? No qualifying data available. ?? BMP, Mg, and Phos?? No qualifying data available. ?? Cardiology Labs Nt-Probnp:??4256 pg/mL??High (02/14/24 09:11:00) High Sensitivity Troponin (HSTnT):??2186 ng/L??Critical (02/16/24 01:00:00) High Sensitivity Troponin (HSTnT):??2964 ng/L??Critical (02/15/24 11:36:00) High Sensitivity Troponin (HSTnT):??2933 ng/L??Critical (02/15/24 06:22:00) Lipids: Cholesterol: 94 mg/dL (02/15/24 06:22:00) Triglycerides: 47 mg/dL (02/15/24 06:22:00) HDL Cholesterol:??37 mg/dL??Low (02/15/24 06:22:00) LDL Cholesterol: 48 mg/dL (02/15/24 06:22:00) Non HDL Cholesterol: 57 mg/dL (02/15/24 06:22:00) ? 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 ?? Patient presented to the emergency room with complaints of sudden onset chest discomfort, he was found to have elevated troponin and BNP.??EKG with possible ischemic changes, subsequently he was started on a heparin drip. He underwent cardiac catheterization on February 15.??This revealed mild diffuse disease of the left main and LAD.??Previous stent in the LAD noted to be patent.??There was a large thrombus in the distal subsection of the mid LAD.??Subsequently, he underwent IVUS guided successful PCI of the mid to distal LAD with mechanical thrombectomy.??IVUS assessment of the LAD indicated that there was no plaque rupture and that this is most likely a cardioembolic event.??Echocardiogram was recommended to rule out LV thrombus.? Upon evaluation the patient is sitting up comfortably in bed.??His right radial access site is noted to be ecchymotic however has good CMS.??He continues on a heparin drip.??He denies any recurrent chest pain, pressure, worsening shortness of breath, dizziness, lightheadedness, presyncope or syncope.? AP 1. CAD -Continue aspirin, statin and metoprolol ?? 2.Atrial fibrillation -Not on OAC r/t alveoli hemorrhage about 5 years ago .??Given recent cardiac catheterization with evidence of large thrombus and the likelihood of this being a cardioembolic event would strongly recommend re-trialing Eliquis for stroke reduction.??At this time the patient continues to decline.??To be discussed with Dr. Iniguez.??He will continue on heparin drip at this time. ?? 3.Amyloidosis -Continue tafamidis.??Patient continues to follow closely with [facility] ?? 4. HTN -Continue Amlodipine ?? Thank you for allowing us to participate in the care of your patient.??We will follow with the team.??Please call pager [phone] with questions or concerns. ?? Discharge Planning:? Estimated Discharge Date ? * Pablo MCMAHON, Anita: PERFORM Event Display: Progress Note Hospital Authored Date: [id number] ??I have seen and evaluated this patient in conjunction with Hellen Bynum NP.?? I have discussed the case and its management with her as documented in the note above.?? I have performed the medical decision making in its entirety.?? 83-year-old gentleman presenting with non-ST elevation RI found to have cardioembolic RI with clot thrown to the LAD.?? Patient underwent mechanical thrombectomywithout placement of stent.?? At this point, he is a high risk for future cardioembolic phenomenon especially in light of diagnosis of TTR amyloid and prior history of paroxysmal atrial fibrillation.?? In speaking to the patient (he has a pretty good handle on his past medical history) it sounds like at 1 point he just coughed up a little bit of blood and his rn care manager told him to stop Eliquis.?? My suspicion is that he had not had an arrhythmia prior to that in quite some time after an ablation and the risk-benefit ratio favored discontinuation of anticoagulation at the time.?? However now, the risk-benefit ratio greatly favors reinitiation of anticoagulation and it does not sound like his prior bleeding risk (at least based on his history and my review of his outpatient records) was that severe.?? I reviewed that he has seen a forestry instructor (Dr. Corona) at [facility] in December 2020.?? This was not for pulmonary hemorrhage but rather for suspicion of interstitial lung disease.?? He ended up having PFTs which showed a decreased DLCO.?? Ultimately it was deemed less likely that he had interstitial lung disease.?? The symptoms described were longstanding cough productive of whitish frothy phlegm every morning.?? There is no mention of hemoptysis at all.?? I suggested that he seek an outpatient second opinion with pulmonology now that we are reinitiating DOACtherapy and he continues to have cough symptoms.?? He is agreeable to initiating Eliquis which willbe started at the reduced dose of 2.5 twice daily given creatinine greater than 1.5 at baseline, age greater than 80.?? This would be in place of antiplatelet agents, not in addition to.?? He does have a known history of coronary disease and ideally we would at least have him on a baby aspirin in addition to DOAC but given questionable bleeding risk, I am okay foregoing this for now.?? Patient looks great otherwise is completely euvolemic on exam.?? We are cautiously continuing him on metoprolol at current dose add low-dose amlodipine even though, these medications are traditionally poorly tolerated with TTR amyloid.?? Continue outpatient dose of Bumex.?? Patient's son and are at the bedside at the time of my exam.?? 25 minutes spent answering all of his and his family's questions totheir satisfaction and communicating with other providers.?? Okay for discharge.?? We will arrange o utpatient follow-up. * Estela COOPER, Yerierick: PERFORM, SIGN, VERIFY, MODIFY, SIGN Event Display: Progress Note Hospital Authored Date: [id number] Patient: KEVIN RODRÍGUEZ Age: 83 years Sex: Male : 1940 Associated Diagnoses: None Author: Pricila Palmer RN Findings Problem Related to Reviewed Results: Alteration in Cardiac Function (new) : (Date Range: 02/14/2024 0:00 EST - 02/16/2024 18:45 EST). Evaluation pt A/Ox4. V paced on tele. Went for cardiac cath today. TR band removed, DSD and tegaderm placed toR wrist no bleeding or hematoma. Heparin drip running at 12u/kg/hr. pt remains safe w/ call condon w/in reach, bed locked in the lowest position, frequent rounding. For more assessments, vitals, biophysical, see CIS.. Discharge Information Rehabilitation Discharge : Rehab Discharge Index 02/15/2024 8:48 EST Comments on treatment indicated f/u Full chart review completed Yes Hospital course Hospital course * Hai Viera MD, Tamica R: MODIFY, MODIFY, MODIFY, PERFORM Event Display: Progress Note Hospital Authored Date: Patient: ??KEVIN RODRÍGUEZ ? Age:??83 Years?Sex:??Male?:??1940?? Subjective Afebrile, blood pressure 160/64 saturating 99% on 1 L supplemental oxygen Normal WBC, hemoglobin 10.6 as compared to 10.4 yesterday, normocytic Normal sodium and potassium BUN/creatinine 40/1.6 as compared to 33/1.6 Troponin 2186 as compared to 2964 yesterday total cholesterol 94 ?? Review of Systems ? Patient denies any shortness of breath, chest pain,??lightheadedness, abdominal pain, nausea, vomiting Allergies Allergies ?(Active and Proposed Allergies Only) No Known Medication Allergies? (Severity: Unknown severity, Onset: Unknown) Other Environmental Allergy? (Severity: Unknown severity, Onset: Unknown) ?Comments: pak and perfumes ? Past Medical History Active Problems(19) Amyloidosis Atrial flutter Bicuspid aortic valve CAD - Coronary artery disease Cardiac device in situ Cardiomyopathy CKD stage 3 Gout HFrEF - heart failure with reduced ejection fraction History of BPH Hyperlipidemia Hypertension Interstitial lung disease MSSA bacteremia Olecranon bursitis, left elbow PVD - peripheral vascular disease Renal artery stenosis Spinal stenosis Thoracic aortic aneurysm ? Past Surgical History Cardiac pacemaker procedure Laparoscopic cholecystectomy Ablation of atrioventricular node Hip replacement Cervical spinal fusion Carpal tunnel release ? Social History Alcohol Details:??Use: Current. ??Frequency: 1-2 times per week. ??Type: Wine. Employment/School Details:??Status: Retired. 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 Exercise Details:??Self assessment: Fair condition. Home/Environment Details:??Living situation: Home/Independent. ??Lives with: Spouse. Substance Abuse Details:??Use: Never. Tobacco Details:??Never smoker ? Family History Mother: Congestive heart failure Father: Asthma Sister: Diabetes mellitus type II Brother: Diabetes mellitus type II; Dialysis care ? Objective Measurements?? Height: 180 cm (02/16/24) Weight: 78 kg (02/15/24) Dry Weight: 78 kg (02/15/24) Body Mass Index: 24.07 kg/m2 (02/15/24) ? Vital Signs?? Temperature: 97.9 DegF (02/16/24 16:00:00) Temperature Route: Oral (02/16/24 16:00:00) Pulse Rate: 67 bpm (02/16/24 16:00:00) Respiratory Rate: 18 br/min (02/16/24 16:00:00) Systolic Blood Pressure:??151 mm Hg??High (02/16/24 16:00:00) Diastolic Blood Pressure: 62 mm Hg (02/16/24 16:00:00) Blood pressure sites: Arm, left (02/16/24 16:00:00) Mean Arterial Pressure: 92 mm Hg (02/16/24 16:00:00) Pulse Pressure: 89 mm Hg (02/16/24 16:00:00) Oxygen Saturation: 97 % (02/16/24 16:00:00) Liters per Minute: 1 L/min (02/16/24 08:26:00) Mode of Delivery (Oxygen): Room air (02/16/24 16:00:00) Early Warning Score: 2 (02/16/24 16:01:18) ? Pain Scores?? No qualifying data available. ?? Intake/Output? 02/13 12:08 02/15 07:00 02/14 07:00 02/13 07:00 02/12 07:00 ?? 02/15 17:50 02/15 17:50 02/15 06:59 02/14 06:59 02/13 06:59 Intake ?0 ?0 ?0 ?0 ?0 Output ?375 ?0 ?375 ?0 ?0 Net Total ? -375 ?0 ? -375 ?0 ?0 ? Basic ADLs Ambulatory devices needed: Cane (02/15/24) Assistance w bathing/eating/dressing: No (02/15/24) Hygiene: Assist, Partial bath, Mouth care, Skin care, Tooth brushing, Other: Bedding changed (02/16/24) Need for Assist w/ Walk/Transfer: No (02/15/24) ? Mobility & Ambulation Level Mobility & Ambulation Level Ambulatory devices needed: Cane (02/15/24) ? Physical Exam ?? Constitutional: Alert, in no distress. Eyes: Pupils are equal, round and reactive to light. Extraocular muscles intact. Respiratory: Clear to auscultation. No wheezing, rales or rhonchi. Cardiovascular: Irregular rate and rhythm Gastrointestinal: Abdomen soft, non-tender, non-distended. Normal bowel sounds. Neurologic:??awake and alert able to follow commands. Musculoskeletal:?? No gross deformities. Normal range of motion. Psychiatric: Normal mood and affect ?? _ Home Medications Acetaminophen (Tylenol Extra Strength 500 mg oral tablet)?2?tab(s)?1,000?Milligram?By Mouth?Every 4 hours?as needed?for pain?before bed Albuterol (albuterol CFC free 90 mcg/inh inhalation aerosol)?2?puff(s)?Inhalation?Every6 hours?as needed?for wheezing?4 times a day Albuterol (albuterol 0.083% inhalation solution)?Milligram?3?Milliliter?2.5?Neb?2times a day?Every 6 hours Allopurinol (allopurinol 300 mg oral tablet)?300?Milligram?1?tablet?By Mouth?Daily Amlodipine (amLODIPine 2.5 mg oral tablet)?1?tab(s)?2.5?Milligram?By Mouth?Daily Atorvastatin (atorvastatin 80 mg oral tablet)?80?Milligram?By Mouth?Daily at bedtime Bumetanide (bumetanide 1 mg oral tablet)?1?Milligram?1?tablet?By Mouth?2 times a day?2 tablets in am, 1 tablet in pm Calcitriol (calcitriol 0.25 mcg oral capsule)?45 each, 0 Refill(s), TAKE 1 CAPSULE BY MOUTH EVERY OTHER DAY Clopidogrel (clopidogrel 75 mg oral tablet)?90 each, 0 Refill(s), TAKE 1 TABLET BY MOUTH EVERY DAY Finasteride (finasteride 5 mg oral tablet)?1?tab(s)?5?Milligram?By Mouth?Daily Metoprolol (Metoprolol Succinate ER 50 mg oral tablet, extended release)?100?Milligram?2?tablet?By Mouth?Daily?TAKE 2 TABLETS BY MOUTH EVERY DAY tafamidis (Vyndamax 61 mg oral capsule)?1?capsule?61?Milligram?By Mouth?Daily?for 10?Days?swallow whole ? Inpatient Medications Medications (28) Active SCHEDULED: (12) Allopurinol 300 mg Tablet (allopurinol 300 mg oral tablet) ??300 mg, By Mouth, Daily Amlodipine 5 mg Tablet (amLODIPine 5 mg oral tablet) ??2.5 mg, By Mouth, Daily Aspirin 81 mg EC Tablet (aspirin 81 mg oral delayed release tablet) ??81 mg, By Mouth, Daily Atorvastatin 80 mg Tablet (atorvastatin 80 mg oral tablet) ??80 mg, By Mouth, Daily at bedtime Bumetanide 1 mg Tablet (bumetanide 1 mg oral tablet) ??1 mg, By Mouth, Daily at supper Bumetanide 1 mg Tablet (Bumex Tablet) ??2 mg, By Mouth, Daily Finasteride 5 mg Tablet (finasteride 5 mg oral tablet) ??5 mg, By Mouth, Daily Heparin 5000 units/mL Inj (1 mL) (Heparin Inj) ??100 units 0.02 mL, IV Push, Once Metoprolol 100 mg XL Tablet (Metoprolol Succinate ER 100 mg oral tablet, extended release) ??100 mg, By Mouth, Daily NaCl 0.9% Flush 3ml (NaCL 0.9% Flush) ??3 mL, IV Push, Every 8 hours NaCl 0.9% Flush 3ml (NaCL 0.9% Flush) ??3 mL, IV Push, Every 8 hours Nitroglycerin 2% Oint UD (Nitroglycerin 2% Topical) ??1 inches, Topically, Every 6 hours CONTINUOUS: (2) Heparin 25,000 units / 250 mL D5W premix 25,000 units [12 units/kg/hr] + D5%W Premixed IV 250 mL (Heparin 25,000 units in 250 mL Premix 25,000 units [12 units/kg/hr] + D5%W Premixed IV 250 mL) ??250 mL, IV Infusion, 9.36 mL/hr Sodium Chloride 0.9% 1000 mL [1.5 mL/kg/hr] (Sodium Chloride 0.9% Normalized 1000 mL [1.5 mL/kg/hr]) ??1,000 mL, IV Infusion, 117 mL/hr PRN: (14) Acetaminophen 325 mg Tablet (Acetaminophen Tablet) ??650 mg, By Mouth, Every 4 hours Albuterol 0.083% Inhalation Solution (Albuterol 0.083% inhalation dayton) ??2.5 mg 3 mL, BAND Nebulizer, Every 4 hours Aspirin 81 mg Chew Tablet (Aspirin Chew Tablet) ??324 mg, Chew, Once Docusate Sodium 100 mg Capsule (Docusate Sodium Capsule) ??100 mg 1 capsule, By Mouth, 2 times a day Heparin 5000 units/mL Inj (1 mL) (Heparin Inj) ??4,500 units 0.9 mL, IV Push, Every 6 hours Heparin 5000 units/mL Inj (1 mL) (Heparin Inj) ??2,500 units 0.5 mL, IV Push, Every 6 hours hydrALAZINE 20 mg/mL Inj (hydrALAZINE Inj) ??5 mg 0.25 mL, IV Push Slowly, Once Melatonin 3 mg Tablet (Melatonin Tablet) ??3 mg, By Mouth, Daily at bedtime NaCl 0.9% Flush 3ml (NaCL 0.9% Flush) ??3 mL, IV Push, Every 8 hours NaCl 0.9% Flush 3ml (NaCL 0.9% Flush) ??3 mL, IV Push, Every 8 hours Nitroglycerin 0.4 mg Sublingual Tablet (nitroglycerin 0.4 mg sublingual tablet) ??0.4 mg, Sublingual, Every 5 minutes Polyethylene Glycol 17 Gm Powder (MiraLax Powder) ??17 Gm 1 pack/packet, By Mouth, Daily Senna Tablet ??8.6 mg 1 tablet, By Mouth, 2 times a day Simethicone 80 mg Chewable Tablet (Simethicone Tablet) ??80 mg, Chew, 3 times a day ? IV Titrations (Last 24 hrs) Most Recent Infusions (Max of 3)? 02/15 11:40 ? Sodium Chloride 0.9% Normalized 1000 mL [1.5 mL/kg/hr] 1.5 mL/kg/hr ? Results Recent Labs BLOOD COUNT & DIFF WBC 7.4 k/mm3 ()?? 02/16/2024 11:56 RBC 3.81 m/mm3 (Low)?? 02/16/2024 11:56 Hgb 11.4 Gm/dL (Low)?? 02/16/2024 11:56 Hct 36.0 % (Low)?? 02/16/2024 11:56 MCV 94.5 femtoliters (High)?? 02/16/2024 11:56 MCH 29.9 pg ()?? 02/16/2024 11:56 MCHC 31.7 Gm/dL (Low)?? 02/16/2024 11:56 Platelet Count 170 k/mm3 ()?? 02/16/2024 11:56 RDW-SD 52.8 femtoliters (High)?? 02/16/2024 11:56 MPV 9.7 femtoliters ()?? 02/16/2024 11:56 Nucleated RBC (Automated) 0.0 #/100 WBC'S ()?? 02/16/2024 11:56 Abs. NRBC 0.0 k/mm3 ()?? 02/16/2024 11:56 ?? CARDIAC High Sensitivity Troponin (HSTnT) 2186 ng/L (Critical)?? 02/16/2024 01:00 ?? CHEM GENERAL Sodium 141 mmol/L ()?? 02/16/2024 12:09 Potassium 3.8 mmol/L ()?? 02/16/2024 12:09 Chloride 103 mmol/L ()?? 02/16/2024 12:09 Bicarbonate Level 24 mmol/L ()?? 02/16/2024 12:09 Anion Gap 14 ()?? 02/16/2024 12:09 Glucose Level 142 mg/dL (High)?? 02/16/2024 12:09 Glucose, POC 128 mg/dL (High)?? 02/16/2024 08:28 Hemoglobin A1C (Monitoring) 7.5 % (High)?? 02/15/2024 06:22 BUN 36 mg/dL (High)?? 02/16/2024 12:09 Creatinine-Blood 1.58 mg/dL (High)?? 02/16/2024 12:09 Estimated GFR Creatinine 43 ML/MIN/1.73 M2 ()?? 02/16/2024 12:09 Calcium 9.2 mg/dL ()?? 02/16/2024 12:09 Magnesium 2.2 mg/dL ()?? 02/15/2024 06:22 Protein, Total 6.6 Gm/dL ()?? 02/16/2024 01:00 Albumin 3.4 Gm/dL ()?? 02/16/2024 01:00 AG Ratio 1.1 ()?? 02/16/2024 01:00 Alkaline Phosphatase 95 units/L ()?? 02/16/2024 01:00 AST (SGOT) 90 units/L (High)?? 02/16/2024 01:00 ALT (SGPT) 23 units/L ()?? 02/16/2024 01:00 Bilirubin, Total 0.7 mg/dL ()?? 02/16/2024 01:00 Estimated Average Glucose 169 mg/dL ()?? 02/15/2024 06:22 ?? COAG APTT 46.6 seconds (High)?? 02/16/2024 01:00 ?? LIPID STUDIES Cholesterol 94 mg/dL ()?? 02/15/2024 06:22 Triglycerides 47 mg/dL ()?? 02/15/2024 06:22 HDL Cholesterol 37 mg/dL (Low)?? 02/15/2024 06:22 LDL Cholesterol 48 mg/dL ()?? 02/15/2024 06:22 Non HDL Cholesterol 57 mg/dL ()?? 02/15/2024 06:22 ?? URINE OTHER Est Creatinine Clearance 36.26 mL/min ()?? 02/16/2024 12:56 ? Abnormal Labs ?? BLOOD COUNT & DIFF Abs. NRBC?0.0 k/mm3 ()?02/16/2024 11:56 Hct?36.0 % (Low)?02/16/2024 11:56 Hgb?11.4 Gm/dL (Low)?02/16/2024 11:56 MCHC?31.7 Gm/dL (Low)?02/16/2024 11:56 MCV?94.5 femtoliters (High)?02/16/2024 11:56 Nucleated RBC (Automated)?0.0 #/100 WBC'S ()?02/16/2024 11:56 RBC?3.81 m/mm3 (Low)?02/16/2024 11:56 RDW-SD?52.8 femtoliters (High)?02/16/2024 11:56 ?? CARDIAC High Sensitivity Troponin (HSTnT)?2186 ng/L (Critical)??02/16/2024 01:00 ?? CHEM GENERAL AG Ratio?1.1 ()?02/16/2024 01:00 AST (SGOT)?90 units/L (High)?02/16/2024 01:00 BUN?36 mg/dL (High)?02/16/2024 12:09 Creatinine-Blood?1.58 mg/dL (High)?02/16/2024 12:09 Estimated GFR Creatinine?43 ML/MIN/1.73 M2 ()?02/16/2024 12:09 Glucose Level?142 mg/dL (High)?02/16/2024 12:09 Glucose, POC?128 mg/dL (High)?02/16/2024 08:28 ?? COAG APTT?46.6 seconds (High)?02/16/2024 01:00 ?? Note: Critical results are displayed in red. ? Urinalysis Est Creatinine Clearance: 36.26 mL/min (12:56) Est Creatinine Clearance: 33.9 mL/min (02:24) ? Assessment/Plan ? 83-year-old gentleman past medical history of atrial flutter status post ablation, amyloidosis, BPH, hypertension, hyperlipidemia coronary artery disease presented to the hospital with chief complaint of chest pain was diagnosed with NSTEMI started on medical treatment cardiology was consulted planis to undergo cardiac catheterization today. ? NSTEMI (non-ST elevated myocardial infarction) (I21.4):? CAD - Coronary artery disease (I25.10): Plan for cardiac catheterization today Follow with cardiology Will need to continue antiplatelet therapy along with statin beta-wilder. Will also need echocardiogram and cardiac rehab after the catheterization Follow with cardiology Cardiac monitoring ? Hypertensive urgency (I16.0):?? Amlodipine, metoprolol ? HFrEF - heart failure with reduced ejection fraction (I50.20):?? 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 Cardiomyopathy (I42.9):?? Continue Bumex ? Atrial flutter (I48.92):?? History of ablation Continue cardiac monitoring ? Interstitial lung disease (J84.9):?? currently??on supplemental O2; wean??as??tolerated;??continue??albuterol as needed ?? History of BPH (Z87.438): finasteride ? Hyperlipidemia (E78.5) ??Continue atorvastatin 80 mg daily ? Patient's at the bedside updated all questions were answered to satisfaction ?The IVUS assessment of the LAD indicates that there is no plaque rupture. Hence this is most likely a cardioembolic event. continue??heparin drip and aspirin Consult note * Pablo MCMAHON, Anita: PERFORM Event Display: Consultation Note Authored Date: [id number] Patient: ??KEVIN RODRÍGUEZ ? Age:??83 Years?Sex:??Male?:??1940?? 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 He very recently saw us in the office on 02/09/2024.?? He had been doing quite well at the time.?? This was up until about yesterday morning.?? It was at this pointhe started developing burning in his chest associated with shortness of breath.?? It was somewhat different from his prior heart attack symptoms which he remembers is just being shortness of breath.?? Initially he ignored it but then it started coming back.?? It was at this point he had his call 911.?? He denies any chest pain or shortness of breath leading up to this event.?? He has chronicdyspnea with moderate exertion from his amyloid disease but it was no different recently.?? He denied recent worsening of lower extremity edema.?? He denies PND, orthopnea, palpitations, lightheadedness, syncope.?? He denies any major bleeding or bruising.?? He denies fevers, chills.?? He has a chronic cough in the mornings productive of clear phlegm which has been unchanged. ?? He presented to [facility] ER where he was noted to have ongoing chest pressure refractory to 3 sublingual nitro.?? He was started on Nitropaste, heparin drip and bolus per ACS protocol after troponins acutely kita from 64-1 44.?? They went on to rise to a peak of 2964.?? BNP was also elevated at 4256.?? He had a CT angiography of the chest abdomen pelvis which did not show any acute aortic syndrome but did show pulmonary edema.?? There were no major PEs noted either.?? At the timeof my examination this morning, he was resting pretty comfortably and denied any chest pain. ?? Otherwise a 12 point review of systems was reviewed with the patient is negative most dictated in HPI. ?? See vital signs below General/constitutional: No acute distress, pleasant and cooperative Eyes: EOMI, normal convergence HENT: Atraumatic and normocephalic, moist mucous membranes Neck: Supple, no jugular venous distention Cardiovascular: Regular rate and rhythm, no murmurs rubs or gallops Lungs: Decreased breath sounds at bilateral bases Abdomen: Positive bowel sounds, nontender to palpation, no organomegaly Extremities: No cyanosis or edema Skin: Warm and dry Neuro: Alert and oriented x3, grossly nonfocal Psych: Mood and affect are appropriate ?? EKG: A sensed, V paced rhythm ?? 83-year-old gentleman with a complex cardiac history consistent of CAD with multiple PCI's in the past, HFrEF, amyloid cardiomyopathy, permanent A-fib not on anticoagulation due to major bleeding in the past, CKD presenting with acute onset of chest pressure associated with an acute rise of high-sensitivity troponins.?? I have to presume this is acute coronary syndrome/NSTEMI until proven otherwise.?? Patient is currently chest pain-free on Nitropaste along with heparin drip.?? He was already on dual antiplatelet therapy coming into this admission which has been continued.?? He is n.p.o. for cardiac cath today with possible PCI. 1.?? Non-STEMI???proceed with cardiac cath with possible PCI today, continue high-dose statin, dualantiplatelet therapy; interestingly, the patient remains on low-dose amlodipine, high-dose metoprolol in spite of having TTR amyloid???traditionally these medications are very poorly tolerated in amyloid patients???if possible, I may consider weaning these meds during this hospitalization but it looks as though he has also had pretty difficult to control hypertension so I may not be able to do so.?? Patient appears to be tolerating them I will do same as an outpatient so we will cautiously continue for now.?? Continue high-dose statin. 2.?? Chronic A-fib???not on anticoagulation due to major bleeding complication as an outpatient, may need to consider referral for watchman therapy as he is a high risk for stroke in the setting of amyloidosis in addition to traditional [id number] risk score 3.?? Amyloid cardiomyopathy???would have the patient's bring in outpatient tafamidis so that he can continue ?? Discussed with Dr Key. Physical Exam Vitals & Measurements T:??98.1?F?? HR:??60??(Peripheral)?? RR:??23?? BP:??161/61?? SpO2:??98%?? HT:??180??cm?? WT:??78.2??kg?? BMI:??24.14?? Weight lb/oz: 172 lb 6 oz Total Time Spent Activities performed in this time include chart review, obtaining / reviewing history, performing amedically necessary evaluation, documentation and ?? including medical decision making of Moderate Complexity (45-59 minutes for NEW patient) Allergies No Known Medication Allergies Other Environmental Allergy Home Medications Acetaminophen: 1,000 mg = 2 tablet, By Mouth, PRN (for pain), before bed Albuterol: 2.5 mg = 3 mL, Neb, Every 6 hours Albuterol: 2 puffs, Inhalation, 4 times a day, PRN (for wheezing) Allopurinol: 300 mg = 1 tablet, By Mouth, Daily Amlodipine: 2.5 mg = 1 tablet, By Mouth, Daily Atorvastatin: 80 mg, By Mouth, Daily at bedtime Bumetanide: 1 mg = 1 tablet, By Mouth, 2 times a day, 2 tablets in am, 1 tablet in pm Calcitriol: 45 each, 0 Refill(s), TAKE 1 CAPSULE BY MOUTH EVERY OTHER DAY Clopidogrel: 90 each, 0 Refill(s), TAKE 1 TABLET BY MOUTH EVERY DAY Finasteride: 5 mg = 1 tablet, By Mouth, Daily Metoprolol: 100 mg = 2 tablet, By Mouth, Daily, TAKE 2 TABLETS BY MOUTH EVERY DAY tafamidis: 61 mg = 1 capsule, By Mouth, Daily, swallow whole Hospital Medications Medications (22) Active SCHEDULED: (10) Allopurinol 300 mg Tablet (allopurinol 300 mg oral tablet) ??300 mg, By Mouth, Daily Amlodipine 5 mg Tablet (amLODIPine 5 mg oral tablet) ??2.5 mg, By Mouth, Daily Aspirin 81 mg EC Tablet (aspirin 81 mg oral delayed release tablet) ??81 mg, By Mouth, Daily Atorvastatin 80 mg Tablet (atorvastatin 80 mg oral tablet) ??80 mg, By Mouth, Daily at bedtime Bumetanide 1 mg Tablet (bumetanide 1 mg oral tablet) ??1 mg, By Mouth, Daily at supper Bumetanide 1 mg Tablet (Bumex Tablet) ??2 mg, By Mouth, Daily Finasteride 5 mg Tablet (finasteride 5 mg oral tablet) ??5 mg, By Mouth, Daily Metoprolol 100 mg XL Tablet (Metoprolol Succinate ER 100 mg oral tablet, extended release) ??100 mg, By Mouth, Daily NaCl 0.9% Flush 3ml (NaCL 0.9% Flush) ??3 mL, IV Push, Every 8 hours Nitroglycerin 2% Oint UD (Nitroglycerin 2% Topical) ??1 inches, Topically, Every 6 hours CONTINUOUS: (1) Heparin 25,000 units / 250 mL D5W premix 25,000 units [12 units/kg/hr] + D5%W Premixed IV 250 mL (Heparin 25,000 units in 250 mL Premix 25,000 units [12 units/kg/hr] + D5%W Premixed IV 250 mL) ??250 mL, IV Infusion, 9.38 mL/hr PRN: (11) Acetaminophen 325 mg Tablet (Acetaminophen Tablet) ??650 mg, By Mouth, Every 4 hours Albuterol 0.083% Inhalation Solution (Albuterol 0.083% inhalation [place]) ??2.5 mg 3 mL, BAND Nebulizer, Every 4 hours Docusate Sodium 100 mg Capsule (Docusate Sodium Capsule) ??100 mg 1 capsule, By Mouth, 2 times a day Heparin 5000 units/mL Inj (1 mL) (Heparin Inj) ??4,500 units 0.9 mL, IV Push, Every 6 hours Heparin 5000 units/mL Inj (1 mL) (Heparin Inj) ??2,500 units 0.5 mL, IV Push, Every 6 hours Melatonin 3 mg Tablet (Melatonin Tablet) ??3 mg, By Mouth, Daily at bedtime NaCl 0.9% Flush 3ml (NaCL 0.9% Flush) ??3 mL, IV Push, Every 8 hours Nitroglycerin 0.4 mg Sublingual Tablet (nitroglycerin 0.4 mg sublingual tablet) ??0.4 mg, Sublingual, Every 5 minutes Polyethylene Glycol 17 Gm Powder (MiraLax Powder) ??17 Gm 1 pack/packet, By Mouth, Daily Senna Tablet ??8.6 mg 1 tablet, By Mouth, 2 times a day Simethicone 80 mg Chewable Tablet (Simethicone Tablet) ??80 mg, Chew, 3 times a day Lab Results Cardiology Labs WBC: 7.6 k/mm3 (02/15/24) RBC:??3.51 m/mm3??Low (02/15/24) Hgb:??10.4 Gm/dL??Low (02/15/24) Hct:??32.2 %??Low (02/15/24) MCV: 91.7 femtoliters (02/15/24) MCH: 29.6 pg (02/15/24) MCHC:??32.3 Gm/dL??Low (02/15/24) Platelet Count: 173 k/mm3 (02/15/24) RDW-SD:??51.5 femtoliters??High (02/15/24) Nucleated RBC (Automated): 0 #/100 WBC'S (02/15/24) Abs. Neut: 5.3 k/mm3 (02/14/24) Abs. Lymph: 1.1 k/mm3 (02/14/24) Abs. [place]: 0.5 k/mm3 (02/14/24) Abs. Eo: 0.1 k/mm3 (02/14/24) Abs. Baso: 0 k/mm3 (02/14/24) Neut %: 75.8 % (02/14/24) [place] %: 6.7 % (02/14/24) Eos %: 1.1 % (02/14/24) Baso %: 0.3 % (02/14/24) Imm Gran: 0.1 % (02/14/24) Abs. Imm Gran: 0 k/mm3 (02/14/24) INR: 1 (02/14/24) Protime (PT): 11.1 seconds (02/14/24) APTT:??91.4 seconds??Critical (02/15/24) Sodium: 142 mmol/L (02/15/24) Potassium: 3.8 mmol/L (02/15/24) Chloride: 105 mmol/L (02/15/24) Bicarbonate Level: 24 mmol/L (02/15/24) Glucose Level:??135 mg/dL??High (02/15/24) Hemoglobin A1C (Monitoring):??7.5 %??High (02/15/24) BUN:??33 mg/dL??High (02/15/24) Creatinine-Blood:??1.64 mg/dL??High (02/15/24) Calcium: 8.9 mg/dL (02/15/24) Nt-Probnp:??4256 pg/mL??High (02/14/24) Cholesterol: 94 mg/dL (02/15/24) Triglycerides: 47 mg/dL (02/15/24) HDL Cholesterol:??37 mg/dL??Low (02/15/24) LDL Cholesterol: 48 mg/dL (02/15/24) Non HDL Cholesterol: 57 mg/dL (02/15/24) TSH: 2.35 uIU/mL (02/14/24) Diagnostic Impression MRI MRI Cardiac W+W/O Contrast ?? 11:57:32 IMPRESSION: ?? Mildly dilated left ventricle. There is myocardial thickening particularly of the basal to mid myocardium. The basal to mid septum measures up to 2.3 cm thickness. Severe global hypokinesia of the left ventricle. LVEF 27%. There is remarkable abnormal enhancement in the basal to mid myocardium, with a pattern consistent with nonischemic cardiomyopathy, such as hypertrophic cardiomyopathy, with differential including sarcoidosis, amyloidosis, etc. ?? Mildly to moderately enlarged left atrium. ?? There is fusion of the left and the right aortic valve cusps, making a functional bicuspid aortic valve. Flow analysis at the aortic valve demonstrated a 12% regurgitation, with no significant stenosis. ?? Normal size right ventricle with global hypokinesia. RVEF is 42%. ? WSN: [id number] ?? Signed By: Kanika Watson MD ECG ECG 12-Lead * Preliminary * ?? 09:24:49 Ventricular Rate: 61 BPM QRS Duration: 158 ms Q-T Interval: 498 ms QTC Calculation(Bazett): 501 ms R [place]: 151 degrees T [place]: 135 degrees Wide QRS rhythm Non-specific intra-ventricular conduction block Possible Lateral infarct , age undetermined Abnormal ECG When compared with ECG of 15-Feb-2024 07:33, MANUAL COMPARISON REQUIRED DATA IS UNCONFIRMED ?? [place]: , ?? ECG 12-Lead * Preliminary * ?? 09:24:49 Please click on pdf link to open report Echo Echocardiogram - Complete ?? 08:41:52 Summary Severely reduced LV systolic function (EF 25-30%). Global hypokinesis with regional variation. Indeterminate LV diastolic function. Normal LV size. Severely increased LV wall thickness. ?? Mildly reduced RV systolic function. Mildly dilated RV. ?? Moderately thickened and calcified aortic valve. Unable to exclude bicuspid aortic valve. Mild aortic regurgitation. No significant aortic stenosis. ?? Mildly elevated (30-35 mmHg) estimated PA systolic pressure. ?? Impressions No obvious evidence of endocarditis, but the sensitivity of this study is not sufficient to rule out endocarditis. Consider MAIDA if clinical suspicion remains high. ?? Comparison Comparison is made to the study of March 02, 2019. LV systolic function appears slightly improved on direct visual comparison. ?? Signature ?? Signed By: Stephanie MCMAHON, Jolene Guevara VL Studies VL Carotid Duplex Scan Bilat ?? 09:01:52 Summary: Right Side: Known occlusion of the Internal Carotid Artery. Antegrade flow in the Vertebral Artery. Multiphasic flow is seen in the Subclavian Artery. ?? Left Side: 1-49% stenosis in the Internal Carotid Artery, the previous velocity of 181.1 cm/s could not be obtained. Antegrade flow in the Vertebral Artery. Multiphasic flow is seen in the Subclavian Artery. ?? Comparison is made to the previous ultrasound study dated 05/28/22. ? Signed By: Carroll Cota MD Problem List/Past Medical History Ongoing Amyloidosis Atrial flutter Bicuspid aortic valve CAD - Coronary artery disease Cardiac device in situ Cardiomyopathy CKD stage 3 Gout HFrEF - heart failure with reduced ejection fraction History of BPH Hyperlipidemia Hypertension Interstitial lung disease MSSA bacteremia Olecranon bursitis, left elbow PVD - peripheral vascular disease Renal artery stenosis Spinal stenosis Thoracic aortic aneurysm Procedure/Surgical History Cardiac pacemaker procedure Laparoscopic cholecystectomy Ablation of atrioventricular node Hip replacement Cervical spinal fusion Carpal tunnel release Social History Alcohol Use: Current. Frequency: 1-2 times per week. Type: Wine. Employment/School Status: Retired. 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 Exercise Self assessment: Fair condition. Home/Environment Living situation: Home/Independent. Lives with: Spouse. Substance Abuse Use: Never. Tobacco Never smoker Family History Mother: Congestive heart failure Father: Asthma Sister: Diabetes mellitus type II Brother: Diabetes mellitus type II; Dialysis care Patient Care team information Care Team Personnel Name: Li Luke RN Position: [facility] RN Member Role: Primary Care Nurse Name: Tracie Eaton Position: [facility] [place]MIE Office Staff Member Role: Lifetime Consulting Physician Name: Emanuel Cobos RN Position: [facility] RN Member Role: Primary Care Nurse Name: Inocencia Burnette RN Position: [facility] AMB Nurse Member Role: Primary Care Nurse Name: Sarahi Patterson RN Position: [facility] RN Member Role: Primary Care Nurse Name: Mayra Calvillo MD Position: [facility] Physician - Primary Care Member Role: PCP Address: [address] [place] [address] Telecom: Name: Rosangela Georges NP Position: [facility] Associate Professional Member Role: Primary Care Nurse Name: Haritha Singh RN Position: [facility] RN Member Role: Primary Care Nurse Name: Clarice Bower RN Position: [facility] RN Member Role: Primary Care Nurse Name: Radha Linn RN Position: [facility] RN Member Role: Primary Care Nurse Name: Dania Koch RN Position: [facility] RN Member Role: Primary Care Nurse Name: Matti Grove RN Position: [facility] Outreach Member Role: Primary Care Nurse Name: Krys Bae RN Position: [facility] OB RN Member Role: Primary Care Nurse Name: Rafael Mccurdy RN Position: [facility] ED RN W/OE and Tasks Member Role: Primary Care Nurse Name: Chasity Kumar RN Position: [facility] RN Member Role: Primary Care Nurse Name: Jesusita Valentine RN Position: [facility] RN Member Role: Primary Care Nurse Name: Divina Grijalva RN Position: [facility] ED RN W/OE and Tasks Member Role: Primary Care Nurse Name: Erica Gayle RN Position: [facility] Metal Machine Operator Member Role: Primary Care Nurse Name: Calli Funk RN Position: [facility] SN RN Member Role: Primary Care Nurse Name: Ariadne Paul RN Position: [facility] RN Member Role: Primary Care Nurse Name: Román Rey RN Position: [facility] ED RN W/OE and Tasks Member Role: Primary Care Nurse Name: Anitha Shields RN Position: [facility] RN Member Role: Primary Care Nurse Name: Estefanía Miranda RN Position: [facility] Metal Machine Operator Member Role: Primary Care Nurse Care Team Related Persons Name: RODOLFO VIN Name: SELAM RODRÍGUEZ Insurance Providers Guarantor name: KEVIN RODRÍGUEZ Health Plan Information #: 2 Payer: MEDICARE PART B OUTPT Member Number: [id number] Policy Number: NA Group Number: NA Health Plan Information #: 3 Payer: MEDEX Member Number: [id number] Policy Number: NA Group Number: [id number] Health Plan Information #: 4 Payer: MEDEX Member Number: [id number] Policy Number: NA Group Number: NA Health Plan Information #: 1 Payer: MEDICARE A INPT 25 Member Number: [id number] Policy Number: NA Group Number: NA
--- OUTSIDE RECORDS SUMMARY | 2024-03-03 13:16 | XMS_ITS | Continuity of Care Document ---
Author Organization [facility] y Address [address] [place] [address] [address], [address] [place] [address]- Care Team Providers Care Insurance Account Assistant Name Role Phone Mayra Calvillo MD Primary Care Physician [phone] Encounter [facility] Date(s): 01/12/24 - 02/11/24 [facility] [address] [place] [address] Drive [address] [place], [place] [address] Attending Physician: Janes oMrgan Admitting Physician: Janes Morgan Referring Physician: Admtr ArCierra Encounter Type: Triage Allergies, Adverse Reactions, Alerts [...] 3 Refills, Maintenance, 01/13/19 12:13:26 PM EDT,Tablet, [facility]/pharmacy #[id number] Start Date: 01/13/19 Status: Ordered Quantity: 90.0 Unit: tablet Repeat number: 4 bumetanide 1 mg oral tablet 1 mg, 1, tablet, By Mouth, 2 times a day, # 60 tablet, Refills 0, Tot. Refills 0, Maintenance, 03/06/19 12:43:46 PM EST, Route to Pharmacy Electronically, [facility]-Pending Sale To [facility] 3, 180, cm, 03/06/19 8:36:31 EST, Height, [...] Refills, Maintenance, 10/26/19 12:12:00 PM EDT, Capsule, [facility] 3, 180, cm, 10/26/19 11:22:00 [...] disease Confirmed Active Spinal stenosis Confirmed Active Social History Social History Type Response Smoking Status Never smoker entered on: 11/03/16 Sex Sex Representation Male (finding) Patient Care team information Care Team Personnel Name: Tracie Eaton Position: [facility] SAMMIE Office Staff Member Role: Lifetime Consulting Physician Name: Emanuel Cobos RN Position: [facility] RN Member Role: Primary Care Nurse Name: Inocencia Burnette RN Position: [facility] RN Member Role: Primary Care Nurse Name: Sarahi Patterson RN Position: [facility] RN Member Role: Primary Care Nurse Name: Mayra Calvillo MD Position: [facility] Physician - Primary Care Member Role: PCP Address: [address] [place] [address]- Telecom: Name: Rosangela Georges NP Position: [facility] Associate Professional Member Role: Primary Care Nurse Name: Haritha Singh RN Position: [facility] RN Member Role: Primary Care Nurse Name: Clarice Bower RN Position: [facility] RN Member Role: Primary Care Nurse Name: Rahda Linn RN Position: [facility] RN Member Role: Primary Care Nurse Name: Dania Koch RN Position: [facility] RN Member Role: Primary Care Nurse Name: Matti Grove RN Position: [facility] Outreach Member Role: Primary Care Nurse Name: Krys Bae RN Position: [facility] OB RN Member Role: Primary Care Nurse Name: Rafael Mccurdy RN Position: [facility] ED RN W/OE and Tasks Member Role: Primary Care Nurse Name: Chasity Kumar RN Position: [facility] RN Member Role: Primary Care Nurse Name: Jesusita Valentine RN Position: [facility] RN Member Role: Primary Care Nurse Name: Divina Grijalva RN Position: [facility] ED RN W/OE and Tasks Member Role: Primary Care Nurse Name: Erica Gayle RN Position: [facility] Lard Mixer Member Role: Primary Care Nurse Name: Calli Funk RN Position: [facility] SN RN Member Role: Primary Care Nurse Name: Román Rey RN Position: [facility] ED RN W/OE and Tasks Member Role: Primary Care Nurse Name: Anitha Shields RN Position: [facility] RN Member Role: Primary Care Nurse Name: Estefanía Miranda RN Position: [facility] Lard Mixer Member Role: Primary Care Nurse Care Team Related Persons Name: VIN REYNOLDS Name: SELAM REYNOLDS Insurance Providers Guarantor name: KEVIN REYNOLDS Health Plan Information #: 1 Payer: MEDICARE PART B OUTPT Member Number: NA Policy Number: NA Group Number: NA Health Plan Information #: 2 Payer: MEDEX Member Number: NA Policy Number: NA Group Number: NA
[2024-03-03 13:38] VITALS: BP 126/78; PULSE 86; O2SAT 96; BMI 24.8
--- NOTE | 2024-03-03 13:38 | MHC.PC.OV ---
Vital Signs 03/03/24 13:38 Height 5 ft 11 in Weight 178 lb BMI 24.8 BP 126/78 Blood Pressure Location Rt brachial Position Sitting Pulse 86 Pulse Source Pulse Oximeter Pulse Oximetry (%) 96 Oxygen Delivery Method Room Air Intake Visit Reasons: follow up Intake Note: Pt is here today for hospital follow up visit. Pt states that he had heart attack 2 weeks ago. Allergies Fluticasone nasal spray Adverse Reaction (Intermediate, Uncoded 11/16/23 10:13) Nosebleed Medication List - Last Reconciled 03/03/24 by Mayra Calvillo MD albuterol sulfate 90 mcg/actuation 2 puffs inhalation Q6H PRN allopurinol 300 mg PO DAILY amlodipine 2.5 mg PO DAILY amoxicillin 2,000 mg (4 x 500 mg) PO ONCE 2 days apixaban (Eliquis) 2.5 mg PO BID aspirin 81 mg PO DAILY atorvastatin 80 mg PO DAILY bumetanide 1 mg PO BID calcitriol every other day finasteride 5 mg PO DAILY levalbuterol HCl (Xopenex) 0.63 mg (3 mL) inhalation TID metoprolol succinate ER 100 mg PO DAILY nitroglycerin 0 mg sublingual BEDTIME tafamidis (Vyndamax) 61 mg PO DAILY Tobacco use date assessed: 03/03/24 Fall risk assessment: No Falls in past year Last assessed Fall Risk: 03/03/24 Dental Screening Dental Screen Date: 03/03/24 Did you have a dental visit in the last 12 months?: Yes Did you have a dental problem in the last 6 months where you did not have access to dental care?: No Was dental information given to patient?: Patient has dentist HPI follow up HPI Details Patient presents for the follow-up of hospitalization at [facility] for NSTEMI. He underwent cardiac catheterization, found to have distal LAD 80% occluded with thrombus and underwent PCI with mechanical thrombectomy but still small amount of thrombus left in the mid segment of distal LAD was considered too small and high-risk for intervention. Patient was discharged home on Eliquis and aspirin and clopidogrel was discontinued. Patient denies any recurrent chest pain and reports baseline shortness of breath no PND orthopnea. Patient is concerned about history of bleeding in the past while on Eliquis including nosebleeds and hemoptysis. Patient follows up with ENT and has been undergoing catheterization of a bleeding vessel. [facility] Medical History (Updated 12/12/24 @ 15:18 by Mayra Calvillo MD) Claudication of left lower extremity CAD (coronary artery disease) Hyperlipemia CKD (chronic kidney disease), stage III Bradycardia Cardiomyopathy BPH (benign prostatic hyperplasia) Spinal stenosis Gout Thoracic aortic aneurysm Flexor tenosynovitis of finger Surgical History History of fusion of cervical spine H/O prior ablation treatment History of ankle surgery History of carpal tunnel surgery History of shoulder surgery Hx of cholecystectomy Family History Father COPD (chronic obstructive pulmonary disease) Mother Heart disease Colon cancer CVD (cardiovascular disease) Social History Housing: House Patient Tobacco Use Status: Never used Tobacco e-Cigarette/Vaping Use: Never Used service: Yes Current occupational status: retired Cognitive needs: No Hearing needs: Yes Vision needs: No Questionnaire Thrive Questionnaire Date Thrive assessed: 11/16/23 I am a: Patient What is your living situation today?: I have a steady place to live Within the past 12 months, did the food you bought not last and you didn't have the money to get more?: Never true Within the past 12 months, did you worry whether your food would run out before you got money to buy more?: Never true Do you have trouble paying for medicines?: No Do you have trouble getting transportation to medical appointments?: No Do you have trouble paying your heating and electricity bill?: No Do you have trouble taking care of your child, family member or friend?: I choose not to answer this question Do you have trouble with day-to-day activities such as bathing, preparing meals, shopping, managing finances, etc.?: No Are you currently unemployed and looking for a job?: No Are you interested in more education?: No Please select the resources that you would like help with: None Currently or been in a relationship where the following occur: I choose not to answer THRIVE Score: 0 AUDIT C Alcohol Use Questionnaire (AUDIT-C) 1. How often do you have a drink containing alcohol?: Monthly or less 2. How many drinks containing alcohol do you have on a typical day when you are drinking?: 1 or 2 3. How often do you have six or more drinks on one occasion?: Never Total Score: 1 HARPAL-7 AMB Questionnaire HARPAL-7 Date HARPAL - 7 assessed: 12/05/22 Source: Developed by Drs. Tomas Duran, Marion Miranda, Jony Kyle and colleagues, with an educational [place] from [employer]. Review of Systems Const All systems reviewed & are unremarkable except as noted in HPI and below Eyes Reports no additional complaints ENT Reports no additional complaints Card Reports no additional complaints Resp Reports no additional complaints GI Reports no additional complaints Reports no additional complaints Physical exam (Primary Care) Vital Signs: Last Vital Signs Pulse 86 03/03/24 13:38 BP 126/78 03/03/24 13:38 Pulse Ox 96 03/03/24 13:38 Oxygen Delivery Method Room Air 03/03/24 13:38 BMI result Body Mass Index 24.8 Tobacco/Smoking Status: Tobacco use Status Tobacco use date assessed 03/03/24 03/03/24 13:56 Patient Tobacco Use Status Never used Tobacco 03/03/24 13:56 e-Cigarette/Vaping Use Never Used 03/03/24 13:39 Thrive Assessment: Date of Thrive Assessment Date Thrive assessed 11/16/23 03/03/24 13:39 Currently or been in a relationship where the following occur: I choose not to answer Const General: no acute distress HENMT Head: Yes normal to inspection General nose exam: Normal external nose present Mouth: Normal oral and palatal mucosa present Eyes General: appearance normal, both eyes and all related structures Neck Neck: Yes supple Resp Effort & Inspection: normal respiratory effort Auscultation: crackles and diminished lung sounds Cardio Rhythm: regular rhythm Heart sounds: S1 normal heart sound present and S2 normal heart sound present GI Inspection: Yes normal to inspection Palpation (GI): Soft to palpation Percussion: Yes normal to percussion Coding Level of Care Code Est Pt Level 4 (88567) Complex EM visit Add On G2211 Diagnoses CAD (coronary artery disease) I25.10 CKD (chronic kidney disease), stage III N18.30 Cardiomyopathy I42.9 Assessment & Plan Assessment & Plan (1) CAD (coronary artery disease): Comment: s/p LAD ERNIE 2018, s/p RCA ERNIE [address] [facility] [address] Miranda, s/p cardiac cath 01/2024 [facility] mid LAD mechanical thrombectomy for large thrombus, started on Eliquis Code(s): I25.10 - Atherosclerotic heart disease of [place] coronary artery without angina pectoris Category: Medical Plan: Continue atorvastatin aspirin and metoprolol (2) CKD (chronic kidney disease), stage III: Comment: Follow-up with Dr. 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 Vivar/ Dr. Miranda, Echo 03/14 EF 45%, Echo 01/2024 [facility] EF 35-40%, global hypokinesis with mid hypokinesis and basal inferior and inferior septal oliveira Code(s): I42.9 - Cardiomyopathy, unspecified Category: Medical Plan: Continue current medications follow-up with Cardiology Orders: Orders Comprehensive [place]. Panel Fast 3 Months E78.5 - Hyperlipidemia, unspecified, I42.9 - Cardiomyopathy, unspecified, N18.30 - Chronic kidney disease, stage 3 unspecified Complete Blood Count Auto Diff 3 Months E78.5 - Hyperlipidemia, unspecified, I42.9 - Cardiomyopathy, unspecified, N18.30 - Chronic kidney disease, stage 3 unspecified Lipid Panel 3 Months E78.5 - Hyperlipidemia, unspecified, I42.9 - Cardiomyopathy, unspecified, N18.30 - Chronic kidney disease, stage 3 unspecified B Type Natriuretic Peptide 3 Months E78.5 - Hyperlipidemia, unspecified, I42.9 - Cardiomyopathy, unspecified, N18.30 - Chronic kidney disease, stage 3 unspecified Medications: New apixaban (Eliquis) 2.5 mg PO BID 180 tabs 1RF amlodipine 2.5 mg PO DAILY 90 tabs 3RF
== END 2024-03-03 15:21 | disposition home or self-care (01) ==
PROVIDERS: PCP Internal Medicine; Visit Provider Internal Medicine
DX: I25.10 Atherosclerotic heart disease of native coronary artery without angina pectoris (principal); N18.30 Chronic kidney disease, stage 3 unspecified; I42.9 Cardiomyopathy, unspecified

== ENCOUNTER → 2024-03-03 13:14 | Outpatient (BNVA) | payer MEDICARE, SELFPAY | PROVIDERS: PCP Internal Medicine; Visit Provider Internal Medicine | DX: I25.10 Atherosclerotic heart disease of native coronary artery without angina pectoris (principal); N18.30 Chronic kidney disease, stage 3 unspecified; I42.9 Cardiomyopathy, unspecified | CPT/HCPCS: 99212 ==

== ENCOUNTER 2024-07-04 11:10 | Outpatient (AMB) | payer MEDICARE, SELFPAY ==
[2024-07-04 11:15] VITALS: BP 128/82; PULSE 75; RESP 20; TEMP 36.8; O2SAT 95; BMI 23.7
--- NOTE | 2024-07-04 11:15 | A.OFFPC_ITS ---
Vital Signs 07/04/24 11:15 Height 5 ft 11 in Weight 170 lb BMI 23.7 BP 128/82 Blood Pressure Location Lt brachial Position Sitting Respiration 20 Pulse 75 Pulse Source Pulse Oximeter Temp 98.3 F Temp Source Oral Pulse Oximetry (%) 95 Oxygen Delivery Method Room Air Intake Visit Reasons: 4m follow up Intake Note: Pt is here today for 4 months follow up visit. Allergies Fluticasone nasal spray Adverse Reaction (Intermediate, Uncoded 07/04/24 11:15) Nosebleed Tobacco use date assessed: 07/04/24 Fall risk assessment: 1 Fall in past year Last assessed Fall Risk: 07/04/24 Dental Screening Dental Screen Date: 07/04/24 Did you have a dental visit in the last 12 months?: Yes Did you have a dental problem in the last 6 months where you did not have access to dental care?: No Was dental information given to patient?: Patient has dentist HPI 4m follow up HPI Details Patient presents for the follow-up of heart failure with reduced ejection fraction hyperlipidemia coronary artery disease cardiac amyloidosis chronic kidney disease stage 3. 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 He has been compliant taking his medications. Patient denies any change in his chronic dyspnea on exertion. He denies PND orthopnea PFSH Medical History Claudication of left lower extremity CAD (coronary artery disease) Hyperlipemia CKD (chronic kidney disease), stage III Bradycardia Cardiomyopathy BPH (benign prostatic hyperplasia) Spinal stenosis Gout Thoracic aortic aneurysm Flexor tenosynovitis of finger Surgical History History of fusion of cervical spine H/O prior ablation treatment History of ankle surgery History of carpal tunnel surgery History of shoulder surgery Hx of cholecystectomy Family History Father COPD (chronic obstructive pulmonary disease) Mother Heart disease Colon cancer CVD (cardiovascular disease) Social History Housing: House Patient Tobacco Use Status: Never used Tobacco e-Cigarette/Vaping Use: Never Used service: Yes Current occupational status: retired Cognitive needs: No Hearing needs: Yes Vision needs: No Questionnaire PHQ-9 Over the last 2 weeks, how often have you been bothered by any of the following problems? 1. Little interest or pleasure in doing things: not at all 2. Feeling down, depressed, or hopeless: not at all 3. Trouble falling or staying asleep, or sleeping too much: not at all 4. Feeling tired or having little energy: not at all 5. Poor appetite or overeating: not at all 6. Feeling bad about yourself - or that you are a failure or have let yourself or your family down: not at all 7. Trouble concentrating on things, such as reading the newspaper or watching television: not at all 8. Moving or speaking so slowly that other people could have noticed. Or the opposite - being so fidgety or restless that you have been moving around a lot more than usual: not at all 9. Thoughts that you would be better off or of hurting yourself in some way: not at all Total score: 0 Depression Screening Interpretation: Negative Depression Screening Done: Yes 10523 - PHQ-9 Billing: Yes Source: Developed by Drs. Tomas Duran, Marion Miranda, Jony Kyle and colleagues, with an educational [place] from [employer]. Thrive Questionnaire Date Thrive assessed: 07/04/24 I am a: Patient What is your living situation today?: I have a steady place to live Within the past 12 months, did the food you bought not last and you didn't have the money to get more?: Never true Within the past 12 months, did you worry whether your food would run out before you got money to buy more?: Never true Do you have trouble paying for medicines?: No Do you have trouble getting transportation to medical appointments?: No Do you have trouble paying your heating and electricity bill?: No Do you have trouble taking care of your child, family member or friend?: I choose not to answer this question Do you have trouble with day-to-day activities such as bathing, preparing meals, shopping, managing finances, etc.?: No Are you currently unemployed and looking for a job?: No Are you interested in more education?: No Please select the resources that you would like help with: None Currently or been in a relationship where the following occur: I choose not to answer THRIVE Score: 0 AUDIT C Alcohol Use Questionnaire (AUDIT-C) 1. How often do you have a drink containing alcohol?: Monthly or less 2. How many drinks containing alcohol do you have on a typical day when you are drinking?: 1 or 2 3. How often do you have six or more drinks on one occasion?: Never Total Score: 1 HARPAL-7 AMB Questionnaire HARPAL-7 Date HARPAL - 7 assessed: 07/04/24 Feeling nervous, anxious, or on edge: 0 = Not at all Not being able to stop or control worryin = Not at all Worrying too much about different things: 0 = Not at all Trouble relaxin = Not at all Being so restless that it is hard to sit still: 0 = Not at all Becoming easily annoyed or irritable: 0 = Not at all Feeling afraid as if something awful might happen: 0 = Not at all Total HARPAL-7 score (0-4 normal; 5-9 mild; 10-14 moderate; 15-21 severe): 0 Source: Developed by Drs. Tomas Duran, Marion Miranda, Jony Kyle and colleagues, with an educational [place] from [employer]. HARPAL-7 Assessment Billing HARPAL-7 Assessment Tool: HARPAL-7 Assessment 77881 Review of Systems Const All systems reviewed & are unremarkable except as noted in HPI and below Reports no additional complaints Eyes Reports no additional complaints ENT Reports no additional complaints Card Reports no additional complaints Resp Reports no additional complaints GI Reports no additional complaints Reports no additional complaints Physical exam (Primary Care) Vital Signs: Last Vital Signs Temp 98.3 F 07/04/24 11:15 Pulse 75 07/04/24 11:15 Resp 20 07/04/24 11:15 BP 128/82 07/04/24 11:15 Pulse Ox 95 07/04/24 11:15 Oxygen Delivery Method Room Air 07/04/24 11:15 BMI result Body Mass Index 23.7 Tobacco/Smoking Status: Tobacco use Status Tobacco use date assessed 07/04/24 07/04/24 11:22 Patient Tobacco Use Status Never used Tobacco 07/04/24 11:22 e-Cigarette/Vaping Use Never Used 07/04/24 11:22 PHQ-9: PHQ-9 Score PHQ-9: Total score 0 07/04/24 12:10 Depression Screening Interpretation: Negative Thrive Assessment: Date of Thrive Assessment Date Thrive assessed 07/04/24 07/04/24 11:22 Currently or been in a relationship where the following occur: I choose not to answer Const General: no acute distress HENMT Head: Yes normal to inspection General nose exam: Normal external nose present Throat: Yes posterior oropharynx normal Neck Neck: Yes supple Resp Effort & Inspection: normal respiratory effort Auscultation: clear to auscultation bilaterally Cardio Rhythm: regular rhythm Heart sounds: S1 normal heart sound present and S2 normal heart sound present GI Inspection: Yes normal to inspection Palpation (GI): Soft to palpation Percussion: Yes normal to percussion Auscultation: normal bowel sounds Extrem General: Yes no clubbing, cyanosis or edema Immunizations pneumoc 20-july conj-dip cr(PF) 0.5 mL IM syringe Performing Provider: Mayra Calvillo MD Performing [place] [facility] Administered by: STAN Smith on 07/04/24 12:10 Dose Route Admin Location Dispensed Lot Number Expiration Date [facility] [employer] In[employer] 0.5 mL IM Left Deltoid 0.5 mL [id number] 09/19/25 [id number] WYETH/PFIZER VIS Given Date VIS Provided VIS Publication Date 07/04/24 Single Vaccine 21 Eligibility Eligibility Date Funding Source Not [facility] Eligible 07/04/24 Private Coding Level of Care Code Est Pt Level 4 (69028) Complex EM visit Add On G2211 Diagnoses Claudication of left lower extremity I73.9 Cardiomyopathy I42.9 CAD (coronary artery disease) I25.10 CKD (chronic kidney disease), stage III N18.30 Additional Codes HARPAL-7 Assessment Billing - HARPAL-7 Assessment Tool: HARPAL-7 Assessment 52599 ([id number]) PHQ-9 - 36677 - PHQ-9 Billing: Yes ([id number]) Assessment & Plan Assessment & Plan (1) Claudication of left lower extremity: Comment: Follow-up with [facility] vascular surgeon Code(s): I73.9 - Peripheral vascular disease, unspecified Category: Medical Plan: Follow-up with vascular surgeon patient is scheduled for arterial Doppler next week (2) Cardiomyopathy: 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 Vivar/ Dr. Miranda, Echo 03/14 EF 45%, Echo 01/2024 [facility] EF 35-40%, global hypokinesis with mid hypokinesis and basal inferior and inferior septal oliveira Code(s): I42.9 - Cardiomyopathy, unspecified Category: Medical Plan: Continue current medications follow-up with Cardiology (3) CAD (coronary artery disease): Comment: s/p LAD ERNIE 2018, s/p RCA ERNIE [address] [facility] [address] Miranda, s/p cardiac cath 01/2024 [facility] mid LAD mechanical thrombectomy for large thrombus, started on Eliquis Code(s): I25.10 - Atherosclerotic heart disease of [place] coronary artery without angina pectoris Category: Medical Plan: Continue current medications (4) CKD (chronic kidney disease), stage III: Comment: Follow-up with Dr. Garcia Code(s): N18.30 - Chronic kidney disease, stage 3 unspecified Category: Medical Plan: Avoid nephrotoxins monitor renal function patient is established with nephrology. Follow-up in 6 months Orders: Orders Pneumococcal 20 Immunization Today Z23 - Encounter for immunization
--- OUTSIDE RECORDS SUMMARY | 2024-07-04 13:11 | XMS_ITS | Data Portability ---
Author Organization [facility] [place] Address [address] [place] [address] Assessment No assessment recorded. Plan of Treatment Reminders Order Date Submit Date Provider Last Modified By Organization Details Last Modified Time Details Appointments None record ed. Lab None record ed. Referral None record ed. Procedures None record ed. Surgeries None record ed. Imaging None record ed. Medication Orders None record ed. Patient TargetsNo targets recorded. Patient Instructions Encounter Date Encounter Id Patient Instructions Last Modified By Organization Details Last Modified Time 04/06/2018 [id number] foot sprain: car e instructions Not available 04/06/2018 18:03:34 Reason for Referral None Reported. Procedures Surgical History Date Name Laterality Status Provider Name and Address Organization Details Recorded Time 9 General Operative Note completed DARIO MALDONADO DPM [address], [phone], [facility] [place] 04/06/2018 18:02:52 9 Multi-layer strapping completed DARIO MALDONADO DPM [address], [address], [facility] [place] 04/06/2018 18:04:14 Imaging Results None recorded. Procedure Notes None recorded. Medical Equipment None Reported. Medications Name Sig Start Date Stop Date Status Note LastModified by Organization Details LastModified Time amoxicillin 500 mg capsule active Not Available Not Available N ot Available azithromycin 250 mg tablet active Not Available Not Availabl e Not Available alclometasone 0.05 % topical cream active Not Available Not Available Not Available pravastatin 80 mg tablet active Not Available Not Available No t Available amlodipine 10 mg tablet active Not Available Not Available No t Available allopurinol 300 mg tablet active Not Available Not Available No t Available lisinopril 40 mg tablet active Not Available Not Available No t Available finasteride 5 mg tablet active Not Available Not Available No t Available olmesartan 40 mg tablet active Not Available Not Available No t Available Eliquis 5 mg tablet active Not Available Not Available Not Available Shingrix (PF) 50 mcg/0.5 mL intramuscular suspension, kit active Not Available Not Availa ble Not Available Vitals None Recorded Social History None recorded. Functional Status None recorded. Mental Status None recorded. Family History Nothing Reported. Medical History No medical history recorded. Past Encounters Encounter ID Performer Location Encounter Start Date Encounter Closed Date Diagnosis/Indication Diagnosis SNOMED-CT Code Diagnosis ICD10 Code Diagnosis Note [id number] DARIO MALDONADO DPM [facility] [place] [address] [facility] [address] [place] [address] 04/06/2018 18:01:56 04/06/2018 18:04:35 Sprain of foot 19711580 S93.691A Sprain, an kle joint, lateral [id number] S93.491A Health Concerns Section Related Observation LastModified by Organization Detai ls LastModified Time None Recorded Concern Status LastModified by Organization Details LastModified Time None Recorded Advance Directives Directive None Recorded Payers Encounter Date Sequence Insurance Name Policy Number Policy Garcia Covered Member ID Garcia Member ID Guarantor Name 04/06/2018 1 [place] Edwin Rodríguez [id number] Edwin Rodríguez 04/06/2018 2 [facility] [id number] Edwin Rodríguez [id number] Edwin Rodríguez
--- OUTSIDE RECORDS SUMMARY | 2024-07-04 13:11 | XMS_ITS | Clinical Summary ---
Author Organization [facility] Address [address] [place] [address] Care Team Providers Care Plant Senior Manager Name Role Phone Gale Connor PA-C Primary Care Provider [phone] Social History Tobacco Use Types Packs/Day Years Used Date Smoking Tobacco: Never Assessed Sex and Gender Information Value Date Recorded Sex Assigned at Not on file Gender Identity Not on file Sexual Orientation Not on file Plan of Treatment Health Maintenance Due Date Last Done Comments DTaP/Tdap/Td Vaccines (1 - Tdap) 1957 Pneumococcal Vaccines 50+ (1 of 1 - PCV) 1988 Zoster (Shingles) Vaccine (1 of 2) 1988 RSV Vaccine 60 years and old er and Patients (1 - 1-dose 75+ series) 2013 Influenza Vaccine 10/22/2023 COVID-19 Vaccine ( - 2023-2 5 season) 2023 Hepatitis B Vaccines Aged Out No long er eligible based on patient's age to complete this topic Care Teams Plant Senior Manager Relationship Specialty Start Date End Date Gale Connor PA-C [facility] - General 05/09/19
--- OUTSIDE RECORDS SUMMARY | 2024-07-04 13:11 | XMS_ITS | Clinical Summary ---
Author Organization [facility] Address [address] [phone] Phone Care Team Providers Care Dispute Specialist Name Role Phone Mayra Calvillo MD Primary Care Provider [phone] Allergies Active Allergy Reactions Criticality Noted Date Comments Other 08/06/2018 Seasonal allergies pak and perfumes Sulfacetamide Other (see comments) 12/16/2005 Other reaction(s): Other (see comments) Medications allopurinol (ZYLOPRIM) 300 MG tablet Take 1 tablet by mouth 1 (one) time each day Active atorvastatin (LIPITOR) 80 MG tablet Take 1 tablet by mouth at bed time Active bumetanide (BUMEX) 1 MG tablet Take 1 tablet by mouth 2 (two) times a day 12/26/2019 Active finasteride (PROSCAR) 5 MG tablet Take 1 tablet by mouth 1 (one) time each day Active Tafamidis (Vyndamax) 61 MG capsule Take 1 capsule by mouth 1 (one) time each day Active metoprolol tartrate (LOPRESSOR) 100 MG tablet Take 1 tablet by mouth 1 (one) time each day Active amLODIPine (NORVASC) 2.5 MG tablet Take 2.5 mg by mouth 1 (one) time each day Active apixaban (Eliquis) 2.5 MG tablet Take 2.5 mg by mouth in the morning and 2.5 mg in the evening. Active aspirin (ST CHRISTOPH) 81 MG EC tablet Take 81 mg by mouth 1 (one) time each day Active Active Problems Problem Noted Date Diagnosed Date Stage 3a chronic kidney disease 04/18/2024 Secondary hyperparathyroidism of renal origin Amyloidosis 09/03/2020 Acute nontraumatic kidney injury 07/27/2020 Anemia 07/27/2020 Stage 3b chronic kidney disease 07/27/2020 Chronic kidney disease stage 2 07/27/2020 Essential hypertension 07/27/2020 Hyperparathyroidism 07/27/2020 Hypertensive renal disease 07/27/2020 H/O: steroid therapy 01/14/2019 Overview (07/27/2020): Last Assessment & Plan: She is taking vitamin D and calcium. Recommend bone density scanning for monitoring. Ischemic cardiomyopathy 01/14/2019 Overview (07/27/2020): Last Assessment & Plan: Continue with Vyndamax. On appropriate heart failure therapy. Orthostatic hypotension 11/11/2018 Overview (07/27/2020): Last Assessment & Plan: Very slow steroid taper given his orthostatic hypotension. Paroxysmal atrial fibrillation 11/11/2018 Overview (07/27/2020): Last Assessment & Plan: Patient says he is sometimes in sinus rhythm. Perhaps in 3 months time if his lung disease is stable you can consider restarting coumadin or trying xarelto. Would not try eliquis again. On the other hand, he is 78 years old, perhaps we can get away with ASA alone? Will defer to Dr. Cronin on this. Pulmonary aspergillosis 09/28/2018 Overview (07/27/2020): Last Assessment & Plan: Negative galactomannan suggests colonizer. All other cultures negative. Shortness of breath 09/28/2018 Overview (07/27/2020): Last Assessment & Plan: Will check full PFTs to get a sense of his new baseline. Interstitial pulmonary disease 09/27/2018 Overview (07/27/2020): Last Assessment & Plan: Patient stable off of prednisone. We will plan for repeat pulmonary function test in 6 months assess response to this new therapy. Usually amyloidosis causes more airways issues in the lung and there was no evidence of that on his last pulmonary function tests. Encounters Date Type Department Care Team Description 06/08/2024 Refill [facility]. [address] [phone] Andreina Agee 04/18/2024 11:30 AM EST Office Visit [facility] [address] [phone] Azam Garcia MD Stage 3a chronic kidney disease (HCC) (Primary Dx); Hypertensive renal disease from Last 3 Months Immunizations Immunization Administration Dates Next Due DTaP 01/02/2013 Influenza Split High Dose Pr eservative Free IM 01/11/2019,12/21/2018,11/27/2016,12/23,12/07/2015,12/01/2014,12/14/2012 Influenza TIV (IM) 12/10/2016,01/21/2005 Influenza, Quadrivalent, Wit h Preservative 01/07/2017 Influenza, Trivalent, Adjuvanted 12/23/2017 Moderna SARS-COV-2 2020 Pfizer SARS-COV-2 2020,04/30/2020 Pneumococcal Conjugate 13-Valent 03/02/2016,04/2 10/2014 Pneumococcal Polysaccharide 04/23/2005, 5 Shingrix 02/08/2018,12/10/2017 Family History Medical History Relation Comments Heart disease Mother Diabetes Sibling Relation Status Comments Father Mother Sibling Social History Tobacco Use Types Packs/Day Years Used Date Smoking Tobacco: Never Smokeless Tobacco: Never Tobacco Cessation:Counseling Given: Not Answered Alcohol Use Standard Drinks/Week Comments Yes 0 (1 standard drink = 0.6 oz pure alcohol) Alcoholic Drinks/day: Occasional social drink Sex and Gender Information Value Date Recorded Sex Assigned at Not on file Legal Sex Male 4:52 PM EST Gender Identity Not on file Sexual Orientation Not on file Last Filed Vital Signs Vital Sign Reading Time Taken Comments Blood Pressure 140/62 04/18/2024 11:29 AM EST Pulse 73 04/18/2024 11:29 AM EST Temperature - - Respiratory Rate - - Oxygen Saturation 97% 09/03/2020 9:54 AM EDT Inhaled Oxygen Concentration - - Weight 77.1 kg (170 lb) 04/18/2024 11:29 AM EST Height 180.3 cm (5' 11 ) 09/03/2020 9:54 AM EDT Body Mass Index 23.71 09/03/2020 9:54 AM EDT Plan of Treatment Upcoming Encounters Date Type Department Care Team (Late st Contact Info) Description 10/17/2024 1:45 PM EDT Office Visit [facility]. [address] [phone] Tosin Leal ARNP [address] [phone] Health Maintenance Due Date Last Done Comments Influenza Vaccine (Season Ended) 2024 01/11/2019, 12/21/2018, 12/23/2017, Additional history exists Pneumococcal Vaccine: 50+ Years Completed 03/02/2016, 07/18/2014, 04/23/2005, Additional history exists Pneumococcal Vaccine: Peds (0 to 5 Years) and At-Risk Patients (6 to 49 Years) Discontinued 03/02/2016, 07/18/2014, 04/23/2005, Additional history exists Hepatitis B Vaccine Aged Out No longe r eligible based on patient's age to complete this topic Insurance [facility] Medicare [facility] Medicare Care Teams Dispute Specialist Relationship Specialty Start Date End Date Mayra Calvillo MD [address] [place] [address] PCP - General Internal Medicine 09/03/20
--- OUTSIDE RECORDS SUMMARY | 2024-07-04 13:11 | XMS_ITS | Encounter Summary ---
Author Organization [facility] Address [address] [facility] [address] [place] [address] Phone Care Team Providers Care Human Resource Assistant Name Role Phone Mayra Calvillo MD Primary Care Provider [phone] Reason for Visit * Reason Comments Med Refill Encounter Details Date Type Department Care Team (Late st Contact Info) Description 01/13/2021 [facility] [address] [place] [phone] Azam Garcia MD [address] [facility] [address] [place] [address] Social History Tobacco Use Types Packs/Day Years Used Date Smoking Tobacco: Never Alcohol Use Standard Drinks/Week Comments Yes 0 (1 standard drink = 0.6 oz pure alcohol) Alcoholic Drinks/day: Occasional social drink Sex and Gender Information Value Date Recorded Sex Assigned at Not on file Legal Sex Male 4:52 PM EST Gender Identity Not on file Sexual Orientation Not on file documented as of this encounter Plan of Treatment Upcoming Encounters Date Type Department Care Team (Late st Contact Info) Description 10/17/2024 1:45 PM EDT Office Visit [facility] [address] [phone] Tosin Leal ARNP [address] [phone] documented as of this encounter Visit Diagnoses Not on filedocumented in this encounter Care Teams Human Resource Assistant Relationship Specialty Start Date End Date Mayra Calvillo MD [address] [place] [address] PCP - General Internal Medicine 09/03/20 documented as of this encounter
--- OUTSIDE RECORDS SUMMARY | 2024-07-04 13:12 | XMS_ITS | Data Portability ---
Author Organization [place] [facility] [place], Main Office Address [address] [facility] [address] [place] [address] Care Team Providers Care [employer]ical [employer] Internship Name Role Phone KARINA TRACY Primary Care Provider [phone] Assessment Encounter Date Assessment Date Assessment LastModified by Organization Details LastModified Time 07/12/2018 07/12/2018 I have reconciled the patient's medications post their discharge from inpatient facility. [email or web address] Not available 07/12/2018 10:17:18 07/14/2018 07/14/2018 1. Pulmonary alveolar hemorrhage? b ronchial lavage results as stated above. 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 Blood tests for ANCA, SCOTT, anti-GBM, lupus were all negative. C-reactive protein initial test was elevated but after steroids it decrease to less than 0.29 only positive tests is rheumatoid factor. He is going back to [place] in 2 weeks. He needs to be followed up by rheumatology because of above diagnosis possibly secondary to vasculitis. He was advised to decrease prednisone to 35 mg ? ? 1 week and then decrease to 30 mg daily until seen by rheumatology in [place]. He was told to bring a copy of his chest x-ray and CAT scan of the chest in CD form to his physician [place]. He can get copies of vasculitis workup with the medical records but I documented above negative and positive testing as stated above. 2. Hypoxemia? i mproving. I ambulated the patient and O2 saturation lobe as was 93%. He will need a portable concentrator to use when he flies to [place]. He did had episode of 88% 1 morning as per patient 3. Chronic atrial fibrillation? o n Coumadin 4. Dyspnea? i mproving Patient was advised to see me when he returns to [place] in Winter [email or web address] Not available 07/15/2018 05:53:29 Plan of Treatment Reminders Order Date Submit Date Provider Last Modified By Organization Details Last Modified Time Details Appointments None recorded. Lab None recorded. Referral coumadin clinic referral 2018 019 [email or web address] Not available 0 15:56:50 orthopedic referral 2017 018 esdras London MD ([facility]), [address] [facility], [place], [address], 8 08:06:57 Procedures None recorded. Surgeries None recorded. Imaging XR, knee 2017 018 ANA In-Office Order, Internal Use Only DO Not Attach Compendium DO Not Attach Compendium, Do Not Delete/merge, [id number] 8 17:14:51 Medication Orders Lantus Solostar U-100 Insulin 100 unit/mL (3 mL) subcutaneo us pen 2018 019 INTERFACE [id number], [address], [place], [address], 9 10:25:09 Patient TargetsNo targets recorded. Patient Instructions Encounter Date Encounter Id Patient Instructions Last Modified By Organization Details Last Modified Time 07/12/2018 [id number] type 2 diabetes: care instructions [email or web address] Not available 07/12/2018 12:44:37 Please review yo [...] status*}} Required Home Health Services : {{none* shelter, physical therapy, occupational therapy shelter, physical therapy shelter}} . Durable Medical Equipment needed : {{none cane walker walker with seat manual wheelchair* bedsid e commode oxygen}} {{cane walker walk er with seat manual wheelchair bedside commode oxygen*}} {{cane walker walk er with seat manual wheelchair bedside commode oxygen}} Possible Billing Options based on supporting documentation from your encounter: E&M Code 24484 - 68648 or 86053 - 80608? Office Visit Hospital Follow-Up CPT Code 21930 - Transitional Care Management services with moderate medical decision complexity (rfho-pk-tdlg visit within 14 days of discharge).* CPT Code 57925 - Transitional Care Management services with high medical decision complexity (htxg-it-cons visit within 7 days of discharge). * * See TCM [facility] education packet for criteria: [email or web address] [email or web address]/CS/CI/Sit ePages/AthenaSarbjiti ls.aspx [email or web address] Not available 07/12/2018 12:44:36 07/26/2018 [id number] high blood pressure: care instructions [email or web address] Not available 07/26/2018 10:48:22 learning about high blood pressure Not available 07/26/2018 10:48:22 atrial fibrillation: care instructions [email or web address] Not available 07/26/2018 10:48:22 type 2 diabetes: care instructions [email or web address] Not available 07/26/2018 10:25:08 Reason for Referral Orthopedic Referral for Pain in left knee Referring Physician: Shannan Love, Family Medicine, Encounter Date: 05/25/2017 Referring Physician: Oscar Caruso Family Medicine, Encounter Date: 07/12/2018 Results Created Date Observation Date Name Description Value Unit Range Abnormal Flag Note LastModifiedBy Organization Detail LastModifiedTime 06/28/1906/27/2018 lab add on order test requsted to add on crp Not Available Physic ians [facility] [address] [place], [address], 06/27/2018 12:22:10 06/28/1906/27/2018 lab add on order lab disposition Test Added Not Available Physicians [facility] [address] [place] [address], [address], 06/27/2018 12:22:10 06/28/1906/27/2018 lab add on order disposition of request The test has been added to [facility] er acces rajat for testi ng. No critical access hospital er actio n requi red. Not Available Physicians [address], [address], 06/27/2018 12:22:10 06/28/19 19 06/27/2018 lab add on order test requsted to add on ESR Not Available Physic [address], [address], 06/27/2018 14:51:09 06/28/19 19 06/27/2018 lab add on order lab disposition Test Added Not Available Physicians [address], [address], 06/27/2018 14:51:09 06/28/19 19 06/27/2018 lab add on order disposition of request The test has been added to [facility] er acces rajat for testi ng. No critical access hospital er actio n requi red. Not Available Physicians [address], [address], 06/27/2018 14:51:09 06/28/19 19 06/27/2018 lab add on order test requsted to add on procal citoni n Not Available Physicians [address], [address], 06/27/2018 14:52:11 06/28/19 19 06/27/2018 lab add on order lab disposition Test Added Not Available Physicians [address], [address], 06/27/2018 14:52:11 06/28/19 19 06/27/2018 lab add on order disposition of request The test has been added to [facility] er acces rajat for testi ng. No critical access hospital er actio n requi red. Not Available Physicians [address], [address], 06/27/2018 14:52:11 07/15/19 19 07/14/2018 xr chest 2 V Physic [facility] joe Rubalcava t: KEVIN RODRÍGUEZ [id number]:[id number] : [birth year] 37 Sex: Male Locati on: [facility] Orderi ng Physic fabian: IBRAHIMA AMIN [...] Rock Hays MD On 2018 16:30: 26; VR-NPR [id number] 18 Final Signed by: ROCK HAYS MD Signed (Elect ranjithbao Signat ure): 2018 04:30 pm EDT [email or web address] [facility] [place] [address] [place], [address], 07/21/2018 09:57:45 Result Notes None recorded. Problems Name Problem SNOMED Code Status Onset Date Resolution Date Notes Provider Name and Address Organization Details Recorded Time Hypertensive disorder 51427005 Active 2017 Temi Laws LPN null, [place] [facility] [place] 8 14:38:39 Hyperlipidemia 16199323 Active 2017 Tmei Laws LPN null, [address] 8 14:38:45 Gout 92575958 Active 2017 Temi Laws WEIGHT CHECKER rocco, [address] 8 14:38:50 Atrial fibrillation 84061064 Active 2017 Temi Laws LPN rocco, [address] 8 14:38:57 Notes:Some problems listed i n Document: #[id number] could not be added to this patient's chart. Please review this document and add these problems to the patient's chart manually as needed. Problem Notes None recorded. Procedures Surgical History Date Name Laterality Status Provider Name and Address Organization Details Recorded Time 07/13/19 19 Transitional_Ca re_Management completed Funmi Braxton CMA [address] 07/12/2018 10:17:19 06/04/19 18 Cortisone Injection (Knee) 80 MG completed Claudia Marin Asst Cert [address] 06/03/2017 09:13:28 03/23/19 01 Endometrial Ablation completed Temi Laws LPN [address] 05/25/2017 14:42:53 03/23/18 71 Ankle arthroscopy/sanjuana ursula completed Temi Laws LPN [address] 05/25/2017 14:41:36 Ankle arthroscopy/sanjuana ursula completed Temi Laws LPN [address] 05/25/2017 14:41:53 Imaging Results Imaging Date Name Status LastModified by Organiz ation Details LastModified Time 07/14/2018 xr chest [email or web address] [place] [address], [address], 07/21/2018 09:57:45 Procedure Notes None recorded. Medical [...] Address Organization Details Last Updated DateTime 8 26190.4 4 g 28.6 kg/m2 180.34 cm 97.7 [degF] 55 /min 16 /min 98 % 98 % 132 mm[Hg] 80 mm[Hg] Temi Laws LPN [place] [facility] [place] 8 14:36:00 Date Recorded Pain severity - 0-10 verbal numeric rating [Score] - Reported Provider Name and Address Organization Details Last Updated DateTime 05/25/2017 5 Not Available [facility] 8 02:06:38 Date Recorded Body height Body mass index (BMI) Body weight Provider Name and Address Organization Details Last Updated DateTime 06/03/2017 180.34 cm 28.6 kg/m2 51487.44 g Manpreet Marie [place] [facility] [place] 06/03/2017 08:57:33 Date Recorded Pain severity - 0-10 verbal numeric rating [Score] - Reported Body weight Body mass index (BMI) Body height Body temperature Respiratory rate Heart rate Oxygen saturation Oxygen saturation in Arterial blood by Pulse oximetry Systolic blood pressure Diastolic blood pressure Provider Name and Address Organization Details Last Updated DateTime 9 0 04906.9 2 g 27.1 kg/m2 180.34 cm 98.5 [degF] 14 /min 70 /min 97 % 97 % 100 mm[Hg] 60 mm[Hg] Funmi Braxton CMA [place] [facility] [place] 9 10:25:02 Date Recorded Body height Body mass index (BMI) Body weight Heart rate Respiratory rate Oxygen saturation Oxygen saturation in Arterial blood by Pulse oximetry Systolic blood pressure Diastolic blood pressure Provider Name and Address Organization Details Last Updated DateTime 9 180.34 cm 27.2 kg/m2 24646.5 1 g 66 /min 14 /min 95 % 95 % 106 mm[Hg] 64 mm[Hg] Hortensia Steen LPN Clinic Office [address] 9 09:35:51 Date Recorded Body height Pain severity - 0-10 verbal numeric rating [Score] - Reported Body mass index (BMI) Body weight Body temperature Respiratory rate Heart rate Oxygen saturation Oxygen saturation in Arterial blood by Pulse oximetry Systolic blood pressure Diastolic blood pressure Provider Name and Address Organization Details Last Updated DateTime 9 180.34 cm 0 26.5 kg/m2 99777.5 5 g 98 [degF] 14 /min 74 /min 97 % 97 % 80 mm[Hg] 60 mm[Hg] Funmi Braxton CMA [address] 9 09:50:38 Social History Question Answer Notes LastModified by [employer] ion Details LastModified Time Tobacco Smoking Status Never Smoker Temi Laws LPN [address] 05/25/2017 14:41:08 What Is Your Level [...] History Condition Response Coronary Artery Disease N Gout Y Anxiety/Depression N Other N Thyroid Disease N Atrial Fibrillation Y Kidney Stones N Blood clot/deep vein thrombosis N Hyperthyroidism N Mammograms N Colonoscopy N Sexually Transmitted Disease N Depression N Blood Clots N COPD N Hypothyroidism N Bipolar N UTI N Diverticulitis/Diverticulosis N No past medical history reported N Has Pacemaker N Deep Vein Thrombosis N Muscle, Joint, or Bone Problems N Hiatal hernia N Arthritis N bronchitis N Abnormal Pap Smear N Cancer N Stroke N Alcohol abuse N Aortic Valve Disease N Bladder or Kidney Problems N Dexa Scan N Aortic Aneurysm N Liver Disease N Arrhythmia N Dialysis N Tobacco Use N Kidney Disease N Osteoarthritis N urinary problems N Migraines N GI Problems N Anemia N Abdominal Pain N Heart Attack (MT) N Ulcers N Diabetes N Ovarian Cancer N Cardiomyopathy N Blood Transfusions N Seizures/Epilepsy N AIDS/HIV N Immunizations N Congestive Heart Failure (CHF) N Hyperlipidemia Y Chronic Pain N CVA N Dementia N Asthma N Allergies N GERD/Reflux N Hepatitis N Heart Disease N Pulmonary Embolism N Hypertension Y Chicken Pox N Osteoporosis N Weight Loss, excessive N Immunizations Vaccine Type Date Status Note Provider Nam e and Address Organization Details Recorded Time Influenza, high-dose, trivalent, PF 9 completed Funmi Braxton [address] 07/26/2018 09:53:58 Influenza, split virus, quadrivalent, preservative 7 completed Not Available [facility] 04/23/2019 02:11:21 Past Encounters Encounter ID Performer Location Encounter Start Date Encounter Closed Date Diagnosis/Indication Diagnosis SNOMED-CT Code Diagnosis ICD10 Code Diagnosis Note [id number] CHRIS BLANCHARD [facility] [address] [place] [address] 05/25/2017 13:30:02 05/25/2017 15:34:01 Pain in left knee 5807622052 53273 M25.562 patient is reluctant to any other form of treatment except for corticoste roid injection. Would like to be seen by orthopedic . Will refer to Dr. 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 Chronic at rial fibrillation 020908318 I48.2 rate controlled will continue amlodipine and coumadine , referred to coumadin clinic for INR monitoring Interstiti al lung disease 626608551 J84.9 still pending anca results , bronchosco py negative , will continue prednisone 40 mg to complete 10 days of treatment them will taper dosis of over 1 or 2 weeks . follow up with pulmonolog ist in 2 days Type 2 shobha betes mellitus without complication 862790574 E11.9 hemoglobin a1c today 7.7 in hte office , will continue insulin 70/30 10 units bid for now , will recommend to follow up with pcp [place] , in 2-3 weeks to start oral hypoglycem ic agents. [id number] TANA RODRIGUEZ MD [facility] [address] [facility] [address] [place] [address] 07/14/2018 09:18:09 07/14/2018 12:19:02 Pulmonary hemorrhage 14575057 R04.89 Hypoxemia 929203596 R09. 02 Dyspnea on exertion 6084 5006 R06.09 Chronic at rial fibrillation 487988062 I48.2 [id number] Oscar Caruso MD [facility] PCP [address] [place] [address] 07/26/2018 09:27:44 07/26/2018 10:41:50 Type 2 diabetes mellitus without complication 343018796 E11.9 controlled will continue current medication s refills to lantus provided today Atrial fibrillation 4947 6004 I48.91 rate controlled and ijn anticoagul ation with coumadin , will continue amlodipine ands coumadin Pulmonary hemorrhage 781 57022 R04.89 anca , scott , anti gbm ab negative symptoms resolving , no sob good oxygenatio n , and good exercise tolerance , using prednisone 40 mg po wd , will start tapering the dosis , today , start 20 mg po qd and continue tapering under the [place] , [place] of all labs provided to patient today shila take it with him . Essential hypertension 26355238 I10 controlled will continue low salt diet and current medication s . Health Concerns Section Related Observation LastModified by Organization Detai ls LastModified Time None Recorded Concern Status LastModified by Organization Details LastModified Time None Recorded Advance Directives Directive None Recorded Payers Encounter Date Sequence Insurance Name Policy Number Policy Garcia Covered Member ID Garcia Member ID Guarantor Name 05/25/2017 1 [place] Kevin Garcia Marcos [id number] Kevin Marcos 05/25/2017 2 [place] [facility] [id number] Kevin Marcos [id number] Kevin Marcos 06/03/2017 1 [place] Kevin Garcia Marcos [id number] Kevin Marcos 06/03/2017 2 [place] [id number] Kevin Marcos [id number] Kevin Marcos 07/12/2018 1 [place] Kevin Garcia Marcos [id number] Kevin Marcos 07/12/2018 2 [place] [id number] Kevin D Marcos [id number] Kevin Marcos 07/14/2018 1 [place] Kevin D Marcos [id number] Kevin Marcos 07/14/2018 2 [place] [id number] Kevin D Marcos [id number] Kevin Marcos 07/26/2018 1 [place] Kevin Garcia Marcos [id number] Kevin Marcos 07/26/2018 2 [place] [id number] Kevin D Marcos [id number] Kevin Marcos Notes Date Note Type Note Provider Name and Address Organization Details Recorded Time 05/25/2017 text/html Patient is a ple asant 77 yo male who presents with left knee pain. States he has hx of issues with his knees and back home in [place] he receives corticosteroid injections and it significantly helps. States the past few weeks he has been very active and prior to the pain starting he went for a long walk. Has hx of gout, but states it doesn't feel like gout. Hx of atrial fibrillation on eliquis BID. SHANNAN LOVE [facility] [address], [place], [address], [address] 05/25/2017 15:25:43 06/03/2017 text/html Knee PainReporte d [...] habits;swelling;warmt h;popping/clicking Previous Surgery:none Prior Imaging:x ray ([facility]) Previous PT:none Previous Injections:none Work Related:no Work Level:no; regular duty Sport Level:unrestricted; light VIANCA LONDON MD [address], [place], [address], [address] 06/10/2017 07:33:08 07/12/2018 text/html patient here [...] hypoglycemic episodes reported . Oscar Caruso MD [address] [place] [address], [address], [facility] [place] 07/12/2018 12:45:12 07/14/2018 text/html Patient is an [...] or any chest pain TANA RODRIGUEZ MD [address] [place] [address], [address], [facility] [place] 07/15/2018 05:55:52 07/26/2018 text/html patient here tod ay for follow up in his atrial fibrillation rate controlled and in coumadin last inr 3.1 , he was seen by senior environmental practice leader last week , results of the SCOTT , ANCA , and anti GBM ab negatives , patient filling much better , no sob , better exercises tolerance , good O2 sat , Diabetes mellitus controlled with normal blood sugar values , patient will travel back [place] in 3 days and will follow upo with his pcp up there . Oscar Caruso MD [address] [place] [address], [address], [place] [facility] [place] 07/26/2018 10:48:41
== END 2024-07-04 12:06 | disposition home or self-care (01) ==
PROVIDERS: PCP Internal Medicine; Visit Provider Internal Medicine
DX: I73.9 Peripheral vascular disease, unspecified (principal); I42.9 Cardiomyopathy, unspecified; I25.10 Atherosclerotic heart disease of native coronary artery without angina pectoris; N18.30 Chronic kidney disease, stage 3 unspecified; Z23 Encounter for immunization

== ENCOUNTER → 2024-07-04 11:10 | Outpatient (BNVA) | payer MEDICARE, SELFPAY | PROVIDERS: PCP Internal Medicine; Visit Provider Internal Medicine | DX: Z23 Encounter for immunization (principal); I73.9 Peripheral vascular disease, unspecified; I42.9 Cardiomyopathy, unspecified; I25.10 Atherosclerotic heart disease of native coronary artery without angina pectoris; N18.30 Chronic kidney disease, stage 3 unspecified | CPT/HCPCS: 90471; 90677; 96127; 99212 ==

== ENCOUNTER 2025-01-11 11:27 | Outpatient (AMB) | payer MEDICARE, SELFPAY ==
[2025-01-11 11:41] VITALS: BP 126/70; PULSE 89; RESP 19; O2SAT 95; BMI 24.3
--- NOTE | 2025-01-11 11:41 | A.OFFVIS_ITS ---
Intake Vital Signs 01/11/25 11:41 Height 5 ft 11 in Weight 174 lb BMI 24.3 BP 126/70 Blood Pressure Location Lt brachial Position Sitting Respiration 19 Pulse 89 Pulse Source Pulse Oximeter Pulse Oximetry (%) 95 Oxygen Delivery Method Room Air Intake Visit Reasons: SWV G0439 Intake Note: Pt is here today for AWV. Allergies Fluticasone nasal spray Adverse Reaction (Intermediate, Uncoded 01/11/25 11:41) Nosebleed HPI SWV G0439 HPI Details Initiated the conversation about Advanced Directives. Advanced Directives help? patients prepare for current and future decisions about their medical treatment? and place of care. Discussed with patient that it is a process where a patients? current condition and prognosis are reviewed, their wishes for information? regarding their illness are elicited, and likely medical dilemmas are presented? and options discussed. The form can be amended as needed, reviewed yearly and? make changes as needed IPPE/AWV ? year old presents? for her ? Annual? Wellness Visit, initial visit.? Medical / Social History Reviewed? Past Medical History ?Yes? . ? [place]? of Care / Care Team list updated ?Yes . ? Surgical/Hospitalization? History ?Yes . ? Current Medications? (including OTC and supplements) ?Yes . ? Family History ?Yes? . ? Tobacco? Control form ?Yes . ? AUDIT-C (Alcohol use) form? ?Yes . ? Illicit drug use in Social? History ?Yes . ? Current diagnosis of? depression? ?No ? Appropriate PHQ2/PHQ9? completed ?Yes . ? Data entered by ?Medical? Food And Beverage Order Clerk and reviewed by provider ? Fall Risk ? Fall? History? Have you had any falls with? injury in the past year? ?No . ? Have you had two or more? falls in the past year? ?No . ? Fall Risk Assessment: ?No? falls in the past year . ? HRA filled out by? the patient, reviewed by Provider and scanned. ? IPPE/AWV ? Balance? [place]? ?Yes . ? Tandem? walk ?Yes . ? Walk and? Turn ?Yes . ? Rise from? sit to stand ?Yes . ?Vision? Corrective? lens ?Yes ? Vision? screen ? Up-to-date, has an appointment [] for vision? screening and glaucoma screening ?Hearing? Whisper? test ?pass .? Initiated the conversation about Advanced Directives. Advanced Directives help? patients prepare for current and future decisions about their medical treatment? and place of care. Discussed with patient that it is a process where a patients? current condition and prognosis are reviewed, their wishes for information? regarding their illness are elicited, and likely medical dilemmas are presented? and options discussed. The form can be amended as needed, revi ewed yearly and? make changes as needed Written? Plan?Completed. See Patient? Documents. [facility] Medical History Claudication of left lower extremity CAD (coronary artery disease) Hyperlipemia CKD (chronic kidney disease), stage III Bradycardia Cardiomyopathy BPH (benign prostatic hyperplasia) Spinal stenosis Gout Thoracic aortic aneurysm Flexor tenosynovitis of finger Surgical History History of fusion of cervical spine H/O prior ablation treatment History of ankle surgery History of carpal tunnel surgery History of shoulder surgery Hx of cholecystectomy Family History Father COPD (chronic obstructive pulmonary disease) Mother Heart disease Colon cancer CVD (cardiovascular disease) Social History Housing: House Patient Tobacco Use Status: Never used Tobacco e-Cigarette/Vaping Use: Never Used service: Yes Current occupational status: retired Cognitive needs: No Hearing needs: Yes Vision needs: No Questionnaire Medicare Wellness Checkup What is your age?: 78 or older What gender do you identify with?: male During the past 4 weeks, how much have you been bothered by emotional problems such as feeling anxious, depressed, irritable, sad or downhearted, and blue?: not at all During the past 4 weeks, has your physical & emotional health limited your social activities with family, friends, neighbors, or groups?: slightly During the past 4 weeks, how much bodily pain have you generally had?: moderate pain During the past 4 weeks, was someone available to help you if you needed & wanted help?: yes, as much as I wanted During the past 4 weeks, what was the hardest physical activity you could do for at least 2 minutes?: light Can you get to places out of walking distance without help? (For eg., can you travel alone on buses, taxis or drive your car?): Yes Can you go shopping for groceries or clothes without someone's help?: Yes Can you prepare your own meals?: Yes Can you do your housework without help?: Yes Because of any health problems, do you need the help of another person with your personal care needs such as eating, bathing, dressing or getting around the house?: No Can you handle your own money without help?: Yes During the past 4 weeks, how would you rate your health in general?: fair During the past 4 weeks how have things been going for you?: good & bad parts about equal Are you having difficulties driving your car?: no Do you always fasten your seat belt when you are in a car?: yes, usually During past 4 weeks, have you been bothered by the following: never: Sexual problems?, Trouble eating well?, Teeth or denture problems? and Problems using the telephone? and sometimes: Falling or dizzy when standing up and Tiredness or fatigue? Have you fallen 2 or more times in the past year?: No Are you afraid of falling?: Yes Are you a smoker?: no During the past 4 weeks, how many drinks of wine, beer, or other alcoholic beverages did you have?: 1 drink or less per week Do you exercise for about 20 minutes 3 or more times a week?: yes, most of the time Have you been given information to help with the following?: yes: Hazards in your house that might hurt you? and no: Keeping track of your medications? How often do you have trouble taking medicines the way you have been told to take them?: I always take medicine as prescribed How confident are you that you can control & manage most of your health problems?: very confident What is your race?: White Mini Mental State Exam (MMSE) Orientation What is the (year) (season) (date) (day) (month)?: year, season, date, day and month Where are we (state) (county) (town or city) (hospital) (floor)?: state, county, town or city, hospital/clinic and floor Registration Name of 3 unrelated objects clearly and slowly, then ask patient to repeat all 3 of them. (1st repeat determines score. Make sure they can repeat all three): object 1, object 2 and object 3 Attention & Calculation (CHOOSE ONE) Spell WORLD backwards (DLROW): 5 letters Recall Ask patient to repeat the 3 items from question #3.: object 1, object 2 and object 3 Language Show patient a wristwatch & ask what it is. Repeat for pencil.: watch and pencil Ask the patient to repeat the phrase 'No ifs, ands, or buts' after you.: correct Ask the patient to 'take a piece of paper with their right hand' 'fold paper in half' 'place paper on floor': take paper in right hand, fold paper in half and place paper on floor Print the sentence 'CLOSE YOUR EYES' on a piece. If patient actually closes eyes then score.: followed written direction Give patient a blank piece of paper & ask to write a sentence. Score if it contains a noun & verb.: sentence contains subject and verb Score Score: 29 PHQ-9 Over the last 2 weeks, how often have you been bothered by any of the following problems? 1. Little interest or pleasure in doing things: not at all 2. Feeling down, depressed, or hopeless: several days 3. Trouble falling or staying asleep, or sleeping too much: not at all 4. Feeling tired or having little energy: not at all 5. Poor appetite or overeating: not at all 6. Feeling bad about yourself - or that you are a failure or have let yourself or your family down: not at all 7. Trouble concentrating on things, such as reading the newspaper or watching television: not at all 8. Moving or speaking so slowly that other people could have noticed. Or the opposite - being so fidgety or restless that you have been moving around a lot more than usual: not at all 9. Thoughts that you would be better off or of hurting yourself in some way: not at all Total score: 1 Depression Screening Interpretation: Negative Depression Screening Done: Yes Source: Developed by Drs. Tomas Duran, Marion Miranda, Jony Kyle and colleagues, with an educational [place] from [employer]. Review of Systems Const All systems reviewed & are unremarkable except as noted in HPI and below Eyes Reports no additional complaints ENT Reports no additional complaints Card Reports no additional complaints Resp Reports no additional complaints GI Reports no additional complaints Reports no additional complaints Musc Reports no additional complaints Physical Exam Vital Signs: Last Vital Signs Pulse 89 01/11/25 11:41 Resp 19 01/11/25 11:41 BP 126/70 01/11/25 11:41 Pulse Ox 95 01/11/25 11:41 Oxygen Delivery Method Room Air 01/11/25 11:41 BMI result Body Mass Index 24.3 Const General: no acute distress HEENT Head: Yes normal to inspection Ears: hearing grossly normal bilaterally Throat: Yes posterior oropharynx normal Neck Neck: Yes no lymphadenopathy and Yes supple Resp Effort & Inspection: normal respiratory effort Auscultation: diminished lung sounds Cardio Rhythm: regular rhythm Heart sounds: S1 normal heart sound present and S2 normal heart sound present GI Inspection: Yes normal to inspection Palpation (GI): Soft to palpation Percussion: Yes normal to percussion Auscultation: normal bowel sounds Extrem General: Yes no clubbing, cyanosis or edema Assessment & Plan Assessment & Plan (1) Cardiomyopathy: 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 Vivar/ Dr. Miranda, Echo 03/14 EF 45%, Echo 01/2024 [facility] EF 35-40%, global hypokinesis with mid hypokinesis and basal inferior and inferior septal oliveira Code(s): I42.9 - Cardiomyopathy, unspecified Plan: Follow-up with cardiology (2) CAD (coronary artery disease): Comment: s/p LAD ERNIE 2018, s/p RCA ERNIE [address] [facility] [address]. Miranda, s/p cardiac cath 01/2024 [facility] mid LAD mechanical thrombectomy for large thrombus, started on Eliquis Code(s): I25.10 - Atherosclerotic heart disease of [place] coronary artery without angina pectoris Plan: f/u with cardiology (3) CKD (chronic kidney disease), stage III: Comment: Follow-up with Dr. Garcia Code(s): N18.30 - Chronic kidney disease, stage 3 unspecified Plan: f/u nephrology, monitor renal function (4) Claudication of left lower extremity: Comment: Follow-up with [facility] vascular surgeon Code(s): I73.9 - Peripheral vascular disease, unspecified Plan: Follow-up with the vascular surgeon continue statin and Eliquis (5) Hyperlipemia: Code(s): E78.5 - Hyperlipidemia, unspecified Plan: Continue statin Quality Reporting (2019) Depression/Bipolar (159/160/161/177) PHQ-9: Total score: 1 Coding Level of Care Code Medicare Subsequent (G0439) Diagnoses Cardiomyopathy I42.9 CAD (coronary artery disease) I25.10 CKD (chronic kidney disease), stage III N18.30 Claudication of left lower extremity I73.9 Hyperlipemia E78.5 CPT Codes Advance Care Planning - Advance Care Planning discussion: On file, no changes ([id number]) Advance Care Planning - Time spent: 1-15 minutes, on File ([id number]) Advance Care Planning Advance Care Planning discussion: On file, no changes Forms completed: Health Care Proxy Time spent: 1-15 minutes, on File
== END 2025-01-11 13:34 | disposition home or self-care (01) ==
LOC: HO.HMCC 11:27
PROVIDERS: PCP Internal Medicine; Visit Provider Internal Medicine
DX: Z00.00 Encounter for general adult medical examination without abnormal findings (principal); I42.9 Cardiomyopathy, unspecified; N18.30 Chronic kidney disease, stage 3 unspecified; I25.10 Atherosclerotic heart disease of native coronary artery without angina pectoris; I73.9 Peripheral vascular disease, unspecified; E78.5 Hyperlipidemia, unspecified